=== PATIENT | male | born 1950 | race Caucasian/White ===

== ENCOUNTER 2020-03-20 09:08 | Outpatient (REF) | payer MEDICARE, SELFPAY ==
[2020-03-20 10:12] LABS: Blood Urea Nitrogen 24 mg/dL (9-16); Estimated Glomerular Filt Rate > 60
== END 2020-03-20 09:09 | disposition home or self-care (01) ==
LOC: HO.LAB 09:08
PROVIDERS: PCP Internal Medicine; Visit Provider Internal Medicine
DX: R79.9 Abnormal finding of blood chemistry, unspecified (principal)
CPT/HCPCS: 36415; 82565; 84520

== ENCOUNTER 2020-04-20 10:30 | Outpatient (REF) | payer MEDICARE, SELFPAY ==
[2020-04-20 11:29] LABS: Blood Urea Nitrogen 24 mg/dL (9-16); Estimated Glomerular Filt Rate > 60
== END 2020-04-20 10:31 | disposition home or self-care (01) ==
LOC: HO.LNP 10:30
PROVIDERS: Visit Provider Internal Medicine
DX: R79.9 Abnormal finding of blood chemistry, unspecified (principal)
CPT/HCPCS: 82565; 84520

== ENCOUNTER 2021-02-27 10:27 | Outpatient (REF) | payer MEDICARE, SELFPAY ==
[2021-02-27 10:31] LABS: MANUAL DIFF FLAG NO
[2021-02-27 11:01] LABS: Basophils Percent Auto 0.7 % (0-2); Eosinophils Absolute Auto 0.2 X10*3/uL (0.0-0.4); Eosinophils Percent Auto 3.1 % (0-4); Hemoglobin 13.1 g/dl (14.0-18.0); Imm Gran Abs Auto 0.01 X10*3/uL (0.00-0.03); Imm Gran Pct Auto 0.2 % (0.0-0.4); Lymphocytes Absolute Auto 1.6 X10*3/uL (1.2-4.9); Lymphocytes Percent Auto 28.5 % (20-40); Mean Corpuscular HGB Conc 31.2 g/dl (31.0-36.0); Mean Corpuscular Hemoglobin 27.2 pg (27.0-33.0); Mean Corpuscular Volume 87.3 fL (80.0-98.0); Mean Platelet Volume 10.3 fL (9.4-12.4); Monocytes Absolute Auto 0.3 X10*3/uL (0.1-1.2); Monocytes Percent Auto 5.6 % (2-11); Neutrophils Absolute Auto 3.5 x10*3/uL (2.0-8.3); Neutrophils Percent Auto 61.9 % (45-73); Platelet Count 222 X10*3/uL (160-400); Red Blood Count 4.81 X10*6/uL (4.60-5.80); White Blood Count 5.6 X10*3/uL (4.8-10.8)
[2021-02-27 11:14] LABS: Estimated Average Glucose 111 mg/dL; Hemoglobin A1c % 5.5 %
[2021-02-27 11:17] LABS: Appearance Urine CLEAR; Color Urine YELLOW; Glucose Urine UA NEG (NEG); Leukocyte Esterase Urine NEG (NEG); Nitrite Urine NEG (NEG); PH 5.5 (5.0-8.0); Specific Gravity - Urine >= 1.030 (1.005-1.025); Urine Blood NEG (NEG); Urine Ketones 5 MG/DL (NEG); Urine Protein NEG (NEG-TRACE)
[2021-02-27 11:25] LABS: Creatinine Urine 172.93 mg/dL; Microalbum/Creatinine Ratio Ur 4.6 ug/mg cr
[2021-02-27 11:29] LABS: Alanine Aminotransferase 13 U/L (0-40); Albumin Level 3.9 g/dL (3.5-5.0); Alkaline Phosphatase 72 U/L (39-117); Anion Gap 11 (12-20); Aspartate Amino Transferase 16 U/L (5-37); Bilirubin Total 0.7 mg/dL (0.0-1.0); Blood Urea Nitrogen 15 mg/dL (9-16); Calcium 9.1 mg/dL (8.4-10.2); Carbon Dioxide 29 mmol/L (22-29); Chloride 109 mmol/L (96-108); Estimated Glomerular Filt Rate > 60; Glucose Fasting 106 mg/dL (60-99); Potassium 4.6 mmol/L (3.3-5.1); Sodium 144 mmol/L (135-145); Total Protein 6.5 g/dL (6.5-8.0)
[2021-02-27 11:44] LABS: PSA,Total (Free>4and<10) 2.36 ng/mL (0.00-4.00)
== END 2021-02-27 10:28 | disposition home or self-care (01) ==
LOC: HO.LNP 10:27
PROVIDERS: Visit Provider Internal Medicine
DX: Z12.5 Encounter for screening for malignant neoplasm of prostate (principal); R73.03 Prediabetes; I10 Essential (primary) hypertension; R79.9 Abnormal finding of blood chemistry, unspecified; N40.0 Benign prostatic hyperplasia without lower urinary tract symptoms
CPT/HCPCS: 80053; 81003; 82043; 83036; 84153; 85025

== ENCOUNTER 2022-04-30 11:20 | Outpatient (REF) | payer MEDICARE, SELFPAY ==
[2022-04-30 11:26] LABS: MANUAL DIFF FLAG NO
[2022-04-30 12:01] LABS: Basophils Absolute Auto 0.1 X10*3/uL (0.0-0.2); Basophils Percent Auto 0.9 % (0-2); Eosinophils Absolute Auto 0.3 X10*3/uL (0.0-0.4); Eosinophils Percent Auto 3.9 % (0-4); Hematocrit 45.5 % (42.0-52.0); Hemoglobin 14.1 g/dl (14.0-18.0); Imm Gran Abs Auto 0.04 X10*3/uL (0.00-0.03); Imm Gran Pct Auto 0.6 % (0.0-0.4); Lymphocytes Percent Auto 30.4 % (20-40); Mean Corpuscular Hemoglobin 26.4 pg (27.0-33.0); Mean Platelet Volume 9.8 fL (9.4-12.4); Monocytes Absolute Auto 0.4 X10*3/uL (0.1-1.2); Monocytes Percent Auto 5.8 % (2-11); Neutrophils Absolute Auto 3.9 x10*3/uL (2.0-8.3); Neutrophils Percent Auto 58.4 % (45-73); Platelet Count 214 X10*3/uL (160-400); Red Blood Count 5.35 X10*6/uL (4.60-5.80); White Blood Count 6.7 X10*3/uL (4.8-10.8)
[2022-04-30 12:09] LABS: Appearance Urine Clear; Color Urine Yellow; Glucose Urine UA Negative (Negative); Leukocyte Esterase Urine Negative (Negative); Nitrite Urine Negative (Negative); UMIC TRIGGER UACC YES; Urine Blood Trace (Negative); Urine Ketones Negative (Negative); Urine Protein Negative (Neg-Trace)
[2022-04-30 12:12] LABS: Bacteria Urine None Seen (None Seen); Hyaline Casts Urine 0-2 /LPF (0-2); Squamous Epithelial Cell Urine 0-2 /HPF (0-2); WBC Urine 0-5 /HPF (0-5)
[2022-04-30 12:23] LABS: Estimated Average Glucose 123 mg/dL; Hemoglobin A1c % 5.9 %
[2022-04-30 12:40] LABS: Creatinine Urine 120.76 mg/dL; Microalbum/Creatinine Ratio Ur 7.4 ug/mg cr
[2022-04-30 13:06] LABS: Alanine Aminotransferase 16 U/L (0-40); Alkaline Phosphatase 71 U/L (39-117); Anion Gap 12 (12-20); Aspartate Amino Transferase 18 U/L (5-37); Bilirubin Total 0.5 mg/dL (0.0-1.0); Blood Urea Nitrogen 21 mg/dL (9-16); Calcium 8.7 mg/dL (8.4-10.2); Carbon Dioxide 29 mmol/L (22-29); Chloride 108 mmol/L (96-108); Cholesterol 214 mg/dL; Estimated Glomerular Filt Rate > 60; Glucose Fasting 109 mg/dL (60-99); HDL Cholesterol 48 mg/dL; LDL Cholesterol Calculated 143 mg/dl; Potassium 4.7 mmol/L (3.3-5.1); Sodium 144 mmol/L (135-145); Total Protein 6.4 g/dL (6.5-8.0); Triglycerides 117 mg/dL
[2022-04-30 13:22] LABS: PSA,Total (Free>4and<10) 3.16 ng/mL (0.00-4.00)
== END 2022-04-30 11:21 | disposition home or self-care (01) ==
LOC: HO.LNP 11:20
PROVIDERS: Visit Provider Internal Medicine
DX: I10 Essential (primary) hypertension (principal); R73.09 Other abnormal glucose; N40.0 Benign prostatic hyperplasia without lower urinary tract symptoms; Z12.5 Encounter for screening for malignant neoplasm of prostate
CPT/HCPCS: 80053; 80061; 81001; 82043; 83036; 84153; 85025

== ENCOUNTER 2022-06-04 10:49 | Outpatient (REF) | payer MEDICARE, SELFPAY ==
[2022-06-04 13:03] LABS: PSA,Total (Free>4and<10) 2.95 ng/mL (0.00-4.00)
== END 2022-06-04 10:50 | disposition home or self-care (01) ==
LOC: HO.LNP 10:49
PROVIDERS: Visit Provider Internal Medicine
DX: Z12.5 Encounter for screening for malignant neoplasm of prostate (principal); R97.20 Elevated prostate specific antigen [PSA]
CPT/HCPCS: 84153

== ENCOUNTER 2022-06-12 09:33 | Outpatient (REF) | payer MEDICARE, SELFPAY ==
--- NOTE | ~2022-06-12 | XR_ITS ---
EXAMINATION: XR LUMBOSACRAL SPINE WITH OBLIQUES CLINICAL INFORMATION: Spinal stenosis. Neurogenic claudication COMPARISON: None available. TECHNIQUE: AP, both oblique, and lateral views of the lumbar spine. Lateral view of the lumbosacral junction. FINDINGS: There is normal lumbar lordosis. The vertebral heights and alignment is normal. Loss of disc height virtually at every disc level with mild ventral spondylosis upper lumbar spine. No visible acute fracture, dislocation or lytic process seen. SI joints are symmetrical. There are bilateral hip prosthesis. XR/XR lumbar spine 4V min IMPRESSION: Degenerative disc changes virtually at every disc level with mild ventral spondylosis. No visible acute fracture, dislocation or lytic process seen.
== END 2022-06-12 09:34 | disposition home or self-care (01) ==
LOC: HO.HOSX 09:33
PROVIDERS: PCP Internal Medicine; Visit Provider Neurological Surgery
DX: M48.062 Spinal stenosis, lumbar region with neurogenic claudication (principal); M43.16 Spondylolisthesis, lumbar region
CPT/HCPCS: 72110; 99202

== ENCOUNTER 2022-06-24 06:02 | Inpatient (IN) | payer MEDICARE, SELFPAY ==
--- NOTE | 2022-06-20 | ECG_ITS ---
Test Reason : PREOP Blood Pressure : / mmHG Vent. Rate : 061 BPM Atrial Rate : 061 BPM P-R Int : 300 ms QRS Dur : 078 ms QT Int : 408 ms P-R-T Axes : 031 -13 019 degrees QTc Int : 410 ms Sinus rhythm with 1st degree A-V block cannot exclude old inferior infarct Abnormal ECG No previous ECGs available Referred By: Kayleigh Snow Electronically Signed By:JOSE WASSERMAN
[2022-06-20 12:11] VITALS: BMI 39.1
[2022-06-20 12:17] VITALS: BP 143/74; PULSE 64; RESP 16; O2SAT 95
--- NOTE | 2022-06-20 12:29 | HO.ANESPROP2 ---
Documented by User: Kayleigh Snow NP 06/20/22 12:46 HPI - Anesthesia Eval Consult details Narrative: 71yo M for Transkambin Lumbar Interbody Fusion PMFSH Active Problems Active Problems: All Active Problems (Updated 06/19/22 @ 11:13 by Lisa Nolan RN) Lumbar stenosis with neurogenic claudication (Acute) Spondylolisthesis, lumbar region (Acute) Past Medical History Medical History (Updated 06/20/22 @ 12:55 by Lisa Nolan RN) Hematuria Sleep apnea Spinal stenosis Family History Family history of problems with anesthesia: No Surgical History Surgical History (Updated 06/20/22 @ 12:52 by Lisa Nolan RN) History of back surgery History of bilateral knee replacement History of hip replacement Hx of carpal tunnel repair Hx of colonoscopy Hx of rotator cuff surgery History of Problems with Anesthesia: No Social History Social History Are you a primary career services representative to a significant other at home: No Do you presently have visiting nurse or other home services: No Patient Tobacco Use Status: Former Tobacco user Use of substances other than those prescribed or required for medical reasons: No Have you been hit, kicked, punched, or otherwise hurt by someone within the past year? If so, by whom?: No Are you DNR?: No Advance Directives: No Advance Directives Information Provided: No Advance Directives on File: No Recently lost weight without trying: No Eating poorly because of decreased appetite: No Nutrition Risks: No Nutritional Risk Poor oral hygiene: No Narrative Narrative: No recent illness No CP/SOB with minimal activity. Limited d/t back pain Meds Allergies Allergy/AdvReac Type Severity Reaction Status Date / Time adhesive Allergy Unknown Verified 06/19/22 10:49 Home Medications Medication Instructions Recorded Confirmed Last Taken Type tamsulosin 0.4 mg capsule 0.8 mg PO QAM 06/19/22 06/19/22 06/24/22 History multivitamin 1 tab PO DAILY 06/20/22 06/20/22 Unknown History Exam Exam Date and Time: June 20, 2022 1229 Height,Weight and Vital Signs: Height 5 ft 9 in Weight 120.202 kg Last Vital Signs Pulse 64 06/20/22 12:17 Resp 16 06/20/22 12:17 BP 143/74 H 06/20/22 12:17 Pulse Ox 95 06/20/22 12:17 O2 Del Method Room Air 06/20/22 12:17 Pertinent Lab Results Pertinent Lab Results: Laboratory Tests 04/30/22 04/30/22 07:45 07:45 WBC 6.7 Hgb 14.1 Hct 45.5 Plt Count 214 Sodium 144 Potassium 4.7 Chloride 108 Carbon Dioxide 29 BUN 21 H Creatinine 0.82 Airway Mallampati Class: I TM Dist: >3cm Neck ROM: Full Loose/Missing/Broken Teeth: No (Capped left front upper, crowns molar) Heart: RRR Lungs: CTAB Assessment and Plan Assessment Anesthesia Assessment: Anesthesia Plan Discussed and PAT Visit Final Anesthetic Review Family History of Problems with Anesthesia: No History of Problems with Anesthesia: No Documented by User: Kelsey Liu MD 06/24/22 07:10 [facility] Past Medical History Medical History (Updated 06/20/22 @ 12:55 by Lisa Nolan RN) Hematuria Sleep apnea Spinal stenosis Surgical History Surgical History (Updated 06/20/22 @ 12:52 by Lisa Nolan RN) History of back surgery History of bilateral knee replacement History of hip replacement Hx of carpal tunnel repair Hx of colonoscopy Hx of rotator cuff surgery History of Problems with Anesthesia: No Social History Social History Are you a primary career services representative to a significant other at home: No Do you presently have visiting nurse or other home services: No Patient Tobacco Use Status: Former Tobacco user Use of substances other than those prescribed or required for medical reasons: No Have you been hit, kicked, punched, or otherwise hurt by someone within the past year? If so, by whom?: No Are you DNR?: No Advance Directives: No Advance Directives Information Provided: No Advance Directives on File: No Recently lost weight without trying: No Eating poorly because of decreased appetite: No Nutrition Risks: No Nutritional Risk Poor oral hygiene: No Meds Allergies Allergy/AdvReac Type Severity Reaction Status Date / Time adhesive Allergy Unknown Verified 06/19/22 10:49 Home Medications Medication Instructions Recorded Confirmed Last Taken Type tamsulosin 0.4 mg capsule 0.8 mg PO QAM 06/19/22 06/19/22 06/24/22 History multivitamin 1 tab PO DAILY 06/20/22 06/20/22 Unknown History Exam Airway Mallampati Class: III (implant top left, couple crown laterally) Assessment and Plan Assessment Anesthesia Assessment: Anesthesia Plan Discussed (risk of nerve damage and vission loss discussed. right LE weakness, sensory intact. reports left LE and bilateral UE motor sensory intact) Final Anesthetic Review History of Problems with Anesthesia: No NPO: Yes ASA Class: II Final Preanesthetic Review: No Changes in Pt Med Stat, Meds/Allgs Chart Reviewed and Consent Obtained/Reviewed Patient Risk: Intermediate Procedure Risk: Intermediate Anesthetic Plan Anesthetic Plan: GA
[2022-06-24] VITALS (14 sets, daily range): BP systolic 125–185; BP diastolic 63–85; PULSE 58–78; RESP 12–20; TEMP 36.1–36.9; O2SAT 92–99
--- NOTE | ~2022-06-24 | FL_ITS ---
EXAMINATION: XR FLUOROSCOPY WITH IMAGES CLINICAL INFORMATION: Lumbar interbody fusion. COMPARISON: Lumbar spine x-ray 06/12/2021. TECHNIQUE: Fluoroscopy Supervised By: Dr. King. Fluoroscopy Time: 1.5 minutes. Cumulative Dose: 130 mGy. DAP: 21 Gy-cm2. Images: 2. FINDINGS: Fluoroscopy images demonstrate posterior fusion hardware with rods and transpedicular screws and intervertebral body disc spacer in the lumbar spine. FL/FL guidance in OR IMPRESSION: Fluoroscopy guidance for lumbar fusion.
--- OUTSIDE RECORDS SUMMARY | 2022-06-24 06:21 | XMS_ITS | Continuity of Care Document ---
Author Name Unknown Organization [facility] Address [address] [place] [address]- Care Team Providers Care Poleyard Supervisor Name Role Phone Danish Ashby MD Primary Care Physician [phone] Encounter [facility] [place] [id number] Date(s): 07/31/21 - 09/05/21 [facility] [address] [place] [address]- Attending Physician: Clyde Hudson MD Admitting Physician: Clyde Hudson MD Referring Physician: Eloy Dickerson MD Allergies, Adverse Reactions, Alerts Substance Reaction Severity Status Adhesive Bandage 1 Active 1pt allergic to the glue of some adhesive bandages Immunizations Given and Recorded Vaccine Date Status Refusal Reason influenza virus vaccine, inactivated 11/08/20 Give n Medications Flomax 0.4 mg oral capsule 0.4 mg, 1, capsule, By Mouth, Daily in AM, # 30 capsule, Refills 0, Maintenance, 10/02/18 7:27:36 EDT Start Date: 10/02/18 Status: Ordered One-A-Day Essentials Multiple Vitamins oral tablet By Mouth, Daily, 0 Refills, Maintenance, 03/29/20 13:24:00 EST, Partial fill upon patient request if the prescription is for a schedule II opioid drug. Start Date: 03/29/20 Status: Ordered tiZANidine 2 mg oral tablet 2 mg, 1, tablet, By Mouth, Every 8 hours, # 42 tablet, Refills 0, Tot. Refills 0, Maintenance, 08/17/21 16:19:00 EDT, Route to Pharmacy Electronically, [facility], Partial fill upon patient request if the prescription is for a schedule I... Start Date: 7/8/22 Stop Date: 08/31/21 Status: Ordered Tylenol 325 mg oral tablet 975 mg, 3, tablet, By Mouth, Every 6 hours, PRN, Refills 0, Maintenance, Pain , Moderate, 11/08/20 12:29:00 EDT, Partial fill upon patient request if the prescription is for a schedule II opioid drug. Start Date: 11/08/20 Status: Ordered Problem List Condition Effective Dates Status Health Status Inform ant HTN (hypertension)(Confirmed) Active Enlarged prostate(Confirmed) Active Morbid obesity(Confirmed) Active Obese class II(Confirmed) Active PIYUSH (obstructive sleep apnea)(Confirmed) Active Social History Social History Type Response Smoking Status Former smoker, quit more than 30 days ago; Other: quit smoking in 1998; entered on: 04/12/20 Sex
--- OUTSIDE RECORDS SUMMARY | 2022-06-24 06:21 | XMS_ITS | Continuity of Care Document ---
Author Name Unknown Organization [facility] Address Unknown Care Team Providers Care Trucking Manager Name Role Phone Symone CHOUDHARY, Danish Primary Care Physician [phone] [facility] [place] - 10/27/20 [facility] Attending Physician: Leonila Holden RD Allergies, Adverse Reactions, Alerts Substance Reaction Severity Status Adhesive Bandage 1 Active 1pt allergic to the glue of some adhesive bandages Medications Advil 200 mg oral tablet 3 tablets, By Mouth, Every 6 hours, PRN Pain , Moderate, 0 Refills, Maintenance, 08/30/19 11:24:00 EDT Start Date: 08/30/19 Status: Ordered Flomax 0.4 mg oral capsule 0.4 mg, 1, capsule, By Mouth, Daily in AM, # 30 capsule, Refills 0, Maintenance, 10/02/18 7:27:36 EDT Start Date: 10/02/18 Status: Ordered Lisinopril = 20 mg, By Mouth, Daily in AM, 0 Refills, Maintenance, 08/30/19 11:21:00 EDT Start Date: 08/30/19 Status: Ordered One-A-Day Essentials Multiple Vitamins oral tablet By Mouth, Daily, 0 Refills, Maintenance, 03/29/20 13:24:00 EST, Partial fill upon patient request if the prescription is for a schedule II opioid drug. Start Date: 03/29/20 Status: Ordered Problem List Condition Effective Dates Status Health Status Inform ant HTN (hypertension)(Confirmed) Active Enlarged prostate(Confirmed) Active Morbid obesity(Confirmed) Active PIYUSH (obstructive sleep apnea)(Confirmed) Active Vital Signs Most recent to oldest [Reference Range]: 1 Height 171 cm (10/20/20 12:46 PM) Weight 132 kg (10/20/20 12:46 PM) Body Mass Index [18.5-24.99] 45.14 *>HHI* (10/20/20 12:46 PM) Social History Social History Type Response Smoking Status Former smoker, quit more than 30 days ago; Other: quit smoking in 1998; entered on: 04/12/20 Sex
--- OUTSIDE RECORDS SUMMARY | 2022-06-24 06:21 | XMS_ITS | Continuity of Care Document ---
Author Name Unknown Organization [facility] Address Unknown Care Team Providers Care Office Support Associate Name Role Phone Danish Ashby MD Primary Care Physician [phone] Encounter [facility] [place] Date(s): 01/08/21 - 01/15/21 [facility] Encounter Diagnosis Obesity (BMI 30-39.9)(Discharge Diagnosis) - 01/08/21 S/P laparoscopic sleeve gastrectomy(Discharge Diagnosis) - 01/08/21 Attending Physician: Sher Clifton Referring Physician: Danish Ashby MD Allergies, Adverse Reactions, Alerts Substance Reaction Severity Status Adhesive Bandage 1 Active 1pt allergic to the glue of some adhesive bandages Immunizations Given and Recorded Vaccine Date Status Refusal Reason influenza virus vaccine, inactivated 11/08/20 Give n Medications Colace sodium 100 mg oral capsule 100 mg, 1, capsule, By Mouth, 2 times a day, with plenty of water, # 20 capsule, Refills 0, Tot. Refills 0, Maintenance, 11/08/20 12:29:00 EDT, Route to Pharmacy Electronically, [facility], Partial fill upon patient request if the prescr... Start Date: 11/08/20 Status: Ordered Flomax 0.4 mg oral capsule 0.4 mg, 1, capsule, By Mouth, Daily in AM, # 30 capsule, Refills 0, Maintenance, 10/02/18 7:27:36 EDT Start Date: 10/02/18 Status: Ordered omeprazole 20 mg oral enteric coated capsule 1 capsule = 20 mg, By Mouth, 2 times a day, # 120 capsule, 4 Refills, Maintenance, 11/08/20 12:30:00 EDT, EC Capsule, [facility], Partial fill upon patient request if the prescription is for a schedule II opioid drug., 175.2, cm, ... Start Date: 11/08/20 Status: Ordered ondansetron 4 mg oral tablet, disintegrating 1 tablet = 4 mg, By Mouth, Every 8 hours, PRN as needed for nausea/vomiting, # 20 tablet, 0 Refills, Acute 11/14/21 14:19:00 EDT, 11/14/20 14:19:00 EDT, DIS Tablet, [facility] #[id number], Partial fill upon patient request if the prescription is for a aba... Start Date: 11/14/20 Stop Date: 11/14/21 Status: Ordered One-A-Day Essentials Multiple Vitamins oral tablet By Mouth, Daily, 0 Refills, Maintenance, 03/29/20 13:24:00 EST, Partial fill upon patient request if the prescription is for a schedule II opioid drug. Start Date: 03/29/20 Status: Ordered oxyCODONE 5 mg oral tablet 5 mg, 1, tablet, By Mouth, Every 4 hours, PRN, # 12 tablet, Refills 0, Tot. Refills 0, Maintenance,Pain , Moderate, 11/08/20 12:30:00 EDT, Route to Pharmacy Electronically, [facility],Partial fill upon patient request if the prescripti... Start Date: 11/08/20 Status: Ordered Tylenol 325 mg oral tablet 975 mg, 3, tablet, By Mouth, Every 6 hours, Refills 0, Maintenance, 11/08/20 12:29:00 EDT, Partial fill upon patient request if the prescription is for a schedule II opioid drug. Start Date: 11/08/20 Status: Ordered Problem List Condition Effective Dates Status Health Status Inform ant HTN (hypertension)(Confirmed) Active Enlarged prostate(Confirmed) Active Morbid obesity(Confirmed) Active Obese class II(Confirmed) Active PIYUSH (obstructive sleep apnea)(Confirmed) Active Diagnosis Diagnosis Type Effective Dates Health Status Clinical Service Informant Obesity (BMI 30-39.9) Discharge Diagnosis 01/08/21 S/P laparoscopic sleeve gastrectomy Discharge Diagnosis 01/08/21 Vital Signs Most recent to oldest [Reference Range]: 1 Height 175.2 cm (01/08/21 10:02 AM) Weight 112.5 kg (01/08/21 10:02 AM) Pulse Rate [55-90 bpm] 57 bpm (01/08/21 10:02 AM) Body Mass Index [18.5-24.99] 36.65 *>HHI* (01/08/21 10:02 AM) Blood Pressure [90-138/55-84 mm Hg] 164/ 88mm Hg *H* (01/08/21 10:02 AM) Temperature [96.8-100.4 DegF] 96.7 DegF *L* (01/08/21 10:02 AM) Blood pressure sites Arm, left (01/08/21 10:02 AM) Temperature Route Temporal (01/08/21 10:02 AM) Weight Obtained Via Standing scale (01/08/21 10:02 AM) Social History Social History Type Response Smoking Status Former smoker, quit more than 30 days ago; Other: quit smoking in 1998; entered on: 04/12/20 Sex
--- OUTSIDE RECORDS SUMMARY | 2022-06-24 06:21 | XMS_ITS | Continuity of Care Document ---
Author Name Unknown Organization [facility] Address Unknown Care Team Providers Care Taffy Candy Maker Name Role Phone Danish Ashby MD Primary Care Physician [phone] En[place] [facility] [place] 02/27/21 - 03/06/21 [facility] Encounter Diagnosis Obesity (BMI 30-39.9)(Discharge Diagnosis) - 02/27/21 S/P laparoscopic sleeve gastrectomy(Discharge Diagnosis) - 02/27/21 Attending Physician: Sher Clifton Referring Physician: Danish [...] 11/08/20 12:29:00 EDT, Route to Pharmacy Electronically, [facility], Partial fill upon patient [...] Refills, Maintenance, 11/08/20 12:30:00 EDT, EC Capsule, [facility], Partial fill upon patient request if the prescription is for a schedule II opioid drug., 175.2, cm, ... Start Date: 11/08/20 Status: Ordered ondansetron 4 mg oral tablet, disintegrating 1 tablet = 4 mg, By Mouth, Every 8 hours, PRN as needed for nausea/vomiting, # 20 tablet, 0 Refills, Acute 11/14/21 14:19:00 EDT, 11/14/20 14:19:00 EDT, DIS Tablet, [facility]/pharmacy #[id number], Partial fill upon patient [...] 11/08/20 12:30:00 EDT, Route to Pharmacy Electronically, [facility],Partial fill upon patient request [...] Service Informant Obesity (BMI 30-39.9) Discharge Diagnosis 02/27/21 S/P laparoscopic sleeve gastrectomy Discharge Diagnosis 02/27/21 Social History Social History Type Response Smoking Status Former smoker, quit more than 30 days ago; Other: quit smoking in 1998; entered on: 04/12/20 Sex
--- OUTSIDE RECORDS SUMMARY | 2022-06-24 06:21 | XMS_ITS | Continuity of Care Document ---
Author Name Unknown Organization [facility] Address [address] [place] [address], [address] [place] [address]- Care Team Providers Care Engineering Program Manager Name Role Phone Danish Ashby MD Primary Care Physician [phone] [place] [facility] [place] 08/06/21 [facility] [address] [place] [address] Drive, [address] [place], [place] [address] Attending Physician: Eloy Dickerson MD Referring Physician: Danish Ashby MD Allergies, Adverse [...] 11/08/20 12:29:00 EDT, Route to Pharmacy Electronically, [facility], Partial fill upon patient request [...] Refills, Maintenance, 11/08/20 12:30:00 EDT, EC Capsule, [facility], Partial fill upon patient request if the prescription is for a schedule II opioid drug., 175.2, cm, ... Start Date: 11/08/20 Status: Ordered ondansetron 4 mg oral tablet, disintegrating 1 tablet = 4 mg, By Mouth, Every 8 hours, PRN as needed for nausea/vomiting, # 20 tablet, 0 Refills, Acute 11/14/21 14:19:00 EDT, 11/14/20 14:19:00 EDT, DIS Tablet, [facility] #[id number], Partial fill upon patient request if [...] 11/08/20 12:30:00 EDT, Route to Pharmacy Electronically, [facility],Partial fill upon patient request if the [...] II(Confirmed) Active PIYUSH (obstructive sleep apnea)(Confirmed) Active Vital Signs Most recent to oldest [Reference Range]: 1 Height 175.2 cm (07/30/21 9:34 AM) Weight 112.5 kg (07/30/21 9:34 AM) Body Mass Index [18.5-24.99] 36.65 *>HHI* (07/30/21 9:34 AM) Social History Social History Type Response Smoking Status Former smoker, quit more than 30 days ago; Other: quit smoking in 1998; entered on: 04/12/20 Sex
--- OUTSIDE RECORDS SUMMARY | 2022-06-24 06:21 | XMS_ITS | Continuity of Care Document ---
Author Name Unknown Organization [facility] Address [address] [place] [address]- Care Team Providers Care Cotton Puller Name Role Phone Danish Ashby MD Primary Care Physician [phone] En[place] [facility] [place] Date(s): 08/14/21 - 09/13/21 [facility] [address] [place] [address] Attending Physician: Fern Evangelista Admitting Physician: Fern Evangelista Referring Physician: AdmtrFern Allergies, Adverse Reactions, Alerts Substance Reaction Severity [...] 08/17/21 16:19:00 EDT, Route to Pharmacy Electronically, [facility], Partial fill upon patient request if the prescription is for a schedule I... Start Date: 08/17/21 Stop Date: 08/31/21 Status: Ordered Tylenol 325 [...]
--- OUTSIDE RECORDS SUMMARY | 2022-06-24 06:21 | XMS_ITS ---
Author Name Deon Pena Jr Address [address] [place] [address] Organization [facility] Address [address] [place] [address] Care Team Providers Care Payroll Examiner Name Role Phone Deon Pena Jr Unavailable PROBLEMS Type Condition ICD9-CM Code [id number] Code Onset Dates Condition Status SNOMED Code Problem Esophageal reflux 530.81 Active 155144275 Problem Special screening for malignant neoplasms, colon V76.51 Active [id number] ALLERGIES Substance Reaction Event Type Date Status plastic medical tape Unknown Non Drug Allergy Jan, 011 Active ENCOUNTERS Encounter Location Date Diagnosis [facility] [address] [place] [phone] Mar, [facility] [address] [place] [address] Jan, Esophageal reflux 530.81 and Special screening for malignant neoplasms, colon V76.51 IMMUNIZATIONS No Known Immunizations SOCIAL HISTORY Never Assessed REASON FOR REFERRAL FUNCTIONAL STATUS PLAN OF CARE Activity Details VITAL SIGNS Weight 287 lbs 2011-01-17 Height 68 in 2011-01-17 BMI 43.63 kg/m2 2011-01-17 Heart Rate 68 /min 2011-01-17 Blood pressure systolic 162 mm Hg Blood pressure diastolic 90 mm Hg 2011-01 MEDICATIONS Medication Instructions Dosage Frequency Start Date End Date Du ration Status Advil Active PriLOSEC Active Ambien Active Tums Active PROCEDURES No Known procedures RESULTS Name Result Date Reference Range GI BIOPSY 2011-03-22 G.I. BIOPSY REASON FOR VISIT COLON SCREENING, SCREENING COLON, gastroesophageal reflux disease Insurance Providers Health Insurance Type Health Plan Insurance Address Health Plan Insurance Phone Health Plan Insurance Name Health Plan Coverage Dates Member ID Patient Relationship to Subscriber Patient Address Patient Phone Patient Name Patient Date of Subscriber ID Subscriber Name Subscriber Date of Group No HMO BLUE BCBS [place] CLAIMS [address] [facility] [id number] HMO BLUE charity WOLFF EZ [id number] MEDICARE OF [place] [address] [facility] [address] MEDICARE OF [place] charity LARA NEW EZ [id number] MEDEX ATTN CLAIMS [address] [facility] [phone] MEDEX self JANE NEW EZ [id number]
--- OUTSIDE RECORDS SUMMARY | 2022-06-24 06:21 | XMS_ITS | Continuity of Care Document ---
Author Name Unknown Organization [facility] Address [address] [place] [address] [address], [address] [place] [address]- Care Team Providers Care Bankruptcy Processor Name Role Phone Danish Ashby MD Primary Care Physician [phone] [place] [facility] [place]s): 01/07/22 - 02/06/22 [facility] [address] [place] [address] Drive, [address] [place], [place] [address] Attending Physician: Fern Evangelista Admitting Physician: AdmFern urbina Referring Physician: AdmtrFern Allergies, Adverse Reactions, Alerts [...] 08/17/21 16:19:00 EDT, Route to Pharmacy Electronically, [facility], Partial fill upon patient [...] Date: 11/08/20 Status: Ordered Problem List Condition Confirmation Course Effective Dates Status Health St atus Informant HTN (hypertension) Confirmed Active Enlarged prostate Confirmed Active Morbid obesity Confirmed Active Obese class II Confirmed Active PIYUSH (obstructive sleep apnea) Confirmed Active Social History Social History Type Response Smoking Status Former smoker, quit more than 30 days ago; Other: quit smoking in 1998; entered on: 04/12/20 Sex Patient Care team information Care Team Personnel Name: Danish Ashby MD Position: Reference Physician Member Role: PCP Address: Address: [address] [place] [address] Danish [place], [place] [address] Name: Kaye Van NP Position: [facility] PCO Associate Professional Member Role: Primary Care Nurse Name: Denise Cleary RN Position: [facility] SN RN Member Role: Primary Care Nurse Name: Corinna Scott RN Position: [facility] RN Member Role: Primary Care Nurse Name: Trista oRmo RN Position: [facility] RN Member Role: Primary Care Nurse Name: Danette Garcia RN Position: [facility] RN Member Role: Primary Care Nurse Name: Rebecca Comer RN Position: [facility] RN Member Role: Primary Care Nurse Name: Tatyana Infante RN Position: S RN Member Role: Primary Care Nurse Name: Leonila Duke RN Position: [facility] RN Member Role: Primary Care Nurse Care Team Related Persons Name: JANES AYERS Address: home [address] [place] [id number]
--- OUTSIDE RECORDS SUMMARY | 2022-06-24 06:21 | XMS_ITS | Continuity of Care Document ---
Author Name Unknown Organization [facility] As [facility] Address [address] [place] [address] [address] [place] [address]- Care Team Providers Care Ear Mold Laboratory Technician Name Role Phone Symone CHOUDHARY, Danish Primary Care Physician [phone] Encounter [facility] Date(s): 09/07/20 - 09/14/[address] [place] [address]- Attending Physician: Leonila Holden RD Allergies, Adverse [...] ant HTN (hypertension)(Confirmed) Active Enlarged prostate(Confirmed) Active PIYUSH (obstructive sleep apnea)(Confirmed) Active Social History Social History Type Response Smoking Status Former smoker, quit more than 30 days ago; Other: quit smoking in 1998; entered on: 04/12/20 Sex
--- OUTSIDE RECORDS SUMMARY | 2022-06-24 06:21 | XMS_ITS | Continuity of Care Document ---
Author Name Unknown Organization [facility] Address Unknown Care Team Providers Care Canadian Bacon Tier Name Role Phone Danish Ashby MD Primary Care Physician [phone] En[place] [facility] [place] Date(s): 02/27/21 - 03/29/21 [facility] Attending Physician: Fern Evangelista Admitting Physician: AdmtrFern Referring Physician: AdmtrFern Allergies, Adverse Reactions, Alerts [...] 11/08/20 12:29:00 EDT, Route to Pharmacy Electronically, [facility], Partial fill upon patient [...] Refills, Maintenance, 11/08/20 12:30:00 EDT, EC Capsule, [facility], Partial fill upon patient request if the prescription is for a schedule II opioid drug., 175.2, cm, ... Start Date: 11/08/20 Status: Ordered ondansetron 4 mg oral tablet, disintegrating 1 tablet = 4 mg, By Mouth, Every 8 hours, PRN as needed for nausea/vomiting, # 20 tablet, 0 Refills, Acute 11/14/21 14:19:00 EDT, 11/14/20 14:19:00 EDT, DIS Tablet, [facility]/pharmacy #[id number], Partial fill upon patient request [...] 11/08/20 12:30:00 EDT, Route to Pharmacy Electronically, [facility],Partial fill upon patient request if the [...]
--- OUTSIDE RECORDS SUMMARY | 2022-06-24 06:21 | XMS_ITS | Continuity of Care Document ---
Author Name Unknown Organization [facility] ter Address [address] [place] [address]- Care Team Providers Care Industrial Maintenance Repairer Name Role Phone Danish Ashby MD Primary Care Physician [phone] [place] [facility] [place] Date(s): 09/02/19 - 09/02/[address] [address]- [facility] Discharge Disposition: A-D/C Home Attending Physician: Jaxson Dowd MD Admitting Physician: Jaxson Dowd MD Referring Physician: Jaxson Dowd MD Allergies, Adverse Reactions, Alerts Substance Reaction Severity Status Adhesive Bandage Active Medications Advil 200 mg oral tablet 3 [...] 11:21:00 EDT Start Date: 08/30/19 Status: Ordered Vital Signs Most recent to oldest [Reference Range]: 1 2 3 Height 175.2 cm (09/02/19 9:27 AM) 175.2 cm (08/30/19 11:42 AM) Weight 140.8 kg (09/02/19 9:27 AM) 136.5 kg (08/30/19 11:42 AM) Oxygen Saturation [94-100 %] 94 % (7/23/20 12:15 PM) 98 % (09/02/19 12:00 PM) 97 % (09/02/19 9:27 AM) Pulse Rate [55-90 bpm] 53 bpm *L* (09/02/19 9:27 AM) Body Mass Index [18.5-24.99] 45.87 *>HHI* (09/02/19 9:27 AM) 44.47 *>HHI* (08/30/19 11:42 AM) Blood Pressure [90-138/55-84 mm Hg] 153/75mm Hg *H* (09/02/19 12:15 PM) 144/71mm Hg *H* (09/02/19 12:00 PM) 146/84mm Hg *H* (09/02/19 9:27 AM) Respiratory Rate [16-30 br/min] 18 br/min (09/02/19 9:27 AM) Temperature [96.8-100.4 DegF] 98.4 DegF (09/02/19 12:15 PM) 97.3 DegF (09/02/19 12:00 PM) 98.5 DegF (09/02/19 9:27 AM) Liters per Minute 5 L/min (09/02/19 12:00 PM) Mode of Delivery (Oxygen) Room air (09/02/19 12:15 PM) Simple face mask (09/02/19 12:00 PM) Room air (09/02/19 9:27 AM) Blood pressure sites Arm, left (09/02/19 9:27 AM) Temperature Route Temporal (09/02/19 12:15 PM) Temporal (09/02/19 12:00 PM) Temporal (09/02/19 9:27 AM) Dry Weight 140.8 kg (09/02/19 9:27 AM) 136.5 kg (08/30/19 11:42 AM) Weight Obtained Via Standing scale (09/02/19 9:27 AM) Patient/family stated (08/30/19 11:42 AM) Dry Weight Obtained Via Standing scale (09/02/19 9:27 AM) Patient/family stated (08/30/19 11:42 AM) Social History Social History Type Response Smoking Status Former smoker; Type: Cigarettes; Other: NON SMOKER FOR 20 YEARS; entered on: 07/24/17 Sex
--- OUTSIDE RECORDS SUMMARY | 2022-06-24 06:21 | XMS_ITS | Continuity of Care Document ---
Author Name Unknown Organization [facility] Address [address] [place] [address], [address] [place] [address]- Care Team Providers Care Firebrick Layer Helper Name Role Phone Danish Ashby MD Primary Care Physician [phone] [place] [facility] [id number] Date(s): 09/03/21 - 09/10/21 [facility] [address] [place] [address] Drive, [address] [place], [place] [address] Attending Physician: Eloy Dickerson MD Referring [...] 08/17/21 16:19:00 EDT, Route to Pharmacy Electronically, [facility], Partial fill upon patient request [...] oldest [Reference Range]: 1 Height 175.2 cm (09/03/21 11:01 AM) Weight 111.3 kg (09/03/21 11:01 AM) Body Mass Index [18.5-24.99] 36.26 *>HHI* (09/03/21 11:01 AM) Social History Social History Type Response Smoking Status Former smoker, quit more than 30 days ago; Other: quit smoking in 1998; entered on: 04/12/20 Sex
--- OUTSIDE RECORDS SUMMARY | 2022-06-24 06:21 | XMS_ITS | Continuity of Care Document ---
Author Name Unknown Organization [facility] Address [address] [place] [address] [address] [place] [address]- Care Team Providers Care Director Operating Name Role Phone Danish Ashby MD Primary Care Physician [phone] [id number] Date(s): 08/22/20 - 08/29/[address] [place] [address]- Attending Physician: Alli Khan MD Referring Physician: Danish Ashby MD Allergies, [...] prostate(Confirmed) Active PIYUSH (obstructive sleep apnea)(Confirmed) Active Vital Signs Most recent to oldest [Reference Range]: 1 Height 171 cm (08/22/20 10:43 AM) Weight 138.3 kg (08/22/20 10:43 AM) Pulse Rate [55-90 bpm] 59 bpm (08/22/20 10:43 AM) Body Mass Index [18.5-24.99] 47.3 *>HHI* (08/22/20 10:43 AM) Blood Pressure [90-138/55-84 mm Hg] 183/ 81mm Hg *H* (08/22/20 10:43 AM) Temperature [96.8-100.4 DegF] 97.4 DegF (08/22/20 10:43 AM) Social History Social History Type Response Smoking Status Former smoker, quit more than 30 days ago; Other: quit smoking in 1998; entered on: 04/12/20 Sex
--- OUTSIDE RECORDS SUMMARY | 2022-06-24 06:21 | XMS_ITS | Continuity of Care Document ---
Author Name Unknown Organization [facility] Address [address] [place] [address] [address] [place] [address]- Care Team Providers Care Jewelry Finisher Name Role Phone Danish Ashby MD Primary Care Physician [phone] [id number] - 06/14/[address] [place] [address]- Attending Physician: Leonila Holden RD Allergies, Adverse [...]
--- OUTSIDE RECORDS SUMMARY | 2022-06-24 06:21 | XMS_ITS | Continuity of Care Document ---
Author Name Unknown Organization [facility] Address [address] [place] [address] [address] [place] [address]- Care Team Providers Care Male Impersonator Name Role Phone Danish Ashby MD Primary Care Physician [phone] [place] [facility] [place]/12/20 - 04/19/[address] [place] [address]- Encounter Diagnosis Morbid obesity with BMI of 45.0-49.9, adult(Discharge Diagnosis) - 04/12/20 Attending Physician: Sher Clifton Referring Physician: Danish [...] prostate(Confirmed) Active PIYUSH (obstructive sleep apnea)(Confirmed) Active Diagnosis Diagnosis Type Effective Dates Health Status Cl inical Service Informant Morbid obesity with BMI of 45.0-49.9, adult Discharge Diagnosis 04/12/20 Procedures Procedure Date Related Diagnosis Body Site Status Operative procedure on right knee 09/2018 Completed Operative procedure on left knee 06/2018 Completed Operative procedure on right shoulder 2014 Completed Operative procedure on both hips Completed Vital Signs Most recent to oldest [Reference Range]: 1 Height 171 cm (04/17/20 11:40 AM) Weight 148 kg (04/17/20 11:40 AM) Body Mass Index [18.5-24.99] 50.61 *>HHI* (04/17/20 11:40 AM) Weight Obtained Via Standing scale (04/17/20 11:40 AM) Social History Social History Type Response Smoking Status Former smoker, quit more than 30 days ago; Other: quit smoking in 1998; entered on: 04/12/20 Sex
--- OUTSIDE RECORDS SUMMARY | 2022-06-24 06:21 | XMS_ITS | Continuity of Care Document ---
Author Name Unknown Organization [facility] Address Unknown Care Team Providers Care Technical Support Professional Name Role Phone Symone CHOUDHARY, Danish Primary Care Physician [phone] [place] [facility] [place]16[place] 10/19/20 [facility] Attending Physician: Leonila Holden RD [...]
--- OUTSIDE RECORDS SUMMARY | 2022-06-24 06:21 | XMS_ITS | Continuity of Care Document ---
Author Name Unknown Organization [facility] Address Unknown Care Team Providers Care Kiln Operator Helper Name Role Phone Symone CHOUDHARY, Danish Primary Care Physician [phone] [place] [facility] [place]/07[place]21 - 08/14/21 [facility] Attending Physician: Knee RDLeonila Allergies, Adverse Reactions, Alerts Substance Reaction Severity [...] 11/08/20 12:29:00 EDT, Route to Pharmacy Electronically, [facility], Partial fill upon patient [...] Refills, Maintenance, 11/08/20 12:30:00 EDT, EC Capsule, [facility], Partial fill upon patient request if the prescription is for a schedule II opioid drug., 175.2, cm, ... Start Date: 11/08/20 Status: Ordered ondansetron 4 mg oral tablet, disintegrating 1 tablet = 4 mg, By Mouth, Every 8 hours, PRN as needed for nausea/vomiting, # 20 tablet, 0 Refills, Acute 11/14/21 14:19:00 EDT, 11/14/20 14:19:00 EDT, DIS Tablet, [facility]/pharmacy #[id number], Partial fill upon patient request if [...] 11/08/20 12:30:00 EDT, Route to Pharmacy Electronically, [facility],Partial fill upon patient request if the [...]
--- OUTSIDE RECORDS SUMMARY | 2022-06-24 06:21 | XMS_ITS | Continuity of Care Document ---
Author Name Unknown Organization [facility] Address [address] [place] [address] [address], [address] [place] [address]- Care Team Providers Care Scratcher Tender Name Role Phone Danish Ashby MD Primary Care Physician [phone] Encounter [facility] [place] Date(s): 07/10/21 - 08/09/21 [facility] [address] [place] [address] Drive, [address] [place], [place] [address] Allergies, Adverse Reactions, Alerts Substance Reaction Severity [...] 11/08/20 12:29:00 EDT, Route to Pharmacy Electronically, [facility], Partial fill upon patient [...] Refills, Maintenance, 11/08/20 12:30:00 EDT, EC Capsule, [facility], Partial fill upon patient request if the prescription is for a schedule II opioid drug., 175.2, cm, ... Start Date: 11/08/20 Status: Ordered ondansetron 4 mg oral tablet, disintegrating 1 tablet = 4 mg, By Mouth, Every 8 hours, PRN as needed for nausea/vomiting, # 20 tablet, 0 Refills, Acute 11/14/21 14:19:00 EDT, 11/14/20 14:19:00 EDT, DIS Tablet, [facility]/pharmacy #[id number], Partial fill upon patient request if [...] 11/08/20 12:30:00 EDT, Route to Pharmacy Electronically, [facility],Partial fill upon patient request if the [...]
--- OUTSIDE RECORDS SUMMARY | 2022-06-24 06:21 | XMS_ITS | Continuity of Care Document ---
Author Name Unknown Organization [facility] ter Address [address] [place] [address]- Care Team Providers Care Surveying Crew Stake Runner Name Role Phone Danish Ashby MD Primary Care Physician [phone] [id number] Date(s): 11/07/20 - 11/08/[address] [address]- Discharge Disposition: A-D/C Home Attending Physician: Alli Khan MD Admitting Physician: Alli Khan MD Referring Physician: Alli Khan MD Allergies, Adverse Reactions, Alerts Substance Reaction [...] 11/08/20 12:29:00 EDT, Route to Pharmacy Electronically, [facility], Partial fill upon patient request if the prescr... Start Date: 11/08/20 Status: Ordered Flomax 0.4 mg oral capsule 0.4 mg, 1, capsule, By Mouth, Daily in AM, # 30 capsule, Refills 0, Maintenance, 10/02/18 7:27:36 EDT Start Date: 10/02/18 Status: Ordered Lisinopril = 20 mg, By Mouth, Daily in AM, 0 Refills, Maintenance, 08/30/19 11:21:00 EDT Start Date: 08/30/19 Status: Ordered omeprazole 20 mg oral enteric coated capsule 1 capsule = 20 mg, By Mouth, 2 times a day, # 120 capsule, 4 Refills, Maintenance, 11/08/20 12:30:00 EDT, EC Capsule, [facility], Partial fill upon patient request if the prescription is for a schedule II opioid drug., 175.2, cm, ... Start Date: 11/08/20 Status: Ordered One-A-Day Essentials Multiple Vitamins oral [...] 11/08/20 12:30:00 EDT, Route to Pharmacy Electronically, [facility],Partial fill upon patient request if the prescripti... Start Date: 11/08/20 Status: Ordered oxyCODONE 5 mg oral tablet 5 mg, Tablet, By Mouth, Every 4 hours, PRN for Pain , Moderate, Routine, 11/07/20 13:31:00 EDT Start Date: 11/07/20 Stop Date: 11/14/20 Status: Ordered Toradol Inj 15 mg, Injection, IV Push Slowly, 11/08/20 13:00:00 EDT, Stop date 11/08/20 13:00:00 EDT Start Date: 11/08/20 Stop Date: 11/08/20 Status: Completed Tylenol 325 mg oral tablet 975 mg, 3, tablet, By Mouth, Every 6 hours, Refills 0, Maintenance, 11/08/20 12:29:00 EDT, Partial fill upon patient request if the prescription is for a schedule II opioid drug. Start Date: 11/08/20 Status: Ordered Tylenol 325 mg oral tablet 975 mg, Tablet, By Mouth, 11/08/20 8:00:00 EDT Start Date: 11/08/20 Stop Date: 11/08/20 Status: Completed Problem List Condition Effective Dates Status Health Status Inform ant HTN (hypertension)(Confirmed) Active Enlarged prostate(Confirmed) Active Morbid obesity(Confirmed) Active PIYUSH (obstructive sleep apnea)(Confirmed) Active Procedures Procedure Date Related Diagnosis Body Site Status Laparoscopy, surgical, gastr ic restrictive procedure; longitudinal gastrectomy (ie, sleeve gastrectomy) Completed Vital Signs Most recent to oldest [Reference Range]: 1 2 3 4 Height 175.2 cm (11/07/20 3:48 PM) 175.2 cm (11/07/20 10:06 AM) 175.2 cm (10/31/20 11:38 AM) Weight 127.2 kg (11/07/20 3:48 PM) 130.4 kg (11/07/20 10:06 AM) 130.4 kg (10/31/20 11:38 AM) Oxygen Saturation [94-100 %] 100 % (11/08/20 11:00 AM) 98 % (11/08/20 8:00 AM) 96 % (11/08/20 3:00 AM) Pulse Rate [55-90 bpm] 54 bpm *L* (11/08/20 11:00 AM) 48 bpm *L* (11/08/20 8:00 AM) 58 bpm (11/08/20 3:00 AM) Body Mass Index [18.5-24.99] 41.44 *>HHI* (11/07/20 3:48 PM) 42.48 *>HHI* (11/07/20 10:06 AM) 42.48 *>HHI* (10/31/20 11:38 AM) Blood Pressure [90-138/55-84 mm Hg] 127/65mm Hg (11/08/20 11:00 AM) 142/56mm Hg *H* (11/08/20 8:00 AM) 130/62mm Hg (11/08/20 3:00 AM) Respiratory Rate [16-30 br/min] 20 br/min (11/08/20 3:07 PM) 20 br/min (11/08/20 11:53 AM) 20 br/min (11/08/20 11:24 AM) 20 br/min (11/08/20 11:24 AM) Temperature [96.8-100.4 DegF] 98.5 DegF (11/08/20 11:00 AM) 98.0 DegF (11/08/20 8:00 AM) 98.3 DegF (11/08/20 3:00 AM) Liters per Minute 2 L/min (11/07/20 3:48 PM) 2 L/min (11/07/20 1:30 PM) 2 L/min (11/07/20 1:15 PM) Mode of Delivery (Oxygen) Room air (11/08/20 11:00 AM) Room air (11/08/20 8:00 AM) Room air (11/08/20 3:00 AM) Blood pressure sites Arm, left (11/08/20 11:00 AM) Arm, left (11/08/20 8:00 AM) Arm, left (11/08/20 3:00 AM) Temperature Route Oral (11/08/20 11:00 AM) Oral (11/08/20 8:00 AM) Oral (11/08/20 3:00 AM) Dry Weight 127.2 kg (11/07/20 3:48 PM) 127.2 kg (11/07/20 10:06 AM) 130.4 kg (10/31/20 11:38 AM) Weight Obtained Via Patient/family stated (10/31/20 11:38 AM) Dry Weight Obtained Via Standing scale (11/07/20 10:06 AM) Patient/family stated (10/31/20 11:38 AM) Social History Social History Type Response Smoking Status Former smoker, quit more than 30 days ago; Other: quit smoking in 1998; entered on: 04/12/20 Sex
--- OUTSIDE RECORDS SUMMARY | 2022-06-24 06:21 | XMS_ITS | Continuity of Care Document ---
Author Name Unknown Organization [facility] ter Address [address] [place] [address]- Care Team Providers Care Typewriter Repairer Name Role Phone Danish Ashby MD Primary Care Physician [phone] [place] [facility] [place] [id number] Date(s): 08/17/21 - 08/17/[address] [address]- Discharge Disposition: A-D/C Home Attending Physician: lEoy Dickerson MD Admitting Physician: Eloy Dickerson MD Referring Physician: Eloy Dickerson MD Allergies, Adverse Reactions, Alerts Substance Reaction Severity Status Adhesive Bandage 1 Active 1pt allergic to the glue of some adhesive bandages Immunizations Given and Recorded Vaccine Date Status Refusal Reason influenza virus vaccine, inactivated 11/08/20 Give n Medications acetaminophen-oxyCODONE 325 mg-5 mg oral tablet 2, tablet, By Mouth, Every 8 hours, PRN, May take 1-2 tablets by mouth every 8 hours PRN pain. for 7 days, # 56 tablet, Refills 0, Tot. Refills 0, Acute, Pain , Moderate, 08/24/21 16:20:00 EDT, 08/17/21 16:20:00 EDT, Route to Pharmacy Electronically,... Start Date: 08/17/21 Stop Date: 08/24/21 Status: Ordered Flomax 0.4 mg oral capsule [...] opioid drug. Start Date: 03/29/20 Status: Ordered OxyCODONE IR Tablet 10 mg, Tablet, By Mouth, Every 4 hours, in PACU ONLY, if patient can tolerate PO, PRN for Pain , Severe, Routine, 08/17/21 10:57:00 EDT, Stop date 08/17/21 23:30:00 EDT Start Date: 08/17/21 Stop Date: 08/17/21 Status: Completed tiZANidine 2 mg oral tablet 2 mg, 1, tablet, By Mouth, Every 8 hours, # 42 tablet, Refills 0, Tot. Refills 0, Maintenance, 08/17/21 16:19:00 EDT, Route to Pharmacy Electronically, [facility], Partial fill upon patient [...] II(Confirmed) Active PIYUSH (obstructive sleep apnea)(Confirmed) Active Results Radiology Reports * Exam Date Time Procedure Performing Provider Status 08/17/21 10:16 AM C-Arm > 1 Hour Nataliia Bellamy; Auth (Verified) Notes: (C-Arm > 1 Hour) Reason For Exam: back pain laminectomies RESULT: C-Arm > 1 Hour Spine Single View, C-Arm > 1 Hour INDICATION: Reason: back pain laminectomies COMPARISONS: None TECHNIQUE: Fluoroscopy support was provided. There was no radiologist in attendance. FLUOROSCOPY TIME: 16.1 seconds EXPOSURE: 13.20 mGy TECHNOLOGIST TIME: 2 hours 0 minutes FINDINGS: 7 images were submitted. Please refer to operative note for full details. IMPRESSION: See above. WSN: [id number] Ordering Physician: Eloy Dickerson Dictated By: Chandra Escamilla MD Dictated Date/Time: 08/17/21 10:18 a Reviewed By: Chandra Escamilla MD Signed By: Chandra Escamilla MD Signed Date/Time: 08/17/21 10:18 am Transcribed By: YESSICA Transcribed Date/Time: 08/17/21 10:18 am * Exam Date Time Procedure Performing Provider Status 08/17/21 10:16 AM Spine Single View Nataliia Bellamy [facility] (Verified) Notes: (Spine Single View) Reason For Exam: back pain laminectomies RESULT: Spine Single View Spine Single View, C-Arm > 1 Hour INDICATION: Reason: back pain laminectomies COMPARISONS: None TECHNIQUE: Fluoroscopy support was provided. There was no radiologist in attendance. FLUOROSCOPY TIME: 16.1 seconds EXPOSURE: 13.20 mGy TECHNOLOGIST TIME: 2 hours 0 minutes FINDINGS: 7 images were submitted. Please refer to operative note for full details. IMPRESSION: See above. WSN: [id number] Ordering Physician: Eloy Dickerson Dictated By: Chandra Escamilla MD Dictated Date/Time: 08/17/21 10:18 a Reviewed By: Chandra Escamilla MD Signed By: Chandra Escamilla MD Signed Date/Time: 08/17/21 10:18 am Transcribed By: YESSICA Transcribed Date/Time: 08/17/21 10:18 am Vital Signs Most recent to oldest [Reference Range]: 1 2 3 Height 175.2 cm (08/17/21 6:47 AM) 175.2 cm (08/15/21 11:10 AM) Weight 111.3 kg (08/17/21 6:47 AM) 111.3 kg (08/15/21 11:10 AM) Oxygen Saturation [94-100 %] 95 % (08/17/21 12:30 PM) 98 % (08/17/21 12:15 PM) 94 % (08/17/21 12:00 PM) Pulse Rate [55-90 bpm] 56 bpm (08/17/21 6:47 AM) Body Mass Index [18.5-24.99] 36.26 *>HHI* (08/17/21 6:47 AM) 36.26 *>HHI* (08/15/21 11:10 AM) Blood Pressure [90-138/55-84 mm Hg] 116/75mm Hg (08/17/21 12:30 PM) 156/55mm Hg *H* (08/17/21 12:15 PM) 156/55mm Hg *H* (08/17/21 12:00 PM) Respiratory Rate [16-30 br/min] 18 br/min (08/17/21 2:42 PM) 18 br/min (08/17/21 12:30 PM) 17 br/min (08/17/21 12:15 PM) Temperature [96.8-100.4 DegF] 97.5 DegF (08/17/21 10:45 AM) 96.8 DegF (08/17/21 10:15 AM) 98 DegF (08/17/21 6:47 AM) Liters per Minute 2 L/min (08/17/21 11:00 AM) 3 L/min (08/17/21 10:30 AM) 6 L/min (08/17/21 10:15 AM) Mode of Delivery (Oxygen) Room air (08/17/21 5:15 PM) Room air (08/17/21 4:30 PM) Room air (08/17/21 3:30 PM) Blood pressure sites Arm, left (08/17/21 12:30 PM) Arm, left (08/17/21 10:15 AM) Arm, right (08/17/21 6:47 AM) Temperature Route Temporal (08/17/21 10:45 AM) Temporal (08/17/21 10:15 AM) Temporal (08/17/21 6:47 AM) Dry Weight 111.3 kg (08/15/21 11:10 AM) Weight Obtained Via Patient/family state d (08/15/21 11:10 AM) Dry Weight Obtained Via Patient/family s tated (08/15/21 11:10 AM) Social History Social History Type Response Smoking Status Former smoker, quit more than 30 days ago; Other: quit smoking in 1998; entered on: 04/12/20 Sex
--- OUTSIDE RECORDS SUMMARY | 2022-06-24 06:21 | XMS_ITS | Continuity of Care Document ---
Author Name Unknown Organization [facility] Address [address] [facility], [address] Floor, [address] [place] [address]- Care Team Providers Care Toolroom Clerk Name Role Phone Danish Ashby MD Primary Care Physician [phone] [id number] Date(s[facility] 08/24/20 - 09/23/20 [facility] [address], [address], [address] [place] [address]- Allergies, Adverse Reactions, Alerts Substance Reaction Severity [...]
--- OUTSIDE RECORDS SUMMARY | 2022-06-24 06:21 | XMS_ITS | Continuity of Care Document ---
Author Name Unknown Organization [facility] Address [address] [place] [address] Dri [address] [place] [address]- Care Team Providers Care Cartridge Loading Operator Name Role Phone Danish Ashby MD Primary Care Physician [phone] [id number] Date(s): 08/15/20 - 08/22/[address] [place] [address]- Attending Physician: Leonila Holden RD Allergies, Adverse [...]
--- OUTSIDE RECORDS SUMMARY | 2022-06-24 06:21 | XMS_ITS | Continuity of Care Document ---
Author Name Unknown Organization [facility] Address [address] [place] [address] Dri [address] [place] [address]- Care Team Providers Care Dinkey Motor Operator Name Role Phone Danish Ashby MD Primary Care Physician [phone] [id number] Date[facility]s): 04/20/20 - 04/27/[address] [place] [address]- Attending Physician: Leonila Holden RD Referring Physician: Danish Ashby MD Allergies, Adverse [...]
--- OUTSIDE RECORDS SUMMARY | 2022-06-24 06:22 | XMS_ITS | Continuity of Care Document ---
Author Name Unknown Organization [facility] Address [address] [place] [address], [address] [place] [address]- Care Team Providers Care Pot Puller Name Role Phone Danish Ashby MD Primary Care Physician [phone] [place] [facility] [place] [id number] Date(s): 10/08/21 - 10/15/21 [facility] [address] [place] [address] Drive, [address] [place], [place] [address] Attending Physician: Eloy Dickerson MD Referring Physician: [...] 08/17/21 16:19:00 EDT, Route to Pharmacy Electronically, [facility], Partial fill upon patient [...] oldest [Reference Range]: 1 Height 175.2 cm (10/08/21 10:32 AM) Weight 111.3 kg (10/08/21 10:32 AM) Body Mass Index [18.5-24.99] 36.26 *>HHI* (10/08/21 10:32 AM) Social History Social History Type Response Smoking Status Former smoker, quit more than 30 days ago; Other: quit smoking in 1998; entered on: 04/12/20 Sex Care Team Personnel Name: Danish Ashby MD Address: [address] Danihs Ashby [place], [place] [address]
--- OUTSIDE RECORDS SUMMARY | 2022-06-24 06:22 | XMS_ITS | Continuity of Care Document ---
Author Name Unknown Organization [facility] Address [address] [place] [address]- Care Team Providers Care Division Commander Name Role Phone Danish Ashby MD Primary Care Physician [phone] Encounter [facility] Date(s): 01/05/21 - 02/04/[address] [address]- Allergies, Adverse Reactions, Alerts Substance Reaction Severity [...] 11/08/20 12:29:00 EDT, Route to Pharmacy Electronically, [facility], Partial fill upon patient [...] Refills, Maintenance, 11/08/20 12:30:00 EDT, EC Capsule, [facility], Partial fill upon patient request if the prescription is for a schedule II opioid drug., 175.2, cm, ... Start Date: 11/08/20 Status: Ordered ondansetron 4 mg oral tablet, disintegrating 1 tablet = 4 mg, By Mouth, Every 8 hours, PRN as needed for nausea/vomiting, # 20 tablet, 0 Refills, Acute 11/14/21 14:19:00 EDT, 11/14/20 14:19:00 EDT, DIS Tablet, [facility]/pharmacy #[id number], Partial fill upon patient request [...] 11/08/20 12:30:00 EDT, Route to Pharmacy Electronically, [facility] 3,Partial fill upon patient request if the [...]
--- OUTSIDE RECORDS SUMMARY | 2022-06-24 06:22 | XMS_ITS | Continuity of Care Document ---
Author Name Unknown Organization [facility] Address [address] [place] [address] [address] [place] [address]- Care Team Providers Care Downstairs Maid Name Role Phone Danish Ashby MD Primary Care Physician [phone] [id number] Date[facility] 05/29/22 - 06/05/22 [facility] [address] [place] [address]- Attending Physician: Regino Lyon MD Referring Physician: Danish Ashby MD Allergies, [...] 08/17/21 16:19:00 EDT, Route to Pharmacy Electronically, [facility], Partial fill upon patient [...] Reference Physician Member Role: PCP Address: Address: [address] [place] [address] Danish Ashby MD [place], [place] [address] Name: Rehan MOURA, Kaye Edward Position: [facility] PCO Associate Professional Member Role: Primary Care Nurse Name: Denise Cleary RN Position: [facility] SN RN Member Role: Primary Care Nurse Name: Corinna Scott RN Position: S RN Member Role: Primary Care Nurse Name: Trista Romo RN Position: S RN Member Role: Primary Care Nurse Name: Danette Garcia RN Position: [facility] RN Member Role: Primary Care Nurse Name: Rebecca Comer RN Position: [facility] RN Member Role: Primary Care Nurse Name: Tatyana Infante RN Position: S RN Member Role: Primary Care Nurse Name: Leonila Duke RN Position: S RN Member Role: Primary Care Nurse Care Team Related Persons Name: ROGELIOJUANTashi JANES Address: home [address] [place] [address]
--- OUTSIDE RECORDS SUMMARY | 2022-06-24 06:22 | XMS_ITS | Continuity of Care Document ---
Author Name Unknown Organization [facility] Address [address] [place] [address] [address] [place] [address]- Care Team Providers Care Vision Rehabilitation Therapist Name Role Phone Danish Ashby MD Primary Care Physician [phone] [id number] 11/28/21 - 12/05/21 [facility] [address] [place] [address]- Attending Physician: Sher Clifton Referring Physician: Danish [...] 08/17/21 16:19:00 EDT, Route to Pharmacy Electronically, [facility], Partial fill upon patient [...] on: 04/12/20 Sex Patient Care team information Personnel Name: Danish Ashby MD Address: Address: [address] [place] [address]
--- OUTSIDE RECORDS SUMMARY | 2022-06-24 06:22 | XMS_ITS | Continuity of Care Document ---
Author Name Unknown Organization [facility] Address Unknown Care Team Providers Care Cap Sewer Name Role Phone Symone CHOUDHARY, Danish Primary Care Physician [phone] En[facility] Date(s): 11/24/20 - 12/01/20 [facility] Attending Physician: Leonila Holden RD [...] 11/08/20 12:29:00 EDT, Route to Pharmacy Electronically, [facility], Partial fill upon patient [...] Refills, Maintenance, 11/08/20 12:30:00 EDT, EC Capsule, [facility], Partial fill upon patient request if the prescription is for a schedule II opioid drug., 175.2, cm, ... Start Date: 11/08/20 Status: Ordered ondansetron 4 mg oral tablet, disintegrating 1 tablet = 4 mg, By Mouth, Every 8 hours, PRN as needed for nausea/vomiting, # 20 tablet, 0 Refills, Acute 11/14/21 14:19:00 EDT, 11/14/20 14:19:00 EDT, DIS Tablet, [facility]/pharmacy #[id number], Partial fill upon patient request [...] 11/08/20 12:30:00 EDT, Route to Pharmacy Electronically, [facility] 3,Partial fill upon patient request if the [...] oldest [Reference Range]: 1 Height 175.2 cm (11/24/20 12:49 PM) Weight 119.8 kg (11/24/20 12:49 PM) Body Mass Index [18.5-24.99] 39.03 *>HHI* (11/24/20 12:49 PM) Social History Social History Type Response Smoking Status Former smoker, quit more than 30 days ago; Other: quit smoking in 1998; entered on: 04/12/20 Sex
--- OUTSIDE RECORDS SUMMARY | 2022-06-24 06:22 | XMS_ITS | Continuity of Care Document ---
Author Name Unknown Organization [facility] Address [address] [place] [address], [address] [place] [address]- Care Team Providers Care Radio Board Operator Announcer Name Role Phone Danish Ashby MD Primary Care Physician [phone] En[place] [facility] [place] Date(s): 11/12/21 - 11/19/21 [facility] [address] [place] [address] Drive, [address] [place], [place] [address] Attending Physician: Eloy Dickerson MD Referring Physician: [...] 08/17/21 16:19:00 EDT, Route to Pharmacy Electronically, [facility], Partial fill upon patient [...] Active PIYUSH (obstructive sleep apnea) Confirmed Active Vital Signs Most recent to oldest [Reference Range]: 1 Height 175.2 cm (11/12/21 1:51 PM) Weight 111.3 kg (11/12/21 1:51 PM) Body Mass Index [18.5-24.99 kg/m2] 36.26 kg/m2 *>HHI* (11/12/21 1:51 PM) Social History Social History Type Response Smoking Status Former smoker, quit more than 30 days ago; Other: quit smoking in 1998; entered on: 04/12/20 Sex Patient Care team information Personnel Name: Danish Ashby MD Address: Address: [address] [place] [address] Drive Danish Ashby [place], [place] [address]
--- OUTSIDE RECORDS SUMMARY | 2022-06-24 06:22 | XMS_ITS | Continuity of Care Document ---
Author Name Unknown Organization [facility] Address Unknown Care Team Providers Care Yarn Dumper Name Role Phone Danish Ashby MD Primary Care Physician [phone] [place] [facility] Date(s): 11/27/20 - 12/04/20 [facility] Attending Physician: Alli Khan MD Referring Physician: [...] 11/08/20 12:29:00 EDT, Route to Pharmacy Electronically, [facility], Partial fill upon patient request [...] Refills, Maintenance, 11/08/20 12:30:00 EDT, EC Capsule, [facility], Partial fill upon patient request if the prescription is for a schedule II opioid drug., 175.2, cm, 2... Start Date: 11/08/20 Status: Ordered ondansetron 4 mg oral tablet, disintegrating 1 tablet = 4 mg, By Mouth, Every 8 hours, PRN as needed for nausea/vomiting, # 20 tablet, 0 Refills, Acute 11/14/21 14:19:00 EDT, 11/14/20 14:19:00 EDT, DIS Tablet, [facility]/pharmacy #[id number], Partial fill upon [...] 11/08/20 12:30:00 EDT, Route to Pharmacy Electronically, [facility] 3,Partial fill upon patient request if the [...] oldest [Reference Range]: 1 Height 175.2 cm (11/27/20 11:02 AM) Weight 118.3 kg (11/27/20 11:02 AM) Pulse Rate [55-90 bpm] 60 bpm (11/27/20 11:02 AM) Body Mass Index [18.5-24.99] 38.54 *>HHI* (11/27/20 11:02 AM) Blood Pressure [90-138/55-84 mm Hg] 123/ 73mm Hg (11/27/20 11:02 AM) Respiratory Rate [16-30 br/min] 17 br/mi n (11/27/20 11:02 AM) Temperature [96.8-100.4 DegF] 97.9 DegF (11/27/20 11:02 AM) Temperature Route Temporal (11/27/20 11:02 AM) Social History Social History Type Response Smoking Status Former smoker, quit more than 30 days ago; Other: quit smoking in 1998; entered on: 04/12/20 Sex
--- OUTSIDE RECORDS SUMMARY | 2022-06-24 06:22 | XMS_ITS | Continuity of Care Document ---
Author Name Unknown Organization [facility] Address Unknown Care Team Providers Care Field Representatives Director Name Role Phone Danish Ashby MD Primary Care Physician [phone] [place] [facility] [place](s): 10/23/20 - 10/30/20 [facility] Attending Physician: Alli Khan MD [...] oldest [Reference Range]: 1 Height 171 cm (10/23/20 10:54 AM) Weight 131.4 kg (10/23/20 10:54 AM) Pulse Rate [55-90 bpm] 62 bpm (10/23/20 10:54 AM) Body Mass Index [18.5-24.99] 44.94 *>HHI* (10/23/20 10:54 AM) Blood Pressure [90-138/55-84 mm Hg] 153/ 80mm Hg *H* (10/23/20 10:54 AM) Respiratory Rate [16-30 br/min] 16 br/mi n (10/23/20 10:54 AM) Temperature [96.8-100.4 DegF] 96.2 DegF *L* (10/23/20 10:54 AM) Blood pressure sites Arm, right (10/23/20 10:54 AM) Temperature Route Temporal (10/23/20 10:54 AM) Weight Obtained Via Standing scale (10/23/20 10:54 AM) Social History Social History Type Response Smoking Status Former smoker, quit more than 30 days ago; Other: quit smoking in 1998; entered on: 04/12/20 Sex
--- OUTSIDE RECORDS SUMMARY | 2022-06-24 06:22 | XMS_ITS | Continuity of Care Document ---
Author Name Unknown Organization [facility] Address [address] [place] [address] [address] [place] [address]- Care Team Providers Care Group Fitness Department Head Name Role Phone Danish Ashby MD Primary Care Physician [phone] [id number] Date(s): 07/12/20 - 07/19/[address] [place] [address]- Attending Physician: Leonila Holden RD Allergies, Adverse [...] recent to oldest [Reference Range]: 1 2 Height 171 cm (07/12/20 3:10 PM) 171 cm (07/12/20 3:09 PM) Weight 142 kg (07/12/20 3:10 PM) 313 kg (07/12/20 3:09 PM) Body Mass Index [18.5-24.99] 48.56 *>HHI* (07/12/20 3:10 PM) 107.04 *>HHI* (07/12/20 3:09 PM) Social History Social History Type Response Smoking Status Former smoker, quit more than 30 days ago; Other: quit smoking in 1998; entered on: 04/12/20 Sex
--- OUTSIDE RECORDS SUMMARY | 2022-06-24 06:22 | XMS_ITS | Continuity of Care Document ---
Author Name Unknown Organization [facility] Address [address] [place] [address] [address] [place] [address]- Care Team Providers Care Professor Of Radiology Name Role Phone Danish Ashby MD Primary Care Physician [phone] [id number] Date(s): 02/12/22 - 02/19/22 [facility] [address] [place] [address]- Attending Physician: Leonila Holden RD Referring Physician: [...] 08/17/21 16:19:00 EDT, Route to Pharmacy Electronically, [facility], Partial fill upon [...] Reference Physician Member Role: PCP Address: Address: [address] [place] [address] Danish Ashby [place], [place] [address] Name: Rehan MOURA, Kaye Edward Position: [facility] PCO Associate Professional Member Role: Primary Care Nurse Name: Denise Cleary RN Position: [facility] RN Member Role: Primary Care Nurse Name: Corinna Scott RN Position: S RN Member Role: Primary Care Nurse Name: Trista Romo RN Position: S RN Member Role: Primary Care Nurse Name: Danette Garcia RN Position: [facility] RN Member Role: Primary Care Nurse Name: Rebecca Comer RN Position: [facility] RN Member Role: Primary Care Nurse Name: Tatyana Infante RN Position: S RN Member Role: Primary Care Nurse Name: Leonila Duke RN Position: S RN Member Role: Primary Care Nurse Care Team Related Persons Name: ROGELIOJUANTashi JANES Address: home [address] [place] [address]
--- OUTSIDE RECORDS SUMMARY | 2022-06-24 06:22 | XMS_ITS | Continuity of Care Document ---
Author Name Unknown Organization [facility] Address Unknown Care Team Providers Care Track Walker Name Role Phone Danish Ashby MD Primary Care Physician [phone] [place] [facility] [place] 12/20/20 [facility] Attending Physician: Alli Khan MD [...] 11/08/20 12:29:00 EDT, Route to Pharmacy Electronically, [facility], Partial fill upon patient request [...] Refills, Maintenance, 11/08/20 12:30:00 EDT, EC Capsule, [facility], Partial fill upon patient request if the prescription is for a schedule II opioid drug., 175.2, cm, 2... Start Date: 11/08/20 Status: Ordered ondansetron 4 mg oral tablet, disintegrating 1 tablet = 4 mg, By Mouth, Every 8 hours, PRN as needed for nausea/vomiting, # 20 tablet, 0 Refills, Acute 11/14/21 14:19:00 EDT, 11/14/20 14:19:00 EDT, DIS Tablet, [facility]/pharmacy #[id number], Partial fill upon patient request if [...] 11/08/20 12:30:00 EDT, Route to Pharmacy Electronically, [facility] 3,Partial fill upon patient request [...] obesity(Confirmed) Active PIYUSH (obstructive sleep apnea)(Confirmed) Active Social History Social History Type Response Smoking Status Former smoker, quit more than 30 days ago; Other: quit smoking in 1998; entered on: 04/12/20 Sex
--- OUTSIDE RECORDS SUMMARY | 2022-06-24 06:22 | XMS_ITS | Continuity of Care Document ---
Author Name Unknown Organization [facility] Address [address] [place] [address], [address] [place] [address]- Care Team Providers Care Commercial Litigation Attorney Name Role Phone Danish Ashby MD Primary Care Physician [phone] [id number] Date(s): 11/15/21 - 02/06/22 [facility] [address] [place] [address] Drive, [address] [place], [place] [address] Attending Physician: Eloy Dickerson MD Referring [...] 08/17/21 16:19:00 EDT, Route to Pharmacy Electronically, [facility], Partial fill upon patient [...] Reference Physician Member Role: PCP Address: Address: [address] [place] [address] Danish Ashby MD [place], [place] [address] Name: Rehan MOURA, Kaye Edward Position: [facility]O Associate Professional Member Role: Primary Care Nurse Name: Denise Cleary RN Position: [facility] RN Member Role: Primary Care Nurse Name: Corinna Scott RN Position: S RN Member Role: Primary Care Nurse Name: Trista Romo RN Position: S RN Member Role: Primary Care Nurse Name: Danette Garcia RN Position: [facility] RN Member Role: Primary Care Nurse Name: Rebecca Comer RN Position: [facility] RN Member Role: Primary Care Nurse Name: Tatyana Infante RN Position: S RN Member Role: Primary Care Nurse Name: Leonila Duke RN Position: S RN Member Role: Primary Care Nurse Care Team Related Persons Name: RTENTPOPPYCHITOTashi JANES Address: home [address] [place] [address]
--- OUTSIDE RECORDS SUMMARY | 2022-06-24 06:22 | XMS_ITS | Continuity of Care Document ---
Author Name Unknown Organization [facility] Address [address] [place] [address] [address] [place] [address]- Care Team Providers Care Ram Car Operator Name Role Phone Danish Ashby MD Primary Care Physician [phone] [place] [facility] Date(s): 04/20/20 - 05/20/[address] [place] [address]- Attending Physician: Fern Evangelista Admitting Physician: Fern Evangelista Referring Physician: Fern Evangelista Allergies, Adverse Reactions, Alerts Substance Reaction Severity [...]
--- OUTSIDE RECORDS SUMMARY | 2022-06-24 06:22 | XMS_ITS | Continuity of Care Document ---
Author Name Unknown Organization [facility] Address Unknown Care Team Providers Care Tennis Desk Team Member Name Role Phone Symone CHOUDHARY, Danish Primary Care Physician [phone] [place] [facility] [place](s): 09/07/20 - 10/07/20 [facility] Allergies, Adverse Reactions, Alerts Substance Reaction Severity [...]
--- OUTSIDE RECORDS SUMMARY | 2022-06-24 06:22 | XMS_ITS | Continuity of Care Document ---
Author Name Unknown Organization [facility] Address Unknown Care Team Providers Care Mfg Assoc Name Role Phone Danish Ashby MD Primary Care Physician [phone] En[place] [facility] [place] Date(s): 05/29/21 - 06/05/21 [facility] Encounter Diagnosis Obesity (BMI 30-39.9)(Discharge Diagnosis) - 05/29/21 History of sleeve gastrectomy(Discharge Diagnosis) - 05/29/21 Attending Physician: Sher Clifton Referring Physician: Danish [...] 11/08/20 12:29:00 EDT, Route to Pharmacy Electronically, [facility], Partial fill upon patient [...] Refills, Maintenance, 11/08/20 12:30:00 EDT, EC Capsule, [facility], Partial fill upon patient request if the prescription is for a schedule II opioid drug., 175.2, cm, ... Start Date: 11/08/20 Status: Ordered ondansetron 4 mg oral tablet, disintegrating 1 tablet = 4 mg, By Mouth, Every 8 hours, PRN as needed for nausea/vomiting, # 20 tablet, 0 Refills, Acute 11/14/21 14:19:00 EDT, 11/14/20 14:19:00 EDT, DIS Tablet, [facility]/pharmacy #[id number], Partial fill upon patient request [...] 11/08/20 12:30:00 EDT, Route to Pharmacy Electronically, [facility],Partial fill upon patient request if the [...] Service Informant Obesity (BMI 30-39.9) Discharge Diagnosis 05/29/21 History of sleeve gastrectomy Discharge Diagnosis 05/29/21 Social History Social History Type Response Smoking Status Former smoker, quit more than 30 days ago; Other: quit smoking in 1998; entered on: 04/12/20 Sex
--- OUTSIDE RECORDS SUMMARY | 2022-06-24 06:22 | XMS_ITS | Continuity of Care Document ---
Author Name Unknown Organization [facility] Address Unknown Care Team Providers Care Billet Inspector Name Role Phone Symone CHOUDHARY, Danish Primary Care Physician [phone] En[place] [facility] [place] Date(s): 01/30/21 - 02/06/21 [facility] Attending Physician: Knee RDLeonila [...] 12:29:00 EDT, Route to Pharmacy Electronically, [facility] [...] Maintenance, 11/08/20 12:30:00 EDT, EC Capsule, [facility], Partial fill upon patient request if the prescription is for a schedule II opioid drug., 175.2, cm, 2... Start Date: 11/08/20 Status: Ordered ondansetron 4 mg oral tablet, disintegrating 1 tablet = 4 mg, By Mouth, Every 8 hours, PRN as needed for nausea/vomiting, # 20 tablet, 0 Refills, Acute 11/14/21 14:19:00 EDT, 11/14/20 14:19:00 EDT, DIS Tablet, [facility]/pharmacy #[id number], Partial fill upon patient request [...] 12:30:00 EDT, Route to Pharmacy Electronically, [facility] 3,Partial fill upon [...]
--- OUTSIDE RECORDS SUMMARY | 2022-06-24 06:22 | XMS_ITS | Continuity of Care Document ---
Author Name Unknown Organization [facility] Address [address] [place] [address]- Care Team Providers Care Marionette Performer Name Role Phone Danish Ashby MD Primary Care Physician [phone] [place] [facility] [place](s): 10/25/20 - 11/24/20 [facility] [address] [place], [place] [address] Attending Physician: Fern Evangelista Admitting Physician: Fern [...] EC Capsule, [facility], Partial fill upon patient request if the prescription is for a schedule II opioid drug., 175.2, cm, ... Start Date: 11/08/20 Status: Ordered ondansetron 4 mg oral tablet, disintegrating 1 tablet = 4 mg, By Mouth, Every 8 hours, PRN as needed for nausea/vomiting, # 20 tablet, 0 Refills, Acute 11/14/21 14:19:00 EDT, 11/14/20 14:19:00 EDT, DIS Tablet, [facility]/pharmacy #[id number], Partial fill upon patient request if [...] Pharmacy Electronically, [facility] 3,Partial fill upon patient request [...]
--- OUTSIDE RECORDS SUMMARY | 2022-06-24 06:22 | XMS_ITS | Continuity of Care Document ---
Author Name Unknown Organization [facility] Address Unknown Care Team Providers Care Wholesale Buyer Name Role Phone Symone CHOUDHARY, Danish Primary Care Physician [phone] Encounter [facility] [place] Date(s): 12/26/20 - 01/25/21 [facility] Allergies, Adverse Reactions, Alerts Substance Reaction Severity [...] 11/08/20 12:29:00 EDT, Route to Pharmacy Electronically, [facility], Partial fill upon patient [...] Refills, Maintenance, 11/08/20 12:30:00 EDT, EC Capsule, [facility], Partial fill upon patient request if the prescription is for a schedule II opioid drug., 175.2, cm, ... Start Date: 11/08/20 Status: Ordered ondansetron 4 mg oral tablet, disintegrating 1 tablet = 4 mg, By Mouth, Every 8 hours, PRN as needed for nausea/vomiting, # 20 tablet, 0 Refills, Acute 11/14/21 14:19:00 EDT, 11/14/20 14:19:00 EDT, DIS Tablet, [facility]/pharmacy #[id number], Partial fill upon patient [...] 11/08/20 12:30:00 EDT, Route to Pharmacy Electronically, [facility],Partial fill upon patient request if [...]
--- OUTSIDE RECORDS SUMMARY | 2022-06-24 06:22 | XMS_ITS | Continuity of Care Document ---
Author Name Unknown Organization [facility] Address Unknown Care Team Providers Care Client Retention Specialist Name Role Phone Danish Ashby MD Primary Care Physician [phone] Encounter [facility] [place] [place] Date(s): 11/14/20 - 11/21/20 [facility] Attending Physician: Alli Khan MD Referring Physician: aDnish Ashby MD Allergies, Adverse Reactions, Alerts Substance [...] 11/08/20 12:29:00 EDT, Route to Pharmacy Electronically, [facility], Partial fill upon patient [...] Refills, Maintenance, 11/08/20 12:30:00 EDT, EC Capsule, [facility], Partial fill upon patient request if the prescription is for a schedule II opioid drug., 175.2, cm, ... Start Date: 11/08/20 Status: Ordered ondansetron 4 mg oral tablet, disintegrating 1 tablet = 4 mg, By Mouth, Every 8 hours, PRN as needed for nausea/vomiting, # 20 tablet, 0 Refills, Acute 11/14/21 14:19:00 EDT, 11/14/20 14:19:00 EDT, DIS Tablet, [facility]/pharmacy #[id number], Partial fill upon patient request [...] 11/08/20 12:30:00 EDT, Route to Pharmacy Electronically, [facility],Partial fill upon patient request if [...] oldest [Reference Range]: 1 Height 175.2 cm (11/14/20 2:07 PM) Weight 123.5 kg (11/14/20 2:07 PM) Pulse Rate [55-90 bpm] 73 bpm (11/14/20 2:07 PM) Body Mass Index [18.5-24.99] 40.23 *>HHI* (11/14/20 2:07 PM) Blood Pressure [90-138/55-84 mm Hg] 147/ 78mm Hg *H* (11/14/20 2:07 PM) Respiratory Rate [16-30 br/min] 16 br/mi n (11/14/20 2:07 PM) Temperature [96.8-100.4 DegF] 97.6 DegF (11/14/20 2:07 PM) Blood pressure sites Arm, left (11/14/20 2:07 PM) Temperature Route Temporal (11/14/20 2:07 PM) Weight Obtained Via Standing scale (11/14/20 2:07 PM) Social History Social History Type Response Smoking Status Former smoker, quit more than 30 days ago; Other: quit smoking in 1998; entered on: 04/12/20 Sex
[2022-06-24] MEDS: methocarbamoL 750 MG TABLET PO (06:42)
[2022-06-24] MEDS: Gabapentin 300 MG CAPSULE PO (06:43)
[2022-06-24] MEDS: Lactated Ringers 1,000 ML 100 ML IVCONT (06:55)
[2022-06-24] MEDS: ceFAZolin Sodium/Dextrose,Iso 2 GM/50 ML PIGGYBACK IV ×3 (07:05→19:38)
--- NOTE | 2022-06-24 07:19 | PC.NURSE ---
verbal clearance from dr gordon obtained about 4pm 06/[address] King office. Sujit Quiñones also included in verbal clearance via text. no written clearance obtained but ok to proceed with verbal clearance.
--- NOTE | 2022-06-24 08:25 | PHA.MEDREC ---
Pharmacy Consult ? Medication Reconciliation Pharmacy has completed the medication reconciliation. Pharmacy has reviewed med rec done by nursing
[2022-06-24] MEDS: Acetaminophen 1,000 MG/100 ML PIGGYBACK 400 MG IV ×3 (09:35→21:41)
--- NOTE | 2022-06-24 10:09 | W.PM.OPN ---
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 I have explained the nature, purpose and benefits of the operation. I have discussed the risks and benefit of the operation including possible complications or adverse events with patient/family. Alternative(s) were discussed with the patient with their relative benefits and risks as well as the consequences of not accepting the operation were included in obtaining consent. Surgeon: WILNER LEMON MD, PHD Procedure Assisted By: Irving Mendieta Description of Procedure: [] The patient was offered an oblique lumbar lateral interbody fusion followed by a posterior lateral instrumented fusion[]. The procedure and complications were explained and he was consented. The patient was brought to the operating room and endotracheally intubated. The patient was put in a prone position on the Blayne spine table. 2C arms were installed for fluoroscopy. Prepping and draping was done followed by timeout. The landmarks, including spinal processes, transverse processes, disc space, endplates and pedicles are identified and marked. The following steps are taken for the L2-3 level: Cage size 10 mm high and 33 mm long titanium . A small incision was made superior to the mid iliac crest and then using biplanar fluoroscopy visualization, under electrophysiological monitoring and stimulation, we introduced an electrophysiological probe through the retroperitoneal space into the desired disc anterior to the transverse process and then passed it into the disc space after finding a silent window. the monitoring values were above 4.5 milliampere. The sleeve was retained and the probe was removed, then the K wire was passed sequentially into the disc space. A dilating tube was then passed along the same route. Following this, a working channel was manually held in position while a series of disc cleaning tools were passed through the channel to remove the affected disc under clear and direct biplanar fluoroscopic visualization, decompress the nerve roots and equal corticated vertebral endplates at this segment. Arthrodesis of the intervertebral space for an anterior retroperitoneal exposure and application of intervertebral biomechanical device was then accomplished by using the working channel that had been placed into the retroperitoneal space anterior to the transverse process. After adequate decompression and preparation of the endplates, we then put allograft anterior into the disc space followed by a titanium interbody spacer, which is packed tightly with allograft bone for stabilization and arthrodesis of the anterior vertebral space and inserted the cage into the midportion of the intervertebral disc. This again was done on the biplanar fluoroscopic visualization. All bone was confined to the borders of the disc space. The following steps are then taken for the L2-3 level: Bilateral L2 and L3 screws with a diameter of 4.5 x 6 5 mm. 2C arms were installed for fluoroscopy. A left paramedian incision was made lateral from the L2 pedicle. The Pediguard tap was used to create a transpedicular trajectory into the vertebral body. The K wire was inserted. The steps were repeated for the right L3 and left L2 and L3 pedicles, A specially designed instrument was passed over the K wires to decorticate the posterior lateral gutter. A total of for pedicle screws were inserted with the above-mentioned diameters for the L2-3level. Bilaterally a 55 mm sasha was inserted and locked down with locking caps. Final x-rays and AP and lateral projection showed good position of the interbody device and instrumentation. Allograft was laid down in the posterior lateral gutter to complete the posterior lateral fusion. The paramedian incisions and the incision in the flank were closed in 2 layers. Steri-Strips were used to approximate the incisions. An OpSite with Tegaderm was used to cover the incision. All sponge and needle counts were correct. The patient was extubated and transported in a stable condition to the recovery room. This procedure was done with the aid of a physican's administrative assistant data entry as a qualified resident was not available. The physician administrative assistant data entry was critical for the following aspects of surgery: He performed insertion of the pedicle screws and rods with final closure of the incision Anesthesia: General Estimated Blood Loss (ml): Twenty Specimen: None Complications: None Duration of Surgery: 90 Postoperative Plan: Admit to med surg for monitoring
[2022-06-24] MEDS: oxyCODONE HCl Immed Release 5 MG TABLET PO (11:49)
[2022-06-24] MEDS: fentaNYL citrate/PF 100 MCG/2 ML VIAL 50 MCG IVPUSH (12:00)
[2022-06-24] MEDS: 0.9 % Sodium Chloride 1,000 ML 75 ML IVCONT (12:31)
--- NOTE | 2022-06-24 12:46 | PC.NURSE ---
Pt arrived on unit at 1220. easily aroused and oriented. bilateral extremities equal and strong. right lower dsg saturated reinforced. rates pain 8/10 was medicated in pacu. doses off to sleep
[2022-06-24] MEDS: oxyCODONE HCl Immed Release 5 MG TABLET 10 MG PO ×3 (13:45→23:29)
--- NOTE | 2022-06-24 14:35 | HO.NEURO.PN ---
Neurosurgery Operative Note Date of Service: 06/24/22 Narrative: Postoperative day 0. L2-3 trans Kambin oblique lumbar lateral interbody fusion Patient reports that he has not noticed his preoperative leg pain, he is happy about that but is having significant amount of back pain. The oxycodone does help significantly. No tingling numbness or weakness reported. He is due to void. Diet was advanced. Afebrile, vital signs stable Physical exam patient is awake alert oriented x3, no acute distress, bilateral lower extremity strength is full, sensation intact, back dressings have serous drainage on it on the left upper stab incision, no signs of hematomas. Impression: Postop day 0. L2-3 trans Kambin oblique lumbar lateral interbody fusion, patient clinically doing okay with the exception of some back pain which is managed with oxycodone. This should get better as the Toradol, Tylenol and oxycodone buildup in his system. PT is going to come work with him today. I anticipate he goes home tomorrow.
[2022-06-24] MEDS: Ketorolac Tromethamine 15 MG/ML VIAL IVPUSH ×2 (15:37→21:40)
[2022-06-24] MEDS: Docusate Sodium 100 MG CAPSULE PO (19:38)
--- NOTE | 2022-06-24 19:55 | PC.NURSE ---
2 surgical drsgs on a left side saturated with bloody drainage ,new drsg applied
[2022-06-24] MEDS: HYDROmorphone HCl 1 MG/ML SYRINGE IVPUSH (20:05)
--- NOTE | 2022-06-24 20:51 | PC.NURSE ---
BP elevated 182/85 pulse 76,patient was medicated for pain ,pain is controlled at present but BP still elevated,Dr. Rader notified
[2022-06-25] MEDS: HYDROmorphone HCl 1 MG/ML SYRINGE IVPUSH ×2 (00:41→07:30)
[2022-06-25] MEDS: 0.9 % Sodium Chloride 1,000 ML 75 ML IVCONT (01:11)
[2022-06-25] MEDS: ceFAZolin Sodium/Dextrose,Iso 2 GM/50 ML PIGGYBACK IV (01:15)
[2022-06-25 03:45] VITALS: BP 160/94; PULSE 80; RESP 16; TEMP 36.3; O2SAT 96
[2022-06-25] MEDS: Ketorolac Tromethamine 15 MG/ML VIAL IVPUSH ×2 (03:50→09:11)
[2022-06-25 07:32] VITALS: BP 169/81; PULSE 78; RESP 16; TEMP 36.9; O2SAT 95
--- NOTE | 2022-06-25 08:39 | HO.POSTANES ---
Post Anesthesia Evaluation Post Anesthesia Evaluation Vital Signs: Vital Signs Temp Pulse Resp BP Pulse Ox O2 Del Method 06/25/22 07:32 98.4 F 78 16 169/81 H 95 Room Air 06/25/22 03:45 97.4 F 80 16 160/94 H 96 Room Air 06/24/22 21:49 71 184/71 H 06/24/22 20:48 76 182/85 H Anesthesia: General Endotracheal-GETA Mental Status: Awake Pain Control: Satisfactory Nausea/Vomiting: None Hydration: Adequate Anesthesia-Related Issues: No Anes. Related Issues
[2022-06-25] MEDS: Acetaminophen 1,000 MG/100 ML PIGGYBACK 400 MG IV (09:11)
[2022-06-25] MEDS: Tamsulosin HCL 0.4 MG CAPSULE 0.8 MG PO (09:11)
--- NOTE | 2022-06-25 09:11 | HO.NEUROPN_ITS ---
Neurosurgery Operative Note Date of Service: 06/25/22 Narrative: Postoperative day 1. L2-3 trans Kambin minimally invasive oblique lateral lumbar interbody fusion patient reports he is having some discomfort on his left low back going into his left buttock. The right side pain is gone. Ali is a thing a little bit of numbness in his left knee. He was up walking in the hallways 300 ft. He is voiding and tolerating a diet just fine. He did end up getting IV Dilaudid last night which she said works a lot better than the p.o. oxycodone for his back pain and discomfort. Afebrile, vital signs stable physical exam: Patient seen at bedside with Dr. King, patient awake alert oriented x3, has full strength of bilateral lower extremities, Pac dressings of small amount of dried blood but otherwise clean and dry no signs of hematoma impression: Postop day 1. L2-3 trans Kambin minimally invasive oblique lateral lumbar interbody fusion, clinically doing okay, does have some left-sided low back pain going into his buttock and a little bit of left knee numbness likely d ue to the trans Kambin approach. His strength is okay is walking fine. He is tolerating diet and voiding. We will switch him to Dilaudid and plan for discharge this morning.
[2022-06-25] MEDS: Docusate Sodium 100 MG CAPSULE PO (09:12)
[2022-06-25] MEDS: Multivitamin TABLET 1 TAB PO (09:12)
--- NOTE | 2022-06-25 09:17 | P.DS_ITS ---
DS: Providers Provider Date of Service: 06/24/22 Date of admission: 06/24/22 06:02 Date of discharge: 06/25/22 Primary care physician: Danish Ashby MD Admitting clinician: Olegario King DS: Diagnosis Discharge Diagnosis (1) Lumbar stenosis with neurogenic claudication: Status: Acute DS: Summary Time Spent with Patient Time attestation: Total time managing care of this patient today ____ minutes. Discharge coordination time: Less than 30 minutes Quality: Safe Use of Opioids Does Pt have an Active Cancer Diagnosis on the Problem List?: No Quality: Stroke Does the patient have a stroke diagnosis?: No Physical Exam Vital Signs: Vital Signs: Last Vital Signs Temp 98.4 F 06/25/22 07:32 Pulse 78 06/25/22 07:32 Resp 16 06/25/22 07:32 BP 169/81 H 06/25/22 07:32 Pulse Ox 95 06/25/22 07:32 O2 Del Method Room Air 06/25/22 07:32 O2 Flow Rate 2 06/24/22 12:09 BMI result Body Mass Index 39.1 Discharge Plan Discharge Anticipated Discharge Date/Time: 06/25/22 09:18 Patient Disposition: Home, Self-Care Discharge Diagnosis: lumbar degenerative disk dz Referrals: Danish Ashby MD [Primary Care Provider] - 1 Week Discharge Medications: New docusate sodium [Colace] 100 mg capsule 100 mg PO BID Qty: 20 0RF hydromorphone [Dilaudid] 2 mg tablet See Rx Instructions .ROUTE .COMPLEX Qty: 40 0RF Rx Instructions: 1-2 tabs po q 4 hours prn pain Partial Fill upon patient request. Continued tamsulosin 0.4 mg capsule 0.8 mg PO DAILY multivitamin Tablet 1 tab PO DAILY Discharge Orders: Discharge Order (Routine); Ordered 06/25/22 Ordered By: Luis Hutchison Diet: Advance to usual diet Activity on Discharge: As tolerated Stand Alone Forms: Patient Portal Discharge page Activity Restrictions/Additional Instructions: After your spinal surgery we ask you to observe the following restrictions/guidelines: Activity: It is normal to feel some discomfort as you increase your activity, but that will improve with time. We ask you avoid heavy lifting or acitivities that cause pain. As a general rule, 8lbs is a safe limit for lifting right after surgery. Walk as much as you feel comfortable but not to exhaustion. You will feel extra tired the first few days after surgery. Stay well hydrated. It is OK to walk up and down stairs You may return to driving when you are off narcotics (such as vicodin, oxycodone, dilaudid, etc), and you are back to normal functional capacity. If you have any concerns please check with office before driving. Return to work is specific to each patient and each surgery, so please speak with your doctor/PA at first follow up. Please bring paperwork such as FMLA at that time if you need it filled out. Medications: We will give you a short supply of narcotics after surgery (usually one weeks worth). If you need more please call the office but do not use more than prescribed. You will need to give our office 48 hours notice if you need narcot ics refilled and we do not fill narcotics on weekends or evenings. If you are on a narcotic, it is a good idea to take a stool softener such as colace or senna to avoid constipation If you take blood thinner such as aspirin, Plavix, Coumadin, Effient, Eliquis etc for conditions such as Afib, DVT, Pulmonary embolus, coronary disease, stents etc please speak with your surgeon about specific details as to when you can resume these medications. You can resume NSAIDs on post op day 1 (eg: Motrin, Naproxen, etc). Follow up: Please call the office, , after surgery to arrange a 3 week follow up for wound check. Wound Care: You may remove your dressing on the first day after surgery. You may leave open to air. Please do not remove the steri strips underneath. they will fall off on their own in one week. IT IS NORMAL FOR THE WOUND TO OOZE OR BE BLOODY FOR A FEW DAYS AFTER SURGERY. IF THIS HAPPENS JUST PLACE NEW DRESSING OVER IT TO AVOID STAINING CLOTHES. You may shower on post op day # 1 We ask that you do not let the water soak the wound. If it does get wet, just towel dry lightly. Please do not scrub your incision or place any type of chemical/ointment on the wound. No tub baths, pools or jacuzzis for one month. If you have any leaking or redness from your wound, or fevers, please call office Care Plan Goals: discharge home Health Concerns: none Plan of Treatment: discharge home Assessment: stable
--- NOTE | 2022-06-25 13:02 | MHC.CM.PN ---
IMM 06/25/22 Male s/p L-2-3DDD He lives with . Discharge today to home self care. Patient has arranged for transport home.
== END 2022-06-25 10:28 | disposition home or self-care (01) | DRG 460 ==
LOC: HO.SSSA 06:20 → HO.S3 10:45
PROVIDERS: Admitting Provider Neurological Surgery; PCP Internal Medicine; Visit Provider Neurological Surgery
PROC: 0SG00A0 Fusion of Lumbar Vertebral Joint with Interbody Fusion Device, Anterior Approach, Anterior Column, Open Approach (ICD-10-PCS; principal; 2022-06-24 07:30)
DX: M48.062 Spinal stenosis, lumbar region with neurogenic claudication (principal); Z87.891 Personal history of nicotine dependence; Z79.899 Other long term (current) drug therapy
CPT/HCPCS: 93005; 97116; 97161; C1713; J0131; J0330; J0690; J1100; J1170; J1885; J2250; J2405; J3010; L8699

== ENCOUNTER 2022-07-16 13:04 | Outpatient (REF) | payer MEDICARE, SELFPAY | END 2022-07-16 13:05 | disposition home or self-care (01) | LOC: HO.HOSX 13:04 | PROVIDERS: PCP Internal Medicine; Visit Provider Physician Assistant | DX: M48.062 Spinal stenosis, lumbar region with neurogenic claudication (principal) | CPT/HCPCS: 99212 ==

== ENCOUNTER 2022-09-10 14:03 | Outpatient (AMB) | payer MEDICARE, SELFPAY ==
--- NOTE | 2022-09-10 15:38 | HO.SPINEOV ---
Intake Intake Visit Reasons: 6 week f/u with xrays/ok per Cyndy Intake Note: Mr. Johnson is here today for his 6wk f/u w/x-rays. Air Pollution Specialist Required: No Allergies adhesive Allergy (Verified 06/19/22 10:49) Unknown Assessment & Plan Assessment & Plan (1) Lumbar stenosis with neurogenic claudication: Code(s): M48.062 - Spinal stenosis, lumbar region with neurogenic claudication (2) Spondylolisthesis, lumbar region: Code(s): M43.16 - Spondylolisthesis, lumbar region Plan Mr Johnson is returning to the office today. He is almost 2 and half months out from his lumbar fusion. He still gets some back stiffness in the morning but it generally goes away fairly quickly. He feels still feels a general sense of diffuse leg weakness he needs to hold on something if there is any need to balance. His x-rays today look great. We discussed limitations, expectations and recovery from spinal fusion. I would like to send him to physical therapy to see if he can do some restrengthening of his legs and to help with some of the back stiffness. I will see him back in 2 months to re-evaluate. If he still having the weakness of his legs I will repeat his MRI just to be sure there was no residual stenosis. He is not having any pain down the legs. I refilled his Dilaudid 1 last time for him. Luis King MD, PhD [facility] Orders: Orders PT Evaluation and Treatment Today M48.062 - Spinal stenosis, lumbar region with neurogenic claudication Medications: Changed From hydromorphone (Dilaudid) 1-2 tabs po q 4 hours prn pain Partial Fill upon patient request. 40 tabs 0RF To hydromorphone (Dilaudid) 1-2 tabs daily prn pain Partial Fill upon patient request. 40 tabs 0RF Coding Level of Care Code Global (57827) Diagnoses Lumbar stenosis with neurogenic claudication M48.062 Spondylolisthesis, lumbar region M43.16
== END 2022-09-10 15:53 | disposition home or self-care (01) ==
PROVIDERS: PCP Internal Medicine; Visit Provider Physician Assistant
DX: M48.062 Spinal stenosis, lumbar region with neurogenic claudication (principal); M43.16 Spondylolisthesis, lumbar region
CPT/HCPCS: 99024

== ENCOUNTER 2022-09-10 14:20 | Outpatient (REF) | payer MEDICARE, SELFPAY ==
--- NOTE | ~2022-09-10 | XR_ITS ---
EXAMINATION: XR LUMBOSACRAL SPINE WITH OBLIQUES CLINICAL INFORMATION: Spinal stenosis, lumbar fusion, claudication COMPARISON: 06/12/2022 TECHNIQUE: AP, both oblique, and lateral views of the lumbar spine. Lateral view of the lumbosacral junction. FINDINGS: Patient is status post placement of posterior pedicles and vertical rods at the level of L4 to-L3 as well as intervertebral disc spacer. There are multilevel degenerative changes with narrowing of the disc spaces and marginal spurring. Hardware well-positioned. XR/XR lumbar spine 4V min IMPRESSION: Status post posterior fusion
== END 2022-09-10 14:21 | disposition home or self-care (01) ==
LOC: HO.HOSX 14:20
PROVIDERS: Visit Provider Physician Assistant
DX: M48.062 Spinal stenosis, lumbar region with neurogenic claudication (principal); M43.16 Spondylolisthesis, lumbar region
CPT/HCPCS: 72110

== ENCOUNTER 2022-11-12 09:03 | Day surgery (SDC) | payer MEDICARE, SELFPAY ==
--- NOTE | 2022-11-11 09:08 | HO.ANESPROP2 ---
Documented by User: Kayleigh Snow NP 11/11/22 09:09 HPI - Anesthesia Eval Consult details Narrative: 72yo M for Colonoscopy s/p spine surgery [facility] Active Problems Active Problems: All Active Problems (Updated 06/20/22 @ 12:55 by Lisa Nolan RN) Lumbar stenosis with neurogenic claudication (Acute) Spondylolisthesis, lumbar region (Acute) Past Medical History Medical History Sleep apnea Spinal stenosis Hematuria Family History Family history of problems with anesthesia: No Surgical History Surgical History Hx of carpal tunnel repair History of back surgery Hx of rotator cuff surgery History of bilateral knee replacement History of hip replacement Hx of colonoscopy History of Problems with Anesthesia: No Social History Social History Household Members: Spouse Housing: House Are you a primary laboratory animal caretaker to a significant other at home: No Do you presently have visiting nurse or other home services: No Patient Tobacco Use Status: Former Tobacco user Quit Date: 30 yrs ago Tobacco use type: Cigarette Use of substances other than those prescribed or required for medical reasons: No Are you DNR?: No Advance Directives: No Advance Directives Information Provided: Yes service: No Meds Allergies Allergy/AdvReac Type Severity Reaction Status Date / Time adhesive Allergy Unknown Verified 06/19/22 10:49 Home Medications Medication Instructions Recorded Confirmed Last Taken Type tamsulosin 0.4 mg capsule 0.8 mg PO DAILY 06/19/22 06/24/22 06/24/22 History multivitamin 1 tab PO DAILY 06/20/22 06/20/22 Unknown History Exam Exam Date and Time: November 11, 2022 0908 Pertinent Lab Results Pertinent Lab Results: Laboratory Tests 04/30/22 04/30/22 07:45 07:45 WBC 6.7 Hgb 14.1 Hct 45.5 Plt Count 214 Sodium 144 Potassium 4.7 Chloride 108 Carbon Dioxide 29 BUN 21 H Creatinine 0.82 Narrative Narrative: EKG 06/2022 Vent. Rate : 061 BPM Atrial Rate : 061 BPM P-R Int : 300 ms QRS Dur : 078 ms QT Int : 408 ms P-R-T Axes : 031 -13 019 degrees QTc Int : 410 ms Sinus rhythm with 1st degree A-V block cannot exclude old inferior infarct Abnormal ECG No previous ECGs available Assessment and Plan Assessment Anesthesia Assessment: Chart Reviewed Final Anesthetic Review Family History of Problems with Anesthesia: No History of Problems with Anesthesia: No Documented by User: Patricia Willoughby MD 11/12/22 12:20 PMFSH Active Problems Active Problems: All Active Problems (Updated 11/12/22 @ 11:41by Patricia Willoughby MD) Lumbar stenosis with neurogenic claudication (Acute) Spondylolisthesis, lumbar region (Acute) Increased BMI Past Medical History Medical History Sleep apnea Spinal stenosis Hematuria Surgical History Surgical History Hx of carpal tunnel repair History of back surgery Hx of rotator cuff surgery History of bilateral knee replacement History of hip replacement Hx of colonoscopy Social History Social History Household Members: Spouse Housing: House Are you a primary laboratory animal caretaker to a significant other at home: No Do you presently have visiting nurse or other home services: No Patient Tobacco Use Status: Former Tobacco user Quit Date: 30 yrs ago Tobacco use type: Cigarette Use of substances other than those prescribed or required for medical reasons: No Are you DNR?: No Advance Directives: No Advance Directives Information Provided: Yes service: No Meds Allergies Allergy/AdvReac Type Severity Reaction Status Date / Time adhesive Allergy Unknown Verified 06/19/22 10:49 Home Medications Medication Instructions Recorded Confirmed Last Taken Type tamsulosin 0.4 mg capsule 0.8 mg PO DAILY 06/19/22 06/24/22 06/24/22 History multivitamin 1 tab PO DAILY 06/20/22 06/20/22 Unknown History Exam Height,Weight and Vital Signs: Height 5 ft 9 in Weight 120.202 kg Vital Signs Temp Pulse Resp BP Pulse Ox O2 Del Method 11/12/22 11:31 97.9 F 52 18 122/79 97 Room Air Airway Mallampati Class: II TM Dist: >3cm Neck ROM: Full Loose/Missing/Broken Teeth: No (Crowns intact) Heart: RRR Lungs: CTAB Assessment and Plan Assessment Anesthesia Assessment: Anesthesia Plan Discussed Final Anesthetic Review NPO: Yes ASA Class: III Final Preanesthetic Review: No Changes in Pt Med Stat, Meds/Allgs Chart Reviewed, Consent Obtained/Reviewed and Anes Risks/Benef Reviewed Patient Risk: Intermediate Procedure Risk: Low Assessment/Block/Sedation in SS: Assess/Block/Sedation-SS Anesthetic Plan Anesthetic Plan: MAC: Disposition: Standard PACU
[2022-11-12 11:31] VITALS: BP 122/79; PULSE 52; RESP 18; TEMP 36.6; O2SAT 97
[2022-11-12 11:41] VITALS: BMI 39.1
[2022-11-12] MEDS: Lactated Ringers 1,000 ML 100 ML IVCONT (12:14)
--- NOTE | 2022-11-12 12:45 | MHC.SHP ---
Pre-Procedural Eval Section A Date of Service: 11/12/22 The patient is an INPATIENT: No Changes since office visit: No Cold of Flu in the past 2 weeks, No New Medical Problems, No Changes in Medication and No Patient answered all questions The History & Physical has been completed within 30 days and I have reviewed it.: Yes Section B Chief Complaint: screening Allergies: Allergies Allergy/AdvReac Type Severity Reaction Status Date / Time adhesive Allergy Unknown Verified 06/19/22 10:49 Plan I have reviewed the history and physical and performed a pertinent physical examination on my patient. No changes have occurred unless specified. Time Spent With Patient Time: Total time managing care of this patient today ____ minutes.
--- NOTE | 2022-11-12 13:23 | PM.OP ---
Brief Operative Note Date of Service: 11/12/22 Pre-op diagnosis: screening Post-op diagnosis: same Surgeon: Deon Pena Anesthesia: MAC Was an Assembly Machine Tool Setter used for this Procedure?: No Estimated blood loss (mL): 0 Pathology: none sent Condition: stable Disposition: PACU
[2022-11-12 13:25] VITALS: BP 106/60; PULSE 56; RESP 18; TEMP 36.2; O2SAT 99
[2022-11-12 13:40] VITALS: BP 127/79; PULSE 61; RESP 18; TEMP 36.3; O2SAT 99
--- NOTE | 2022-11-12 13:46 | OP_ITS ---
DATE OF SERVICE: 11/12/2022 SURGEON: Deon Pena MD INDICATIONS: Colon cancer screening and prior history of colon polyp. PREOPERATIVE DIAGNOSIS: POSTOPERATIVE DIAGNOSIS: PROCEDURE PERFORMED: Colonoscopy to the terminal ileum. ESTIMATED BLOOD LOSS: COMPLICATIONS: ANESTHESIA: Monitored anesthesia care. ASSISTANTS: SPECIMENS: DESCRIPTION OF PROCEDURE: A history and physical was performed. The risks and benefits of the procedure were explained to the patient. Informed consent was obtained. The patient was placed in the left lateral decubitus position. A digital rectal exam was performed and was found to be normal. The Olympus pediatric video colonoscope was introduced into the rectum and advanced to the cecum. The cecum was identified by transillumination, palpation, and identification of ileocecal valve. Examination was performed. The scope was removed. He tolerated the procedure well and was returned to the recovery area in stable condition. FINDINGS: The terminal ileum was examined and appeared normal. The visualized colonic mucosa was normal. The quality of the prep was good. There was moderate sigmoid diverticulosis. Retroflexed examination in the rectum showed small to moderate-sized internal hemorrhoids. IMPRESSION: Normal colonoscopy. RECOMMENDATION: 1. Follow up as needed. 2. Repeat colonoscopy is recommended in 10 years for average risk individuals. MD LIANE Bullock/PRAVIN / [phone]
== END 2022-11-12 14:05 | disposition home or self-care (01) ==
PROVIDERS: PCP Internal Medicine; Visit Provider Internal Medicine Gastroenterology
PROC: 0DJD8ZZ Inspection of Lower Intestinal Tract, Via Natural or Artificial Opening Endoscopic (ICD-10-PCS; CPT 45378; principal; 2022-11-12 10:50)
DX: Z12.11 Encounter for screening for malignant neoplasm of colon (principal); K57.30 Diverticulosis of large intestine without perforation or abscess without bleeding; K64.8 Other hemorrhoids; G47.33 Obstructive sleep apnea (adult) (pediatric); L23.1 Allergic contact dermatitis due to adhesives; Z98.890 Other specified postprocedural states; Z87.891 Personal history of nicotine dependence
CPT/HCPCS: G0121

== ENCOUNTER 2022-11-27 15:21 | Outpatient (AMB) | payer MEDICARE, SELFPAY ==
--- NOTE | 2022-11-27 15:27 | A.SPINEOV_ITS ---
Intake Intake Visit Reasons: Back pain Intake Note: Mr. Johnson is here today c/o back pain. Traveling Crane Operator Required: No Allergies adhesive Allergy (Verified 06/19/22 10:49) Unknown Assessment & Plan Assessment & Plan (1) Status post lumbar and lumbosacral fusion by anterior technique: Code(s): Z98.1 - Arthrodesis status Plan Dear colleague, On 11/26/2022, I saw for follow-up Torres Johnson. He underwent an oblique lateral lumbar interbody fusion L3-4 for neurogenic claudication on 06/25/2022. He complained of very residual back pain in the morning postoperatively but the leg symptoms disappeared. Since 3 weeks, he can developed severe low back pain when he lays flat. Recently he was in a motel any almost call 9 will walk due to the amount of pain. The last few nights he is sleeping in a recliner which significantly improved the symptoms. However, as soon as he lays in a flat position the severe symptoms may return. On exam: He stands in a flexed position. Flexion-extension is a uncomfortable with extension produces slightly more pain. Straight leg raise is negative. Radiological studies: Dynamic lumbar x-ray shows show no instability. The hardware is intact. In summary, this patient is suffering from intermittent severe low back pain when laying in a flat position. Extension is more painful than flexion and therefore a reclining position provides relief. I will order an MRI of the lumbar spine to assess if there is adjacent central disc herniation to explain his symptoms. He will return after the MRI. I spent 30 minutes in this consult for preparation, review of imaging and discussing plan of care. Thank you for letting me take care of your patient. Olegario King MD, PhD Spine Fellowship Trained Neurosurgeon Director, [facility] [place] Orders: Orders XR lumbar spine 4V min Today Z98.1 - Arthrodesis status MR lumbar spine wo con Today Z98.1 - Arthrodesis status Coding Level of Care Code Est Pt Level 4 (32519) Diagnoses Status post lumbar and lumbosacral fusion by anterior technique Z98.1
== END 2022-11-27 15:50 | disposition home or self-care (01) ==
PROVIDERS: PCP Internal Medicine; Visit Provider Neurological Surgery
DX: Z98.1 Arthrodesis status (principal)
CPT/HCPCS: 99214

== ENCOUNTER 2022-11-27 15:21 | Outpatient (REF) | payer MEDICARE, SELFPAY ==
--- NOTE | ~2022-11-27 | XR_ITS ---
EXAMINATION: XR LUMBOSACRAL SPINE WITH OBLIQUES CLINICAL INFORMATION: Arthrodesis status. COMPARISON: 09/10/2022 TECHNIQUE: 4 views including AP, lateral, flexion, extension of the lumbar spine. FINDINGS: Redemonstration of posterior fusion hardware with vertical rods and transpedicular screws at L2-L3. Hardware appears intact. Bilateral total hip prosthesis incompletely imaged. Degenerative changes with sclerosis in the bilateral sacroiliac joints. Advanced degenerative changes in the imaged lower thoracic and upper lumbar spine. Multilevel lumbar spondylosis. Facet arthritis in the lower lumbar spine. Minimal retrolisthesis of L2 on L3. Minimal anterolisthesis of L4 on L5. XR/XR lumbar spine 4V min IMPRESSION: Redemonstration of posterior fusion hardware with vertical rods and transpedicular screws at L2-L3. Hardware appears intact.
== END 2022-11-27 15:22 | disposition home or self-care (01) ==
LOC: HO.HOSX 15:21
PROVIDERS: PCP Internal Medicine; Visit Provider Neurological Surgery
DX: M54.50 Low back pain, unspecified (principal); Z98.1 Arthrodesis status
CPT/HCPCS: 72110; 99212

== ENCOUNTER 2023-01-08 08:53 | Outpatient (REF) | payer MEDICARE, SELFPAY ==
--- NOTE | ~2023-01-08 | MR_ITS ---
EXAMINATION: MR LUMBAR SPINE WITHOUT CONTRAST CLINICAL INFORMATION: Arthrodesis status. COMPARISON: Plain films of the lumbar spine 11/27/2022 and 09/10/2022. TECHNIQUE: MRI of the lumbar spine was obtained using routine sequences without contrast. FINDINGS: VERTEBRAL BODIES AND PARASPINAL STRUCTURES: There is a mild levoscoliosis. There are mild grade 1 anterolistheses of L1-L2, L4 on L5 and L5 on S1. There are sequelae of an instrumented posterior decompression and fusion at L2-L3 with bilateral pedicular screws joined by vertical rods and there is interbody device at this level. There is multilevel disc desiccation. There are multilevel degenerative endplate contour changes. There appear to be edematous endplate signal changes at L2-L3, but some of the signal may be susceptibility artifact from the hardware. There are fatty endplate signal changes with Schmorl's nodes at L4-L5. There is mild increased signal in the left paraspinal soft tissues at L2-L3. Vertebral body heights are maintained, and no fractures are demonstrated. Overall, marrow signal is homogenous. There are small bilateral renal cysts. There are degenerative changes of the sacroiliac joints. There is susceptibility artifact from bilateral total hip arthroplasties. CONUS MEDULLARIS AND CAUDA EQUINA: Normal, terminating at the level of T12-L1. The lower thoracic spinal cord appears normal. The cauda equina nerve roots and filum terminale appear normal. SPINAL LEVELS: T12-L1: There is mild bilateral facet arthropathy. Disc contour is normal. There is no central stenosis or foraminal narrowing. L1-L2: There are sequelae of a posterior decompression and fusion. There is unroofing of the disc as a result of the anterolisthesis, and there is a central and left paracentral disc protrusion with an extruded component extending behind the body of L2 to the left of midline. There is some distortion of the ventral thecal sac, but there is no central stenosis. The neural foramina are patent bilaterally. L2-L3: There are sequelae of an instrumented posterior decompression and fusion. Posterior vertebral body contours are normal and there is no central stenosis. There is a prominent left-sided foraminal disc osteophyte complex impinging on the exiting left L2 nerve root. A smaller disc osteophyte complex is seen on the right. L3-L4: There is moderate to severe bilateral facet arthropathy with ligamenta flava hypertrophy. There is a posterior disc osteophyte complex, but there is no central stenosis. There are right greater than left foraminal disc osteophytes, and there is impingement on the exiting right L3 nerve root. L4-L5: There is severe right and moderate severe left facet arthropathy with ligamenta flava hypertrophy. There is unroofing of the disc as a result of the anterolisthesis. There are small inferior foraminal disc protrusions bilaterally without definite exiting nerve root impingement. There is narrowing of the bilateral subarticular recesses, and there is moderate central stenosis. L5-S1: There are severe bilateral facet arthropathic changes. There is unroofing of the disc as a result of the anterolisthesis. There are inferior foraminal disc protrusions bilaterally, more prominent on the right with impingement on the exiting right L5 nerve root. There is mild flattening of the ventral thecal sac and there may be impingement on the traversing S1 nerve roots. There is mild central stenosis. MR/MR lumbar spine wo con IMPRESSION: 1. There are sequelae of an instrumented posterior decompression and fusion at L2-L3. There is a prominent left-sided foraminal disc osteophyte complex impinging on the exiting left L2 nerve root. There is no central stenosis. 2. At L1-L2 there are sequelae of a posterior decompression and fusion. There is a central and left paracentral disc protrusion/extrusion with some distortion of the ventral thecal sac but there is no central stenosis. The neural foramina are patent. 3. At L4-L5 there is severe right and moderate severe left facet arthropathy. There is unroofing of the disc as a result of the anterolisthesis. There are small inferior foraminal disc protrusions without definite exiting nerve root impingement. There is moderate central stenosis. 4. At L5-S1 there are severe facet arthropathic changes. There is unroofing of the disc as a result of the anterolisthesis. There are inferior foraminal disc protrusions, more prominent on the right with impingement on the exiting right L5 nerve root. There is mild central stenosis. 5. At L3-4 there is facet arthropathy and there is a posterior disc osteophyte complex. There is no central stenosis, but there is impingement of a foraminal disc osteophyte on the exiting right L3 nerve root.
== END 2023-01-08 08:54 | disposition home or self-care (01) ==
LOC: HO.MRI 08:53
PROVIDERS: PCP Internal Medicine; Visit Provider Neurological Surgery
DX: Z98.1 Arthrodesis status (principal)
CPT/HCPCS: 72148

== ENCOUNTER 2023-05-06 11:09 | Outpatient (REF) | payer MEDICARE, SELFPAY ==
[2023-05-06 11:14] LABS: MANUAL DIFF FLAG NO
[2023-05-06 11:33] LABS: Basophils Absolute Auto 0.1 X10*3/uL (0.0-0.2); Basophils Percent Auto 0.8 % (0-2); Eosinophils Absolute Auto 0.3 X10*3/uL (0.0-0.4); Eosinophils Percent Auto 5.4 % (0-4); Hematocrit 44.2 % (42.0-52.0); Hemoglobin 13.6 g/dl (14.0-18.0); Imm Gran Abs Auto 0.04 X10*3/uL (0.00-0.03); Imm Gran Pct Auto 0.7 % (0.0-0.4); Lymphocytes Absolute Auto 2.1 X10*3/uL (1.2-4.9); Lymphocytes Percent Auto 33.8 % (20-40); Mean Corpuscular HGB Conc 30.8 g/dl (31.0-36.0); Mean Corpuscular Hemoglobin 27.1 pg (27.0-33.0); Mean Corpuscular Volume 88.2 fL (80.0-98.0); Mean Platelet Volume 10.4 fL (9.4-12.4); Monocytes Absolute Auto 0.4 X10*3/uL (0.1-1.2); Monocytes Percent Auto 5.9 % (2-11); Neutrophils Absolute Auto 3.3 x10*3/uL (2.0-8.3); Neutrophils Percent Auto 53.4 % (45-73); Platelet Count 226 X10*3/uL (160-400); Red Blood Count 5.01 X10*6/uL (4.60-5.80); Red Cell Distribution Width 14.3 % (11.0-16.0); White Blood Count 6.1 X10*3/uL (4.8-10.8)
[2023-05-06 11:36] LABS: Estimated Average Glucose 114 mg/dL; Hemoglobin A1c % 5.6 % (<6.0)
[2023-05-06 11:38] LABS: Appearance Urine Clear; Color Urine Yellow; Glucose Urine UA Negative (Negative); Leukocyte Esterase Urine Negative (Negative); Nitrite Urine Negative (Negative); PH 5.5 (5.0-9.0); Specific Gravity - Urine 1.025 (1.005-1.025); UMIC TRIGGER UACC YES; Urine Blood Small (1+) (Negative); Urine Ketones Negative (Negative); Urine Protein Negative (Neg-Trace)
[2023-05-06 11:39] LABS: Alanine Aminotransferase 14 U/L (0-40); Albumin Level 3.9 g/dL (3.5-5.0); Alkaline Phosphatase 76 U/L (39-117); Anion Gap 14 (12-20); Aspartate Amino Transferase 18 U/L (5-37); Bilirubin Total 0.5 mg/dL (0.0-1.0); Blood Urea Nitrogen 16 mg/dL (9-16); Carbon Dioxide 28 mmol/L (22-29); Chloride 108 mmol/L (96-108); Cholesterol 187 mg/dL (<200); Estimated Glomerular Filt Rate > 60; Glucose Fasting 104 mg/dL (60-99); HDL Cholesterol 50 mg/dL (>40); LDL Cholesterol Calculated 107 mg/dL (<100); Potassium 4.5 mmol/L (3.3-5.1); Sodium 145 mmol/L (135-145); Total Protein 6.7 g/dL (6.5-8.0); Triglycerides 154 mg/dL (<150)
[2023-05-06 11:58] LABS: PSA,Total (Free>4and<10) 2.49 ng/mL (0.00-4.00)
[2023-05-06 12:27] LABS: Bacteria Urine None Seen (None Seen); Hyaline Casts Urine 0-2 /LPF (0-2); RBC Urine 0-2 /HPF (0-2); Squamous Epithelial Cell Urine 0-2 /HPF (0-2); WBC Urine 0-5 /HPF (0-5)
[2023-05-06 12:45] LABS: Creatinine Urine 151.66 mg/dL; Microalbum/Creatinine Ratio Ur 9.2 ug/mg cr (<30)
== END 2023-05-06 11:10 | disposition home or self-care (01) ==
LOC: HO.LNP 11:09
PROVIDERS: Visit Provider Internal Medicine
DX: Z12.5 Encounter for screening for malignant neoplasm of prostate (principal); I10 Essential (primary) hypertension; R73.03 Prediabetes; N40.0 Benign prostatic hyperplasia without lower urinary tract symptoms
CPT/HCPCS: 80053; 80061; 81001; 82043; 82570; 83036; 84153; 85025

== ENCOUNTER 2024-05-10 12:13 | Outpatient (REF) | payer MEDICARE, SELFPAY ==
[2024-05-10 12:17] LABS: MANUAL DIFF FLAG NO
[2024-05-10 12:28] LABS: Basophils Absolute Auto 0.1 X10*3/uL (0.0-0.2); Basophils Percent Auto 0.9 % (0-2); Eosinophils Absolute Auto 0.3 X10*3/uL (0.0-0.4); Eosinophils Percent Auto 4.8 % (0-4); Hematocrit 43.9 % (42.0-52.0); Hemoglobin 13.4 g/dl (14.0-18.0); Imm Gran Abs Auto 0.02 X10*3/uL (0.00-0.03); Imm Gran Pct Auto 0.3 % (0.0-0.4); Lymphocytes Percent Auto 28.7 % (20-40); Mean Corpuscular HGB Conc 30.5 g/dl (31.0-36.0); Mean Corpuscular Hemoglobin 27.1 pg (27.0-33.0); Mean Corpuscular Volume 88.7 fL (80.0-98.0); Mean Platelet Volume 10.1 fL (9.4-12.4); Monocytes Absolute Auto 0.4 X10*3/uL (0.1-1.2); Monocytes Percent Auto 5.9 % (2-11); Neutrophils Absolute Auto 4.1 x10*3/uL (2.0-8.3); Neutrophils Percent Auto 59.4 % (45-73); Platelet Count 224 X10*3/uL (160-400); Red Blood Count 4.95 X10*6/uL (4.60-5.80); Red Cell Distribution Width 14.8 % (11.0-16.0); White Blood Count 6.9 X10*3/uL (4.8-10.8)
[2024-05-10 12:29] LABS: Appearance Urine Cloudy; Color Urine Yellow; Glucose Urine UA Negative (Negative); Leukocyte Esterase Urine Moderate (2+) (Negative); Nitrite Urine Positive (Negative); PH 5.5 (5.0-9.0); UMIC TRIGGER UACC YES; Urine Blood Small (1+) (Negative); Urine Ketones Negative (Negative); Urine Protein Negative (Neg-Trace)
[2024-05-10 12:53] LABS: Estimated Average Glucose 123 mg/dL; Hemoglobin A1c % 5.9 % (<6.0)
[2024-05-10 13:03] LABS: Alanine Aminotransferase 13 U/L (0-40); Albumin Level 3.9 g/dL (3.5-5.0); Alkaline Phosphatase 65 U/L (39-117); Anion Gap 10 (12-20); Aspartate Amino Transferase 23 U/L (5-37); Bilirubin Total 0.5 mg/dL (0.0-1.0); Blood Urea Nitrogen 22 mg/dL (9-16); Calcium 8.8 mg/dL (8.4-10.2); Carbon Dioxide 28 mmol/L (22-29); Chloride 111 mmol/L (96-108); Cholesterol 187 mg/dL (<200); Estimated Glomerular Filt Rate > 60; Glucose Fasting 118 mg/dL (60-99); HDL Cholesterol 54 mg/dL (>40); LDL Cholesterol Calculated 103 mg/dL (<100); Potassium 4.6 mmol/L (3.3-5.1); Sodium 144 mmol/L (135-145); Total Protein 6.9 g/dL (6.5-8.0); Triglycerides 154 mg/dL (<150)
[2024-05-10 13:13] LABS: Creatinine Urine 121.68 mg/dL
[2024-05-10 13:19] LABS: Bacteria Urine 3+ (None Seen); Hyaline Casts Urine 0-2 /LPF (0-2); Squamous Epithelial Cell Urine 0-2 /HPF (0-2); UACC Culture Trigger YES
[2024-05-10 13:21] LABS: PSA,Total (Free>4and<10) 5.53 ng/mL (0.00-4.00)
--- OUTSIDE RECORDS SUMMARY | 2024-05-10 13:55 | XMS_ITS ---
Author Organization [facility] Address [address] [place] [id number] Care Team Providers Care Data Communications Technician Name Role Phone Danish Ashby MD Primary Care Provider Deon Mcfadden Jr [phone] REASON FOR VISIT lock note Encounters Encounter Location Date Provider Diagnosis [facility] [address] [place] [id number] 2022 Deon Pena Jr Plan Of Treatment No Information Progress Notes * JANE AYERS JrDOB:1 (72 yo M)Acc No.[id number] Patient:?JANE AYERS :1950???Age:72 Y???Sex:Male Address:[address], [place], [address] * true * Date:? Generated for Printi yesica/Gurinder/eTransmitting on:?05/10/2024 01:54 PM EDT
--- OUTSIDE RECORDS SUMMARY | 2024-05-10 13:55 | XMS_ITS | Clinical Summary ---
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); Personal history of malignant neoplasm of bladder from Last 3 Months Social History Tobacco Use Types Packs/Day Years Used Date Smoking Tobacco: Never Assessed Sex and Gender Information Value Date Recorded Sex Assigned at Not on file Legal Sex Male 2:20 PM EST Gender Identity Not on file Sexual Orientation Not on file Plan of Treatment Health Maintenance Due Date Last Done Comments COVID-19 Vaccine (#1) 1955 DTaP,Tdap,and Td Vaccines (1 - Tdap) 11/12/1971 Pneumococcal Vaccine: 50+ Ye ars (1 of 2 - PCV) 11/12/1971 Zoster Vaccines (1 of 2) 11/12/1971 Influenza Vaccine (#1) 2023 Abdominal Aortic Aneurysm (A AA) Screen 03/01/2024 Cholesterol Screening (Lipid Panel) 03/01/2024 Colorectal Cancer Screening: Colonoscopy 03/01/2024 Depression Screening 03/01/2024 Falls Risk Assessment 03/01/2024 Hepatitis C Screening 03/01/2024 Medicare Annual Wellness Visit 03/01/2024 Social Influencers of Health Screening 03/01/2024 RSV Immunization Patients 60 + Years Old (1 - 1-dose 75+ series) 11/12/2027 HIB Vaccines Aged Out No longer eligi ble based on patient's age to complete this topic HPV Vaccines Aged Out No longer eligi ble based on patient's age to complete this topic Hepatitis A Vaccines Aged Out No long er eligible based on patient's age to complete this topic Hepatitis B Vaccines Aged Out No long er eligible based on patient's age to complete this topic IPV Vaccines Aged Out No longer eligi ble based on patient's age to complete this topic MMR Vaccines Aged Out No longer eligi ble based on patient's age to complete this topic Meningococcal ACWY Vaccine Aged Out N o longer eligible based on patient's age to complete this topic Meningococcal B Vacine Aged Out No lo nger eligible based on patient's age to complete this topic RSV Immunization Patients Un darlene 20 months Aged Out No longer eligible b ased on patient's age to complete this topic Varicella Vaccines Aged Out No longer eligible based on patient's age to complete this topic Procedures Procedure Name Priority Date/Time Associated Diagnosis Comments AP OUTSIDE CONSULT Routine 02/24/2024 12 :00 AM EST 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 Urine, Voided, ([id number]): Negative for high grade urothelial carcinoma. Results of UroVysion fluorescence in situ hybridization (FISH) testing: CEP3: Normal CEP7: Normal CEP17: Normal LSI 9p21: Normal Interpretation: Normal profile Controls stained appropriately. Note: The results are intended as a screening device and should be interpreted in association with other clinical and pathological findings. 03/12/2024 1:47 PM [facility] Clinical Information C67.2 - Malignant neoplasm of lateral wall of bladder Z85.51 - Personal history of malignant neoplasm of bladder Urine Cytology/FISH (now) 03/12/2024 1:47 PM [facility] Gross Description A. Urine, Voided, ([id number]): Received is one ThinPrep slide for cytology screen and one ThinPrep slide for UroVysion FISH 03/12/2024 1:47 PM EST [facility] Disclaimer Technical pathology services provided by [facility] at [address], [place] [address] (CLIA #[id number]/Marisa Liu MD, Band Lining Bander) Unless otherwise specified, all tissue is 10% NB formalin fixed and paraffin embedded. 03/12/2024 1:47 PM EST [facility] Tissue Urine specimen from urethra / Unknown 02/24/2024 03/01/2024 2:23 PM EST us Luis Gregory MD LAB PATHOLOGY ORDERABLES Fi nal Result [facility] [address] [place] [address], [place] [phone] from Last 3 Months Insurance MEDICARE [facility] Care Teams Clinic Physician Relationship Specialty Start Date End Date Physician, Pcp Unknown PCP - General 03/10/24
--- OUTSIDE RECORDS SUMMARY | 2024-05-10 13:55 | XMS_ITS ---
Author Organization Danish Ashby MD Address [address] [place], [place] [address] Care Team Providers Care Golf Caddy Name Role Phone Danish Ashby Primary Care Provider Results Component Value Reference Range Notes Complete Blood Count Auto Di ff (Not yet reviewed by provider) Interpretation: Performing Lab:[facility], [address] [place] [phone] Notes/Report: White Blood Count 6.9 4.8-10.8 X10*3/uL Red Blood Count 4.95 4.60-5.80 X10*6/uL Hemoglobin 13.4 14.0-18.0 g/dl Hematocrit 43.9 42.0-52.0 % Mean Corpuscular Volume 88.7 80.0-98.0 fL Mean Corpuscular Hemoglobin 27.1 27.0-33.0 pg Mean Corpuscular HGB Conc 30.5 31.0-36.0 g/dl Red Cell Distribution Width 14.8 11.0-16.0 % Platelet Count 224 160-400 X10*3/uL Mean Platelet Volume 10.1 9.4-12.4 fL Neutrophils Percent Auto 59.4 45-73 % Imm Gran Pct Auto 0.3 0.0-0.4 % Lymphocytes Percent Auto 28.7 20-40 % Monocytes Percent Auto 5.9 2-11 % Eosinophils Percent Auto 4.8 0-4 % Basophils Percent Auto 0.9 0-2 % NRBC Pct Auto 0.0 0.0-0.2 /100WBC Neutrophils Absolute Auto 4.1 2.0-8.3 x10*3/u L Imm Gran Abs Auto 0.02 0.00-0.03 X10*3/uL Lymphocytes Absolute Auto 2.0 1.2-4.9 X10*3/u L Monocytes Absolute Auto 0.4 0.1-1.2 X10*3/uL Eosinophils Absolute Auto 0.3 0.0-0.4 X10*3/u L Basophils Absolute Auto 0.1 0.0-0.2 X10*3/uL NRBC Abs Auto 0.000 0.0-0.012 X10*3/uL Comprehensive [place]. Panel Fa st (Not yet reviewed by provider) Interpretation: Performing Lab:[facility], [address] [place] [phone] Notes/Report: Sodium 144 135-145 mmol/L Potassium 4.6 3.3-5.1 mmol/L Chloride 111 96-108 mmol/L Carbon Dioxide 28 22-29 mmol/L Anion Gap 10 12-20 Blood Urea Nitrogen 22 9-16 mg/dL Creatinine 0.95 0.5-1.4 mg/dL Estimated Glomerular Filt Rate > 60 Chronic Kidney Disease: Estimated GFR < 60 mL/min/1.73m2 Severe Kidney Disease: Estimated GFR < 15 mL/min/1.73m2 Glucose Fasting 118 60-99 mg/dL A fasting glucose from 100-125 mg/dl is considered impaired (pre-diabetes). Calcium 8.8 8.4-10.2 mg/dL Bilirubin Total 0.5 0.0-1.0 mg/dL Aspartate Amino Transferase 23 5-37 U/L Alanine Aminotransferase 13 0-40 U/L Total Protein 6.9 6.5-8.0 g/dL Albumin Level 3.9 3.5-5.0 g/dL Alkaline Phosphatase 65 39-117 U/L PSA,Total (Free>4and<10) (No t yet reviewed by provider) Interpretation: Performing Lab:[facility], [address] [place] [phone] Notes/Report: PSA,Total (Free>4and<10) 5.53 0.00-4.00 ng/mL PSA methodology: Morgan Alinity i Chemiluminescent Microparticle Immunoassay (CMIA) UA ClnCatch+Micro w/rflx Cul t (Not yet reviewed by provider) Interpretation: Performing Lab:[facility], [address] [place] [phone] Notes/Report: Urine, Clean Catch Color Urine Yellow Appearance Urine Cloudy PH 5.5 5.0-9.0 Glucose Urine UA Negative Negative mg/dL Urine Blood Small (1+) Negative Specific [place] - Urine 1.020 1.005-1.025 Urine Protein Negative Neg-Trace mg/dL Urine Ketones Negative Negative mg/dL Nitrite Urine Positive Negative Leukocyte Esterase Urine Moderate (2+) Negative RBC Urine 3-5 0-2 /HPF WBC Urine 11-20 0-5 /HPF Squamous Epithelial Cell Urine 0-2 0-2 /HPF Bacteria Urine 3+ None Seen Hyaline Casts Urine 0-2 0-2 /LPF Lipid Panel Reviewed date:05/10/2024 01:52:48 PM Interpretation: Performing Lab:[facility], [address] [place] [phone] Notes/Report: Triglycerides 154 <150 mg/dL Desirable Triglyceride: less than 150 mg/dL Borderline High Triglyceride 150-199 mg/dL High Triglyceride: 200-499 mg/dL Very High Triglyceride: greater than or equal to 5OO mg/dL Cholesterol 187 <200 mg/dL Desirable Cholesterol: less than 200 mg/dL Borderline High Cholesterol: 200-239 mg/dL High Cholesterol: greater than 239 mg/dL LDL Cholesterol Calculated 103 <100 mg/dL Desirable LDL: less than 100 mg/dL Near Optimal/Above Optimal LDL: 110-129 mg/dL Borderline High LDL: 130-159 mg/dL High LDL: 160-189 mg/dL Very High LDL: greater than or equal to 190 mg/dL HDL Cholesterol 54 >40 mg/dL Desirable HDL: greater than 40 mg/dL Note: This HDL assay may give artificially low results in patients with liver disease. Microalbumin, Random Reviewed date:05/10/2024 01:52:21 PM Interpretation: Performing Lab:[facility], [address] [place] [phone] Notes/Report: Creatinine Urine 121.68 Microalbumin Urine 39.0 Microalbum/Creatinine Ratio Ur 32.0 <30 ug/mg cr Albumin/Creatinine Ratio Reference Ranges: Normal: < 30 ug/mg creatinine Microalbuminuria: 30 - 300 ug/mg creatinine Clinical Albuminuria: > 300 ug/mg creatinine Hemoglobin A1c Reviewed date:05/10/2024 01:51:40 PM Interpretation: Performing Lab:[facility], [address] [place] [phone] Notes/Report: Hemoglobin A1c % 5.9 <6.0 % Hemoglobin A1C Reference Range Adults: 4.8 - 6.0 % Non diabetic: < 6.0 % Goal: < 7.0 % Additional Action Suggested: > 8.0 % Note: Hemoglobin A1c results are invalid for patients with abnormal amounts of HbF. Blood transfusions may impact the HbA1c concentration in the patient sample. Estimated Average Glucose 123 eAG = Estimated average glucose which is %A1C expressed as average glucose, using the formula of the F5D-Nphplas Average Glucose study (ADAG), Diabetes Care, Vol.31,#8, Sep. 2007 REASON FOR VISIT yearly fasting labs Encounters Encounter Location Date Provider Diagnosis Danish Ashby MD [address] [place] [address] [address] [place], [place] [phone] 05/10/2024 Dansih Ashby Essential hypertension I10 ; Prostatism N40.0 and Prediabetes R73.09 Assessments Encounter Date Diagnosis (ICD Code) Assessment Notes Treatment Notes Treatment Clinical Notes Section Notes 05/10/2024 Essential hypertension (ICD-10 - I10) 05/10/2024 Prostatism (ICD-10 - N40.0) 05/10/2024 Prediabetes (ICD-10 - R73.09) Plan Of Treatment Pending Test Test Name Order Date Complete Blood Count Auto Diff 5 Comprehensive [place]. Panel Fast PSA,Total (Free>4and<10) 05/10/2024 UA ClnCatch+Micro w/rflx Cult 05/10/2024 Next Appt Details Provider Name:Danish Carbajal ier, 05/17/2024 10:30:00 AM, [address], [address], [place], [phone], Progress Notes * ROGELIOTorres ERWIN RDOB:03/1950 (73 yo M)Acc No.[id number]:05/10/2024 Progress Note Patient:?Torres AYERS Provider:?Danish Ashby MD :1950???Age:73 Y???Sex:Male Mathew e:05/10/2024 Address:[address] [place] [address], [phone] Subjective: * Chief Complaints: * ???1. Yearly fasting labs. * Medical History:? Objective: * Vitals:? Assessment: * Assessment: 1.?Essential hypertension - I10 (Primary)???2.?Prostatism - N40.0???3.?Prediabetes - R73.09??? Plan: * Treatment: 2.?Prostatism?LAB: Complete Blood Count Auto Diff (Collection Date & Time - 05/10/2024 07:00 AM) ?LAB: Comprehensive [place]. Panel Fast (Collection Date & Time - 05/10/2024 07:00 AM) ?LAB: PSA,Total (Free>4and<10) (Collection Date & Time - 05/10/2024 07:00 AM) ?LAB: UA ClnCatch+Micro w/rflx Cult (Collection Date & Time - 05/10/2024 07:00 AM) ?LAB: Lipid Panel (Collection Date & Time - 05/10/2024 07:00 AM) ?LAB: Microalbumin, Random (Collection Date & Time - 05/10/2024 07:00 AM) ?LAB: Hemoglobin A1c (Collection Date & Time - 05/10/2024 07:00 AM) 3.?Prediabetes?LAB: Complete Blood Count Auto Diff (Collection Date & Time - 05/10/2024 07:00 AM) ?LAB: Comprehensive [place]. Panel Fast (Collection Date & Time - 05/10/2024 07:00 AM) ?LAB: PSA,Total (Free>4and<10) (Collection Date & Time - 05/10/2024 07:00 AM) ?LAB: UA ClnCatch+Micro w/rflx Cult (Collection Date & Time - 05/10/2024 07:00 AM) ?LAB: Lipid Panel (Collection Date & Time - 05/10/2024 07:00 AM) ?LAB: Microalbumin, Random (Collection Date & Time - 05/10/2024 07:00 AM) ?LAB: Hemoglobin A1c (Collection Date & Time - 05/10/2024 07:00 AM) * Procedure Codes:?88578 VENIP UNCT, ROUTINE* * * The named appointment provid er may or may not be the originator of this progress note, and it is not deemed complete until electronically signed by the appointment provider. Sign off status: Pending * Provider:?Danish Ashby MD Date:?0 05/10/2024 Generated for Monica robert/Gurinder/Caititting on:?05/10/2024 01:55 PM EDT
--- OUTSIDE RECORDS SUMMARY | 2024-05-10 13:55 | XMS_ITS | Patient Health Record ---
Author Organization [facility] Address [address] [place] [address] Care Team Providers Care Rn Cardiovascular Icu Name Role Phone Symone CHOUDHARY, Danish Primary Care Provider Deon Mcfadden Jr Unavailable Allergies Allergen (clinical drug ingredient) Drug/Non Drug Allergy documented on EMR Reaction Allergy Type Onset Date Status plastic medical tape (uncoded) Unknown Allergy Active Reason For Referral No Information Medications Medication SIG (Take, Route, Frequency, Duration) Notes Start Date End Date Status Tums Not-Taking MiraLax (colon prep) 17 GM/SCOOP mixed with Gatorade or Crystal Light Orally begin at 5:00 p.m. the day before the procedure for 1 day 10/24/2022 Active Advil Not-Taking Flomax 0.4 MG 1 capsule Orally Onc e a day for 30 day(s) Active Multivitamin - 1 tablet Orally Once a day for 30 day(s) Active Social History Alcohol Screen Question Answer Notes Did you have a drink contain ing alcohol in the past year? Yes How often did you have a dri nk containing alcohol in the past year? Never (0 point) How many drinks did you have on a typical day when you were drinking in the past year? 1 or 2 drinks (0 point) How often did you have 6 or more drinks on one occasion in the past year? Never (0 point) Points 0 Interpretation Negative Section Notes: occasional beer or two Problems Problem Type SNOMED Code ICD Code Onset Dates Problem Status W/U Status Risk Notes Problem [id number] Colon cancer screening (Z12.11) Active confirmed Plan Of Treatment Future Test Test Name Order Date COLONOSCOPY CONTROL OF BLEEDING ANY METH OD 10/24/2022 COLONOSCOPY 10/24/2022 Insurance Providers Payer Name Payer Address Payer Phone Subscriber Number Group Number Insured Name Patient Relationship to Insured Coverage Start Date Coverage End Date MEDICARE OF [place] [address] [place] [address] [phone] [id number] JANE [place] Self - patient is the insured MED[employer] ATT[employer] CLAIMS [address] [place] [phone] [id number] JANE ISRAEL Self - patient is the insured Medical (General) History Medical History History ICD Code Gastroesophageal reflux disease Insomnia Colonoscopy 03/24, lymphoid polyp, ten-ye ar followup Back pain Arthritis Elevated PSA Surgical History Surgery Date(Month/Year) bilateral hip replacement shoulder surgery lower back x2 bilateral knees
--- OUTSIDE RECORDS SUMMARY | 2024-05-10 13:55 | XMS_ITS ---
Author Organization Danish Ashby MD Address [address] [place] [phone] Care Team Providers Care Lead Process Engineer Name Role Phone Danish Ashby Primary Care Provider REASON FOR VISIT Flu Shot Encounters Encounter Location Date Provider Diagnosis Danish Ashby MD [address] [place] [phone] 11/14/2023 Danish Ashby Plan Of Treatment Next Appt Details Provider Name:Danish Carbajal ier, 05/17/2024 10:30:00 AM, [address], Suite [facility], [place], [place], [phone], Progress Notes * Torres AYERS RDOB:03/1950 (73 yo M)Acc No.[id number]:11/14/2023 Patient:?Torres Ayers :1950???Age:73 Y???Sex:Male Address:[address] [place] [address], [place] [address] * true * Date:? Generated for Monica robert/Gurinder/Zohra on:?05/10/2024 01:54 PM EDT
--- OUTSIDE RECORDS SUMMARY | 2024-05-10 13:55 | XMS_ITS ---
Author Organization [facility] Address [address] [place] [address] Care Team Providers Care Protective Service Specialist Name Role Phone Danish Ashby MD Primary Care Provider Deon Mcfadden Jr REASON FOR VISIT screening Encounters Encounter Location Date Provider Diagnosis [facility] [address] [place] [phone] 11/12/2022 Deon Pena Jr Encounter for screening colonoscopy Z12.11 Assessments Encounter Date Diagnosis (ICD Code) Assessment Notes Treatment Notes Treatment Clinical Notes Section Notes 11/12/2022 Encounter for screening colonoscopy (ICD-10 - Z12.11) Plan Of Treatment No Information Progress Notes * JANE AYERS JrDOB:1 (73 yo M)Acc No.[id number]:11/12/2022 COLON WITH MAC Patient:?JANE AYERS Jr Provider:?Deon Pena MD :1950???Age:72 Y???Sex:Male Mathew e:11/12/2022 Address:[address] [facility] Pcp:Danish Ashby MD Subjective: * Chief Complaints: * ???1. Screening. * Medical History:? Objective: * Vitals:? Assessment: * Assessment: 1.?Encounter for screening c olonoscopy - Z12.11 (Primary)??? Plan: * Treatment: * Procedure Codes:?00225 DIAGN OSTIC COLONOSCOPY * * The named appointment provid er may or may not be the originator of this progress note, and it is not deemed complete until electronically signed by the appointment provider. Sign off status: Pending * Provider:?Deon Pena MD Date:?1 Generated for Monica robert/Gurinder/Caititting on:?05/10/2024 01:55 PM EDT
--- OUTSIDE RECORDS SUMMARY | 2024-05-10 13:55 | XMS_ITS ---
Author Organization Danish Ashby MD Address [address] [place] [phone] Care Team Providers Care Special Makeup Fx Artist Instructor Name Role Phone Danish Ashby Primary Care Provider REASON FOR VISIT Flomax Encounters Encounter Location Date Provider Diagnosis Danish Ashby MD [address] [place] [phone] 03/04/2024 Danish Ashby Plan Of Treatment Next Appt Details Provider Name:Danish Carbajal ier, 05/17/2024 10:30:00 AM, [address], Suite [facility], [place], [place], [phone], Progress Notes * Torres AYERS RDOB:03/1950 (73 yo M)Acc No.[id number]:03/04/2024 Patient:?Torres AYERS :1950???Age:73 Y???Sex:Male Address:[address] [place] [address], [address] [facility] [place] [address] * true * Date:? Generated for Monica robert/Gurinder/Zohra on:?05/10/2024 01:55 PM EDT
--- OUTSIDE RECORDS SUMMARY | 2024-05-10 13:56 | XMS_ITS | Encounter Summary ---
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); Personal history of malignant neoplasm of bladder Social History Tobacco Use Types Packs/Day Years Used Date Smoking Tobacco: Never Assessed Sex and Gender Information Value Date Recorded Sex Assigned at Not on file Legal Sex Male 2:20 PM EST Gender Identity Not on file Sexual Orientation Not on file documented as of this encounter Plan of Treatment Not on file documented as of this encounter Procedures Procedure Name Priority Date/Time Associated Diagnosis Comments AP OUTSIDE CONSULT Routine 02/24/2024 12 :00 AM EST 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 Urine, Voided, ([id number]): Negative for high grade urothelial carcinoma. Results of UroVysion fluorescence in situ hybridization (FISH) testing: CEP3: Normal CEP7: Normal CEP17: Normal LSI 9p21: Normal Interpretation: Normal profile Controls stained appropriately. Note: The results are intended as a screening device and should be interpreted in association with other clinical and pathological findings. 03/12/2024 1:47 PM EST [facility] Clinical Information C67.2 - Malignant neoplasm of lateral wall of bladder Z85.51 - Personal history of malignant neoplasm of bladder Urine Cytology/FISH (now) 03/12/2024 1:47 PM [facility] Gross Description A. Urine, Voided, ([id number]): Received is one ThinPrep slide for cytology screen and one ThinPrep slide for UroVysion FISH 03/12/2024 1:47 PM [facility] Disclaimer Technical pathology services provided by [facility] at [address] [place] [address] [address], [place] [address] (CLIA #[id number]/Marisa Liu MD, Painter Mirror) Unless otherwise specified, all tissue is 10% NB formalin fixed and paraffin embedded. 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
--- OUTSIDE RECORDS SUMMARY | 2024-05-10 13:56 | XMS_ITS ---
Author Organization [facility] Address [address] [place] [address] Care Team Providers Care Upholstery Handler Name Role Phone Danish Ashby MD Primary Care Provider Deon Mcfadden Jr REASON FOR VISIT screening Encounters Encounter Location Date Provider Diagnosis [facility] Outpatient [address] [place] [phone] 11/20/2022 Deon Pena Jr Plan Of Treatment No Information Progress Notes * JANE AYERS JrDOB:1 (73 yo M)Acc No.[id number]:11/20/2022 COLON WITH MAC Patient:?JANE AYERS Jr Provider:?Deon Pena MD :1950???Age:72 Y???Sex:Male Mathew e:11/20/2022 Address:[address] [facility] Pcp:Danish Ashby MD Subjective: * Chief Complaints: * ???1. Screening. * Medical History:? Objective: * Vitals:? Assessment: Plan: * Treatment: * * The named appointment provid er may or may not be the originator of this progress note, and it is not deemed complete until electronically signed by the appointment provider. Sign off status: Pending * Provider:?Deon Pena MD Date:?1 Generated for Monica robert/Gurinder/eTransmitting on:?05/10/2024 01:55 PM EDT
[2024-05-12 13:34] LABS: Free Prostate Spec Ag 0.5 ng/mL; Percent Free Prostate Spec Ag 10 % (calc) (>25)
== END 2024-05-10 12:14 | disposition home or self-care (01) ==
LOC: HO.LNP 12:13
PROVIDERS: Visit Provider Internal Medicine
DX: I10 Essential (primary) hypertension (principal); N40.0 Benign prostatic hyperplasia without lower urinary tract symptoms; R73.03 Prediabetes; Z12.5 Encounter for screening for malignant neoplasm of prostate
CPT/HCPCS: 80053; 80061; 81001; 82043; 82570; 83036; 84153; 84154; 85025; 87086; 87088; 87186

== ENCOUNTER 2024-06-08 11:46 | Outpatient (REF) | payer MEDICARE, SELFPAY ==
[2024-06-08 12:07] LABS: Appearance Urine Clear; Color Urine Yellow; Glucose Urine UA Negative (Negative); Leukocyte Esterase Urine Small (1+) (Negative); Nitrite Urine Negative (Negative); UMIC TRIGGER UACC YES; Urine Blood Trace (Negative); Urine Ketones Trace mg/dL (Negative); Urine Protein Negative (Neg-Trace)
[2024-06-08 12:13] LABS: Bacteria Urine 4+ (None Seen); Hyaline Casts Urine 0-2 /LPF (0-2); RBC Urine 0-2 /HPF (0-2); Squamous Epithelial Cell Urine 0-2 /HPF (0-2); UACC Culture Trigger YES; WBC Urine 21-50 /HPF (0-5)
--- OUTSIDE RECORDS SUMMARY | 2024-06-08 13:55 | XMS_ITS | Encounter Summary ---
Author Organization 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 Urine, Voided, ([id number]): Negative for high grade urothelial carcinoma. Results of UroVysion fluorescence in situ hybridization (FISH) testing: CEP3: Normal CEP7: Normal CEP17: Normal LSI 9p21: Normal Interpretation: Normal profile Controls stained appropriately. Note: The results are intended as a screening device and should be interpreted in association with other clinical and pathological findings. 03/12/2024 1:47 PM [facility] Clinical Information C67.2 - Malignant neoplasm of lateral wall of bladder Z85.51 - Personal history of malignant neoplasm of bladder Urine Cytology/FISH (now) 03/12/2024 1:47 PM [facility] Gross Description A. Urine, Voided, ([id number]): Received is one ThinPrep slide for cytology screen and one ThinPrep slide for UroVysion FISH 03/12/2024 1:47 PM [facility] Disclaimer Technical pathology services provided by [facility] at [address] [place] [address] [address], [place] [address] (CLIA #[id number]/Marisa Liu MD, Coal Tram Driver) Unless otherwise specified, all tissue is 10% NB formalin fixed and paraffin embedded. 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
--- OUTSIDE RECORDS SUMMARY | 2024-06-08 13:55 | XMS_ITS | Clinical Summary ---
Author Organization [facility] Address [address] [place] [address] Phone Care Team Providers Care Acetylene Cutter Name Role Phone Physician, Pcp Unknown Primary Care Provider Mechelle vailable Social History Tobacco Use Types Packs/Day Years [...] 11/12/1971 Zoster Vaccines (1 of 2) 11/12/1971 Abdominal Aortic Aneurysm (A AA) Screen 03/01/2024 Cholesterol Screening (Lipid Panel) 03/01/2024 Colorectal Cancer Screening: Colonoscopy 03/01/2024 Depression Screening 03/01/2024 Falls Risk Assessment 03/01/2024 Hepatitis C Screening 03/01/2024 Medicare Annual Wellness Visit 03/01/2024 Social Influencers of Health Screening 03/01/2024 Influenza Vaccine (Season Ended) 2024 RSV Immunization Adult Patie nts (1 - 1-dose 75+ series) 11/12/2027 HIB [...] age to complete this topic Meningococcal B Vaccine Aged Out No l onger eligible based on patient's age to complete this topic RSV Immunization Patients Un darlene 20 months Aged Out No longer eligible b ased on patient's age to complete this topic Varicella Vaccines Aged Out No longer eligible based on patient's age to complete this topic Insurance MEDICARE [facility] Care Teams Acetylene Cutter Relationship Specialty Start Date End Date Physician, Pcp Unknown PCP - General 03/10/24
== END 2024-06-08 11:47 | disposition home or self-care (01) ==
LOC: HO.LNP 11:46
PROVIDERS: Visit Provider Internal Medicine
DX: R31.9 Hematuria, unspecified (principal)
CPT/HCPCS: 81001; 87086; 87088; 87186

== ENCOUNTER 2024-06-17 09:49 | Outpatient (REF) | payer MEDICARE, SELFPAY ==
--- OUTSIDE RECORDS SUMMARY | 2024-06-17 10:40 | XMS_ITS | Clinical Summary ---
Author Organization [facility] Address [address] [place] [address] Phone Care Team Providers Care Staff Midwife/Apprenticeship Director Name Role Phone Physician, Pcp Unknown Primary [...] age to complete this topic Insurance MEDICARE [facility] Care Teams Staff Midwife/Apprenticeship Director Relationship Specialty Start Date End Date Physician, Pcp Unknown PCP - General 03/10/24
--- OUTSIDE RECORDS SUMMARY | 2024-06-17 10:40 | XMS_ITS ---
Author Organization Danish Ashby MD Address [address] [place] [phone] Care Team Providers Care Granite Worker Name Role Phone Danish Ashby Primary Care Provider [phone] REASON FOR VISIT PSA and After Care UA Encounters Encounter Location Date Provider Diagnosis Danish Ashby MD [address] [place] [phone] 06/17/2024 Danish Ashby Bladder cancer C67.9 and UTI (urinary tract infection) N39.0 Assessments Encounter Date Diagnosis (ICD Code) Assessment Notes Treatment Notes Treatment Clinical Notes Section Notes 06/17/2024 Bladder cancer (ICD-10 - C67.9) 06/17/2024 UTI (urinary tract infection) (ICD-10 - N39.0) Plan Of Treatment Pending Test Test Name Order Date UA ClnCatch+Micro w/rflx Cult 06/17/2024 PSA,Total (Free>4and<10) 06/17/2024 Next Appt Details Provider Name:Danish Carbajal giovanna, 06/28/2024 08:15:00 AM, [address], [address], [place], [place], [phone], Provider Name:Danish Carbajal chacer, 11/23/2024 10:00:00 AM, [address], [address], [place], [phone], Provider Name:Danish Carbajal chacer, 05/12/2025 07:45:00 AM, [address], [address], [place], [phone], Provider Name:Danish masr, 05/20/2025 09:30:00 AM, [address], [address], [place], [phone], Progress Notes * Torres AYERS RDOB:03/1950 (73 yo M)Acc No.[id number]:06/17/2024 Progress Note Patient:?Torres AYERS Chad Provider:?Danish Ashby MD :1950???Age:73 Y???Sex:Male Mathew e:06/17/2024 Address:[address] [place], [place] [phone] Subjective: * Chief Complaints: * ???1. PSA and After Care UA. * Medical History:? Objective: * Vitals:? Assessment: * Assessment: 1.?Bladder cancer - C67.9??? 2.?UTI (urinary tract infection) - N39.0??? Plan: * Treatment: 2.?UTI (urinary tract infect ion)?LAB: UA ClnCatch+Micro w/rflx Cult * Procedure Codes:?20402 VENIP UNCT, ROUTINE* * * The named appointment provid er may or may not be the originator of this progress note, and it is not deemed complete until electronically signed by the appointment provider. Sign off status: Pending * Provider:?Danish Ashby MD Date:?0 06/17/2024 Generated for Monica robetr/Gurinder/Caititting on:?06/17/2024 10:40 AM EDT
--- OUTSIDE RECORDS SUMMARY | 2024-06-17 10:40 | XMS_ITS ---
Author Organization Danish Ashby MD Address [address] [place] [phone] Care Team Providers Care Director Of Product Marketing Name Role Phone Danish Ashby Primary Care Provider REASON FOR VISIT Urine Test Medications Medication SIG (Take, Route, Fr equency, Duration) Notes Start Date End Date Status Cephalexin 500 MG 1 capsule Orally 3 t imes a day for 7 days 06/10/2024 Active Encounters Encounter Location Date Provider Diagnosis Danish Ashby MD [address] [place], [place] [phone] 06/10/2024 Danish Ashby Plan Of Treatment Medication Medication Name Sig Start Date Stop Date Notes Cephalexin 500 MG 1 capsule Orally 3 t imes a day for 7 days 06/10/2024 Next Appt Details Provider Name:Danish heredia, 06/28/2024 08:15:00 AM, [address], [address], [place], [place], [phone], Provider Name:Danish Carbajal ier, 11/23/2024 10:00:00 AM, [address], [address], [place], [phone], Provider Name:Danish Carbajal ier, 05/12/2025 07:45:00 AM, [address], [address], [place], [phone], Provider Name:Danish Carbajal ier, 05/20/2025 09:30:00 AM, [address] [place] [address] Drive, [address], [place], [phone], Progress Notes * Torres AYERS RDOB:03/1950 (73 yo M)Acc No.[id number]:06/10/2024 Patient:?Torres AYERS :1950???Age:73 Y???Sex:Male Address:[address] [place] [address] [address], [place] [address] * Refills? Start Cephalexin Capsule, 500 MG, Orally, 21 Capsule, 1 capsule, 3 times a day, 7 days * true * Date:? Generated for Monica robert/Gurinder/eTransmitting on:?06/17/2024 10:40 AM EDT
--- OUTSIDE RECORDS SUMMARY | 2024-06-17 10:40 | XMS_ITS | Patient Health Record ---
Author Organization [facility] Address [address] [place] [phone] Care Team Providers Care Head Banquet Waiter/Waitress Name Role Phone Symone CHOUDHARY, Danish Primary [...] Problem Status W/U Status Risk Notes Problem [id number] Colon cancer screening (Z12.11) Active confirmed Plan Of Treatment Future Test Test Name Order Date COLONOSCOPY CONTROL OF BLEEDING ANY METH OD 10/24/2022 COLONOSCOPY 10/24/2022 Insurance Providers Payer Name Payer Address Payer Phone Subscriber Number Group Number Insured Name Patient Relationship to Insured Coverage Start Date Coverage End Date MEDICARE OF [place] [address] [place] [id number] JANE IS[place] Self - patient is the insured [employer] ATT[employer] CLAIMS [address] [place] [address] [phone] [id number] JANE ISRAEL Self - patient is the insured Medical (General) History Medical History History ICD Code Gastroesophageal reflux disease Insomnia Colonoscopy 03/24, lymphoid polyp, ten-ye ar followup Back pain Arthritis Elevated PSA Surgical History Surgery Date(Month/Year) bilateral hip replacement shoulder surgery lower back x2 bilateral knees
--- OUTSIDE RECORDS SUMMARY | 2024-06-17 10:40 | XMS_ITS ---
Author Organization Danish Ashby MD Address [address] [place], [place] [phone] Care Team Providers Care Project Assistant Name Role Phone Danish Ashby Primary Care Provider Results Component Value Reference Range Notes UA ClnCatch+Micro w/rflx Cul t Reviewed date:06/08/2024 12:40:12 PM Interpretation: Performing Lab:[facility] [place], [address] [place] [phone] Notes/Report: Urine, Clean Catch Color Urine Yellow Appearance Urine Clear PH 5.0 5.0-9.0 Glucose Urine UA Negative Negative mg/dL Urine Blood Trace Negative Specific [place] - Urine 1.020 1.005-1.025 Urine Protein Negative Neg-Trace mg/dL Urine Ketones Trace Negative mg/dL Nitrite Urine Negative Negative Leukocyte Esterase Urine Small (1+) Negative RBC Urine 0-2 0-2 /HPF WBC Urine 21-50 0-5 /HPF Squamous Epithelial Cell Urine 0-2 0-2 /HPF Bacteria Urine 4+ None Seen Hyaline Casts Urine 0-2 0-2 /LPF REASON FOR VISIT Repeat U/A Encounters Encounter Location Date Provider Diagnosis Danish Ashby MD [address] [place] [address] [place] [phone] 06/08/2024 Danish Ashby Hematuria R31.9 Assessments Encounter Date Diagnosis (ICD Code) Assessment Notes Treatment Notes Treatment Clinical Notes Section Notes 06/08/2024 Hematuria (ICD-10 - R31.9) Plan Of Treatment Next Appt Details Provider Name:Danish Carbajal ierainer, 06/28/2024 08:15:00 AM, [address] [place] [address], [address] [facility], [place], [place], [phone], Provider Name:Danish heredia, 11/23/2024 10:00:00 AM, [address] [place] [address], [place] [address], [place], [place], [phone], Provider Name:Danish heredia, 05/12/2025 07:45:00 AM, [address] [place] [address], [address], [phone], Provider Name:Danish heredia, 05/20/2025 09:30:00 AM, [address] [place] [address], [address], [phone], Progress Notes * Torres AYERS RDOB:03/1950 (73 yo M)Acc No.[id number]:06/08/2024 Progress Note Patient:?Torres AYERS R Provider:?Dainsh Ashby MD :1950???Age:73 Y???Sex:Male Mathew e:06/08/2024 Address:[address] [place] [address] [address] [facility] [id number] Subjective: * Chief Complaints: * ???1. Repeat U/A. * Medical History:? Objective: * Vitals:? Assessment: * Assessment: 1.?Hematuria - R31.9 (Primar y)??? Plan: * Treatment: * * The named appointment provid er may or may not be the originator of this progress note, and it is not deemed complete until electronically signed by the appointment provider. Sign off status: Pending * Provider:?Danish Ashby MD Date:?0 06/08/2024 Generated for Monica robert/Gurinder/Caititting on:?06/17/2024 10:40 AM EDT
--- OUTSIDE RECORDS SUMMARY | 2024-06-17 10:41 | XMS_ITS | Encounter Summary ---
Author Organization [facility] Address [address] [place] [phone] Care Team Providers Care Diesel Mechanic Farm Name Role Phone Physician, Pcp Unknown Primary Care Provider Mechelle vailable Encounter Details Date Type Department Care Team (Late st Contact Info) Description 03/01/2024 Lab Requisition [facility] Lab [address] [facility] [place] [address] Luis Gregory MD [address] [place], [place] [phone] Malignant neoplasm of lateral wall of bladder [...] AM EST) Final Diagnosis A. Urine, Voided, ([id number]): Negative for high grade urothelial carcinoma. Results of U[employer] fluorescence in situ hybridization (FISH) testing: CEP3: Normal CEP7: Normal CEP17: Normal LSI 9p21: Normal Interpretation: Normal profile Controls stained appropriately. Note: The results are intended as a screening device and should be interpreted in association with other clinical and pathological findings. 03/12/2024 1:47 PM [facility] Clinical Information C67.2 - Malignant neoplasm of lateral wall of bladder Z85.51 - Personal history of malignant neoplasm of bladder Urine Cytology/FISH (now) 03/12/2024 1:47 PM [facility] Gross Description A. Urine, Voided, ([id number]): Received is one ThinPrep slide for cytology screen and one ThinPrep slide for UroVysion FISH 03/12/2024 1:47 PM [facility] Disclaimer Technical pathology services provided by [facility] at [address] [place] [address] [address], [place] [address] (CLIA #[id number]/Marisa Liu MD, Pin Ticket Machine Operator) Unless otherwise specified, all tissue is 10% NB formalin fixed and paraffin embedded. 03/12/2024 1:47 PM [facility] Tissue Urine specimen from urethra / Unknown 02/24/2024 03/01/2024 2:23 PM EST us Luis Gregory MD LAB PATHOLOGY ORDERABLES Fi nal Result [facility] [address] [place] [address], documented in this encounter Visit Diagnoses Diagnosis Malignant neoplasm of lateral wall of bladder (CMS/HCC V24, CMS/HCC V28) Malignant neoplasm of lateral wall of urinary bladder Personal history of malignant neoplasm of bladder documented in this encounter Care Teams Diesel Mechanic Farm Relationship Specialty Start Date End Date Physician, Pcp Unknown PCP - General 03/10/24 documented as of this encounter
--- OUTSIDE RECORDS SUMMARY | 2024-06-17 10:41 | XMS_ITS | Patient Health Record ---
Author Organization Danish Ashby MD Address [address] [place] [phone] Care Team Providers Care Geothermal Operations Manager Name Role Phone Danish Ashby Primary Care Provider Allergies Allergen (clinical drug ingredient) Drug/Non Drug Allergy documented on EMR Reaction Allergy Type Onset Date Status glue on bandaids (uncoded) galicia skin Allergy Active Results Component Value Reference Range Notes Complete Blood Count Auto Di ff Reviewed date:05/10/2024 04:37:48 PM Interpretation: Performing Lab:[facility], [address] [place] [phone] Notes/Report: White Blood Count 6.9 4.8-10.8 X10*3/uL [...] NRBC Abs Auto 0.000 0.0-0.012 X10*3/uL Comprehensive [place]. Panel Fa st Reviewed date:05/10/2024 04:37:29 PM Interpretation: Performing Lab:[facility], [address] [place] [phone] Notes/Report: Sodium 144 135-145 mmol/L Potassium 4.6 [...] 3.5-5.0 g/dL Alkaline Phosphatase 65 39-117 U/L Lipid Panel Reviewed date:05/10/2024 01:52:48 PM Interpretation: Performing Lab:[address] [phone] Notes/Report: Triglycerides 154 <150 mg/dL Desirable Triglyceride: [...] low results in patients with liver disease. PSA,Total (Free>4and<10) Reviewed date:05/17/2024 12:40:54 PM Interpretation:05-17-2024 Performing Lab:[address] [phone] Notes/Report: PSA,Total (Free>4and<10) 5.53 0.00-4.00 ng/mL PSA methodology: Morgan Alinity i Chemiluminescent Microparticle Immunoassay (CMIA) Microalbumin, Random Reviewed date:05/10/2024 01:52:21 PM Interpretation: Performing Lab:[address] [phone] Notes/Report: Creatinine Urine 121.68 Microalbumin Urine 39.0 Microalbum/Creatinine Ratio Ur 32.0 <30 ug/mg cr Albumin/Creatinine Ratio Reference Ranges: Normal: < 30 ug/mg creatinine Microalbuminuria: 30 - 300 ug/mg creatinine Clinical Albuminuria: > 300 ug/mg creatinine Hemoglobin A1c Reviewed date:05/10/2024 01:51:40 PM Interpretation: Performing Lab:[address] [phone] Notes/Report: Hemoglobin A1c % 5.9 <6.0 % [...] average glucose, using the formula of the Z7T-Ktercyb Average Glucose study (ADAG), Diabetes Care, Vol.31,#8, Sep. 2007 UA ClnCatch+Micro w/rflx Cul t Reviewed date:05/11/2024 09:13:40 AM Interpretation: Performing Lab:[facility], [address] [place] [phone] Notes/Report: Urine, Clean Catch Color Urine Yellow Appearance Urine Cloudy PH 5.5 5.0-9.0 Glucose Urine UA Negative Negative mg/dL Urine Blood Small (1+) Negative Specific [place] - Urine 1.020 1.005-1.025 Urine Protein Negative Neg-Trace mg/dL Urine Ketones Negative Negative mg/dL Nitrite Urine Positive Negative Leukocyte Esterase Urine Moderate (2+) Negative RBC Urine 3-5 0-2 /HPF WBC Urine 11-20 0-5 /HPF Squamous Epithelial Cell Urine 0-2 0-2 /HPF Bacteria Urine 3+ None Seen Hyaline Casts Urine 0-2 0-2 /LPF UA ClnCatch+Micro w/rflx Cul t Reviewed date:06/08/2024 12:40:12 PM Interpretation: Performing Lab:[facility], [address] [place] [phone] Notes/Report: Urine, Clean Catch Color Urine Yellow Appearance Urine Clear PH 5.0 5.0-9.0 Glucose Urine UA Negative Negative mg/dL Urine Blood Trace Negative Specific [place] - Urine 1.020 1.005-1.025 Urine Protein Negative Neg-Trace mg/dL Urine Ketones Trace Negative mg/dL Nitrite Urine Negative Negative Leukocyte Esterase Urine Small (1+) Negative RBC Urine 0-2 0-2 /HPF WBC Urine 21-50 0-5 /HPF Squamous Epithelial Cell Urine 0-2 0-2 /HPF Bacteria Urine 4+ None Seen Hyaline Casts Urine 0-2 0-2 /LPF PSA Free and Total Reviewed date:05/17/2024 12:41:03 PM Interpretation:CJ 05/17 Performing Lab:[facility], [address] [place] [phone] Notes/Report: Prostate Specific Ag Total 5.0 < OR = 4.0 ng/ mL Percent Free Prostate Spec Ag 10 >25 % (calc) PSA(ng/mL) Free PSA(%) Estimated(x) Probability of Cancer(as%) 0-2.5 (*) Approx. 1 2.6-4.0(1) 0-27(2) 24(3) 4.1-10(4) 0-10 56 11-15 28 16-20 20 21-25 16 >or =26 8 >10(+) N/A >50 References:(1)Phil et al.:Urology 60: 469-474 (2001) (2)Silvestreona et al.:J.Urol 168: 922-925 (2001) Free PSA(%) Sensitivity(%) Specificity(%) < or = 25 85 19 < or = 30 93 9 (3)Catalona et al.:AMELIA 277: 0304-6513 (1996) (4)Catalona et al.:AMELIA 279: 1078-7487 (1997) (x)These estimates vary with age, ethnicity, family history and EDWIN results. (*)The diagnostic usefulness of % Free PSA has not been established in patients with total PSA below 2.6 ng/mL (+)In men with PSA above 10 ng/mL, prostate cancer risk is determined by total PSA alone. The Total PSA value from this assay system is standardized against the equimolar PSA standard. The test result will be approximately 20% higher when compared to the WHO-standardized Total PSA (Siemens assay). Comparison of serial PSA results should be interpreted with this fact in mind. PSA was performed using the Day Edna Immunoassay method. Values obtained from different assay methods cannot be used interchangeably. PSA levels, regardless of value, should not be interpreted as absolute evidence of the presence or absence of disease. THIS TEST WAS PERFORMED AT: [facility] [address] [place] [phone] CELSO PEGUERO MD Free Prostate Spec Ag 0.5 Urine Culture Reviewed date:05/13/2024 01:17:15 PM Interpretation: Performing Lab:[facility], [address] [place] [phone] Notes/Report: O:KLEPNE Klebsiella pneumoniae Urine Culture Quant Urine Culture > 100,000 cfu/mL Ampicillin >=32 Cefazolin 4 Cefepime <=0.12 Ceftriaxone <=0.25 Ciprofloxacin 0.12 Gentamicin <=1 Nitrofurantoin 32 Trimethoprim/Sulfamethoxaz ole <=20 Urine Culture Reviewed date:06/10/2024 05:06:05 PM Interpretation: Performing Lab:[facility], [address] [place] [phone] Notes/Report: O:KLEPNE Klebsiella pneumoniae Urine Culture Quant Urine Culture > 100,000 cfu/mL Ampicillin >=32 Cefazolin 4 Cefepime <=0.12 Ceftriaxone <=0.25 Ciprofloxacin 0.12 Gentamicin <=1 Nitrofurantoin 32 Trimethoprim/Sulfamethoxaz ole <=20 Reason For Referral No Information Medications Medication SIG (Take, Route, Frequency, Duration) Notes Start Date End Date Status Lisinopril 20 MG TAKE 1 TABLET BY DEYSI TH EVERY DAY for 90 Not-Taking Cephalexin 500 MG 1 capsule Orally twi ce a day for 5 days 05/13/2024 Active Tamsulosin HCl 0.4 MG TAKE 1 CAPSULE BY MOUTH TWICE A DAY for 90 Active Cephalexin 500 MG 1 capsule Orally 3 t imes a day for 7 days 06/10/2024 Active Ibuprofen 800 MG 1 tablet Orally Thre e times a day for 30 day(s) 09/12/2011 Not-Ta ryley Indomethacin 50 MG 1 capsule with food Orally Three times a day for 10 days 10/24/2014 Not-Taking Immunizations Vaccine Route Administration Date Status Comme nts Flu Vaccine Unknown 12/20/2013 Administered [facility], work Flu Vaccine Unknown 12/12/2014 Administered At work Fluarix Quadrivalent IM Intramuscular 10/24/2017 Administabhishek bell pt was given the vaccine at [facility] in [place]. Prevnar 13 IM Intramuscular 02/13/2018 Administered Influenza High Dose IM Intramuscular 12/21/2018 Administer ed pt was given the vaccine at [facility] in [place]. PPSV23 (Pnemovax) IM Intramuscular 02/15/2019 Administered Influenza High Dose IM Intramuscular 10/19/2019 Administer ed SARS-COV-2 Moderna Unknown 05/03/2020 Administered SARS-COV-2 Moderna Unknown 06/02/2020 Administered Influenza High Dose Unknown 12/24/2021 Administered [facility] Social History Tobacco Use: Social History Observation Description Date Details (start date - stop date) Former Smoker NA - NA Tobacco Use/Smoking Question Answer Notes Patient is a former smoker How long has it been since y ou last smoked? > 10 years Additional Findings: Tobacco Non-User Fo rmer smoker, currently using no form of tobacco Alcohol Screen Question Answer Notes Did you have a drink contain ing alcohol in the past year? Yes How often did you have a dri nk containing alcohol in the past year? 2 to 3 times a week (3 points) How many drinks did you have on a typical day when you were drinking in the past year? 1 or 2 drinks (0 point) How often did you have 6 or more drinks on one occasion in the past year? Never (0 point) Points 3 Interpretation Negative Problems Problem Type SNOMED Code ICD Code Onset Dates Problem Status W/U Status Risk Notes Problem Back pain (348092443) Back pain (M54.9) Active confirmed Problem 42188960 Prostatism (N40.0) Active confirmed Problem 50135538 Depression (F32.9) Active confirmed Problem 541817931 Lumbar disc disease (M51.9) Active confirmed Problem 59638683 Essential hypertension (I10) Active confirmed Problem 2387623 Prediabetes (R73.09) Active confirmed Problem Bladder cancer (976890524) Bladder cancer (C67.9) Active confirmed Problem 325979614 Morbid obesity due to excess calories (E66.01) Active confirmed Problem 263554387 History of hematuria (Z87.448) Active confirmed Problem Obstructive sleep apnea (84318635) Obstructive sleep apnea (G47.33) Active confirmed Problem 51312863 Dysthymia (F34.1) Active confirmed Problem 3950918447678441 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) Active confirmed Problem 7043600344695 Bilateral nonpulsatile tinnitus (H93.13) Active confirmed Vital Signs Blood pressure diastolic 80 mm Hg 05/17/2024 aidan ght is up 5 pounds since 05-12-23 Height 67.5 in 05/17/2024 weight is up 5 pounds since 05-12-23 Blood pressure systolic 142 mm Hg 05/17/2024 aidang ht is up 5 pounds since 05-12-23 Weight 284 lbs 05/17/2024 weight is up 5 pounds since 05-12-23 BMI 43.82 kg/m2 05/17/2024 weight is up 5 pounds since 05-12-23 Encounters Encounter Location Date Provider Diagnosis Danish Ashby MD [address] [place] [id number] 05/10/2024 Danish Ashby Essential hypertension I10 ; Prostatism N40.0 and Prediabetes R73.09 Danish Ashby MD [address] [place] [id number] 06/08/2024 Danish Ashby Hematuria R31.9 Danish Ashby MD [address] [place] [id number] 06/17/2024 Danish Ashby Bladder cancer C67.9 and UTI (urinary tract infection) N39.0 Danish Ashby MD [address] [place] [id number] 05/17/2024 Danish Ashby Bladder cancer C67.9 ; Elevated PSA R97.20 ; Essential hypertension I10 ; Prediabetes R73.09 and Morbid obesity due to excess calories E66.01 Danish Ashby MD [address] [place] [id number] 10/30/2023 Danish Ashby MD [address] [place] [address] [id number] 05/13/2024 Danish Ashby MD [address] [place] [address] [id number] 05/13/2024 Danish Ashby MD [address] [place] [address] [id number] 11/09/2023 Danish Ashby MD [address] [place] [address] [id number] 11/14/2023 Danish Ashby MD [address] [place] [id number] 03/04/2024 Danish Ashby MD [address] [place] [address] [id number] 06/07/2024 Danish Ashby MD [address] [facility] [address] [place] [id number] 06/10/2024 Danish Ashby Assessments Encounter Date Diagnosis (ICD Code) Assessment Notes Treatment Notes Treatment Clinical Notes Section Notes 05/10/2024 Essential hypertension (ICD-10 - I10) 06/08/2024 Hematuria (ICD-10 - R31.9) 06/17/2024 Bladder cancer (ICD-10 - C67.9) 05/17/2024 Bladder cancer (ICD-10 - C67.9) pending labs 05/17/2024 Elevated PSA (ICD-10 - R97.20) will continue to monitor , lab ordered 05/10/2024 Prostatism (ICD-10 - N40.0) 06/17/2024 UTI (urinary tract infection) (ICD-10 - N39.0) 05/17/2024 Essential hypertension (ICD-10 - I10) doing well, will continue current regiment 05/10/2024 Prediabetes (ICD-10 - R73.09) 05/17/2024 Prediabetes (ICD-10 - R73.09) stable, no need for medication at this time 05/17/2024 Morbid obesity due to excess calories (ICD-10 - E66.01) to discuss meds Plan Of Treatment Pending Test Test Name Order Date Electrocardiogram (EKG) 02/13/2018 Electrocardiogram (EKG) 07/02/2012 Electrocardiogram (EKG) 12/13/2016 NUC WHOLE BODY SCAN BONE 11/09/2012 UA ClnCatch+Micro w/rflx Cult 06/17/2024 PSA,Total (Free>4and<10) 06/17/2024 Next Appt Details Provider Name:Danish heredia, 06/28/2024 08:15:00 AM, [address] [facility], [address] [facility], [place], [place], [phone], Provider Name:Danish heredia, 11/23/2024 10:00:00 AM, [address] [facility], [address], [place], [place], [phone], Provider Name:Danish Carbajal ier, 05/12/2025 07:45:00 AM, [address] [place] [address], [address], [place], [place], [phone], Provider Name:Danish Carbajal ier, 05/20/2025 09:30:00 AM, [address] [place] [address], [address], [place], [place], [id number], Insurance Providers Payer Name Payer Address Payer Phone Subscriber Number Group Number Insured Name Patient Relationship to Insured Coverage Start Date Coverage End Date [employer] [address] [place] [address] [id number] Torres Lao Self - patient is the insured [facility] [address] [place], [place] [id number] [phone] [id number] Torres Lao Self - patient is the insured 8 Medical (General) History Medical History History ICD Code hematuria work up in 2006 colonoscopy 03/2011 negative - Dr. Pena (repeat 10 years):11/12/22 Colonoscopy repeat 10 years
[2024-06-17 10:43] LABS: PSA,Total (Free>4and<10) 4.01 ng/mL (0.00-4.00)
[2024-06-18 10:33] LABS: Free Prostate Spec Ag 0.5 ng/mL; Percent Free Prostate Spec Ag 13 % (calc) (>25); Prostate Specific Ag Total 3.8 ng/mL (< OR = 4.0)
== END 2024-06-17 09:50 | disposition home or self-care (01) ==
LOC: HO.LNP 09:49
PROVIDERS: Visit Provider Internal Medicine
DX: Z12.5 Encounter for screening for malignant neoplasm of prostate (principal); C67.9 Malignant neoplasm of bladder, unspecified; N39.0 Urinary tract infection, site not specified
CPT/HCPCS: 84153; 84154

== ENCOUNTER 2024-06-28 10:53 | Outpatient (REF) | payer MEDICARE, SELFPAY ==
[2024-06-28 11:01] LABS: Appearance Urine Clear; Color Urine Yellow; Glucose Urine UA Negative (Negative); Leukocyte Esterase Urine Small (1+) (Negative); Nitrite Urine Negative (Negative); Specific Gravity - Urine >= 1.030 (1.005-1.025); UMIC TRIGGER UACC YES; Urine Blood Trace (Negative); Urine Ketones Trace mg/dL (Negative); Urine Protein Negative (Neg-Trace)
[2024-06-28 11:03] LABS: Bacteria Urine None Seen (None Seen); Hyaline Casts Urine 0-2 /LPF (0-2); RBC Urine 0-2 /HPF (0-2); Squamous Epithelial Cell Urine 0-2 /HPF (0-2); UACC Culture Trigger YES
--- OUTSIDE RECORDS SUMMARY | 2024-06-28 11:32 | XMS_ITS | Patient Health Record ---
Author Organization [facility] Address [address] [place] [phone] Care Team Providers Care Emergency Medicine Name Role Phone Symone CHOUDHARY, Danish Primary [...] Problem Status W/U Status Risk Notes Problem 313338774 Colon cancer screening (Z12.11) Active confirmed Plan Of Treatment Future Test Test Name Order Date COLONOSCOPY CONTROL OF BLEEDING ANY METH OD 10/24/2022 COLONOSCOPY 10/24/2022 Insurance Providers Payer Name Payer Address Payer Phone Subscriber Number Group Number Insured Name Patient Relationship to Insured Coverage Start Date Coverage End Date MEDICARE OF [place] [address] [place] [address] [phone] [id number] JANE ISRAEL Self - patient is the insured [employer] [address] [place] [address] [id number] JANE ISRAEL Self - patient is the insured Medical (General) History Medical History History ICD Code Gastroesophageal reflux disease Insomnia Colonoscopy 03/24, lymphoid polyp, ten-ye ar followup Back pain Arthritis Elevated PSA Surgical History Surgery Date(Month/Year) bilateral hip replacement shoulder surgery lower back x2 bilateral knees
--- OUTSIDE RECORDS SUMMARY | 2024-06-28 11:32 | XMS_ITS | Clinical Summary ---
Author Organization [facility] Address [address] [place] [address] Phone Care Team Providers Care Piano Tuner Name Role Phone Physician, Pcp Unknown Primary [...] age to complete this topic Insurance MEDICARE [facility] Care Teams Piano Tuner Relationship Specialty Start Date End Date Physician, Pcp Unknown PCP - General 03/10/24
--- OUTSIDE RECORDS SUMMARY | 2024-06-28 11:33 | XMS_ITS ---
Author Organization Danish Ashby MD Address [address] [place] [phone] Care Team Providers Care Merchant Patroller Name Role Phone Danish Ashby Primary Care Provider REASON FOR VISIT Urine Test Medications Medication SIG (Take, Route, Fr equency, Duration) Notes Start Date End Date Status Cephalexin 500 MG 1 capsule Orally 3 t imes a day for 7 days 06/10/2024 Active Encounters Encounter Location Date Provider Diagnosis Danish Ashby MD [address] [place], [place] [id number] 06/10/2024 Danish Ashby Plan Of Treatment Medication Medication Name Sig Start Date Stop Date Notes Cephalexin 500 MG 1 capsule Orally 3 t imes a day for 7 days 06/10/2024 Next Appt Details Provider Name:Danish heredia, 08/19/2024 08:45:00 AM, [address], [address], [place], [place], [phone], Provider Name:Danish Carbajal ier, 11/23/2024 10:00:00 AM, [address] [facility] [address], [address], [place], [phone], Provider Name:Danish Carbajal ier, 05/12/2025 07:45:00 AM, [address] [facility] [address], [address], [place], [phone], Provider Name:Danish Carbajal ier, 05/20/2025 09:30:00 AM, [address] [place] [address] Drive, [address], [place], [phone], Progress Notes * Torres AYERS RDOB:03/1950 (73 yo M)Acc No.[id number]:06/10/2024 Patient:?Torres AYERS :1950???Age:73 Y???Sex:Male Address:[address] [place] [address] [address], [place] [address] * Refills? Start Cephalexin Capsule, 500 MG, Orally, 21 Capsule, 1 capsule, 3 times a day, 7 days * true * Date:? Generated for Monica robert/Gurinder/eTransmitting on:?06/28/2024 11:32 AM EDT
--- OUTSIDE RECORDS SUMMARY | 2024-06-28 11:33 | XMS_ITS | Patient Health Record ---
Author Organization Danish Ashby MD Address [address] [place] [phone] Care Team Providers Care Ingot Passer Name Role Phone Danish Ashby Primary Care Provider [phone] Allergies Allergen (clinical drug ingredient) Drug/Non Drug Allergy documented on EMR Reaction Allergy Type Onset Date Status glue on bandaids (uncoded) galicia skin Allergy Active Results Component Value Reference Range Notes Complete Blood Count Auto Di ff Reviewed date:05/10/2024 04:37:48 PM Interpretation: Performing Lab:[facility], [address] [place] [phone] Notes/Report: White Blood Count 6.9 4.8-10.8 X10*3/uL [...] NRBC Abs Auto 0.000 0.0-0.012 X10*3/uL Comprehensive [place]. Panel Fa st Reviewed date:05/10/2024 04:37:29 PM Interpretation: Performing Lab:[facility], [address] [place] [phone] Notes/Report: Sodium 144 135-145 mmol/L Potassium 4.6 [...] Reviewed date:05/10/2024 01:52:48 PM Interpretation: Performing Lab:[address] [phone] Notes/Report: Triglycerides 154 <150 mg/dL Desirable Triglyceride: [...] Reviewed date:05/17/2024 12:40:54 PM Interpretation:05-17-2024 Performing Lab:[address] [address] Notes/Report: PSA,Total (Free>4and<10) 5.53 0.00-4.00 ng/mL PSA methodology: Morgan Alinity i Chemiluminescent Microparticle Immunoassay (CMIA) Microalbumin, Random Reviewed date:05/10/2024 01:52:21 PM Interpretation: Performing Lab:[address] [phone] Notes/Report: Creatinine Urine 121.68 Microalbumin Urine 39.0 Microalbum/Creatinine Ratio Ur 32.0 <30 ug/mg cr Albumin/Creatinine Ratio Reference Ranges: Normal: < 30 ug/mg creatinine Microalbuminuria: 30 - 300 ug/mg creatinine Clinical Albuminuria: > 300 ug/mg creatinine Hemoglobin A1c Reviewed date:05/10/2024 01:51:40 PM Interpretation: Performing Lab:[address] [phone] Notes/Report: Hemoglobin A1c % 5.9 <6.0 % [...] average glucose, using the formula of the U7L-Lrhernp Average Glucose study (ADAG), Diabetes Care, Vol.31,#8, Sep. 2007 UA ClnCatch+Micro w/rflx Cul t Reviewed date:05/11/2024 09:13:40 AM Interpretation: Performing Lab:[facility], [address] [place] [phone] Notes/Report: Urine, Clean Catch Color Urine Yellow Appearance Urine Cloudy PH 5.5 5.0-9.0 Glucose Urine UA Negative Negative mg/dL Urine Blood Small (1+) Negative Specific [place] - Urine 1.020 1.005-1.025 Urine Protein Negative Neg-Trace mg/dL Urine Ketones Negative Negative mg/dL Nitrite Urine Positive Negative Leukocyte Esterase Urine Moderate (2+) Negative RBC Urine 3-5 0-2 /HPF WBC Urine 11-20 0-5 /HPF Squamous Epithelial Cell Urine 0-2 0-2 /HPF Bacteria Urine 3+ None Seen Hyaline Casts Urine 0-2 0-2 /LPF UA ClnCatch+Micro w/rflx Cul t Reviewed date:06/08/2024 12:40:12 PM Interpretation: Performing Lab:[facility], [address] [place] [phone] Notes/Report: Urine, Clean Catch Color Urine Yellow Appearance Urine Clear PH 5.0 5.0-9.0 Glucose Urine UA Negative Negative mg/dL Urine Blood Trace Negative Specific [place] - Urine 1.020 1.005-1.025 Urine Protein Negative Neg-Trace mg/dL Urine Ketones Trace Negative mg/dL Nitrite Urine Negative Negative Leukocyte Esterase Urine Small (1+) Negative RBC Urine 0-2 0-2 /HPF WBC Urine 21-50 0-5 /HPF Squamous Epithelial Cell Urine 0-2 0-2 /HPF Bacteria Urine 4+ None Seen Hyaline Casts Urine 0-2 0-2 /LPF PSA,Total (Free>4and<10) Reviewed date:06/17/2024 12:33:54 PM Interpretation: Performing Lab:[address] [phone] Notes/Report: PSA,Total (Free>4and<10) 4.01 0.00-4.00 ng/mL PSA methodology: Morgan Alinity i Chemiluminescent Microparticle Immunoassay (CMIA) UA ClnCatch+Micro w/rflx Cul t (Not yet reviewed by provider) Interpretation: Performing Lab:[address] [phone] Notes/Report: Urine, Clean Catch Color Urine Yellow Appearance Urine Clear PH 5.0 5.0-9.0 Glucose Urine UA Negative Negative mg/dL Urine Blood Trace Negative Specific [place] - Urine >= 1.030 1.005-1.025 Urine Protein Negative Neg-Trace mg/dL Urine Ketones Trace Negative mg/dL Nitrite Urine Negative Negative Leukocyte Esterase Urine Small (1+) Negative RBC Urine 0-2 0-2 /HPF WBC Urine 6-10 0-5 /HPF Squamous Epithelial Cell Urine 0-2 0-2 /HPF Bacteria Urine None Seen None Seen Hyaline Casts Urine 0-2 0-2 /LPF PSA Free and Total Reviewed date:05/17/2024 12:41:03 PM Interpretation:CJ 05/17 Performing Lab:[address] [phone] Notes/Report: Prostate Specific Ag Total 5.0 < OR = 4.0 ng/ mL Percent Free Prostate Spec Ag 10 >25 % (calc) PSA(ng/mL) Free PSA(%) Estimated(x) Probability of Cancer(as%) 0-2.5 (*) Approx. 1 2.6-4.0(1) 0-27(2) 24(3) 4.1-10(4) 0-10 56 11-15 28 16-20 20 21-25 16 >or =26 8 >10(+) N/A >50 References:(1)Phil et al.:Urology 60: 469-474 (2002) (2)Phil et al.:J.Urol 168: 922-925 (2001) Free PSA(%) Sensitivity(%) Specificity(%) < or = 25 85 19 < or = 30 93 9 (3)Catalona et al.:AMELIA 277: 1445-9244 (1996) (4)Catalona et al.:AMELIA 279: 6907-2896 (1997) (x)These estimates vary with age, ethnicity, [...] of disease. THIS TEST WAS PERFORMED AT: [facility] [address] [phone] CELSO PEGUERO MD Free Prostate Spec Ag 0.5 Urine Culture Reviewed date:05/13/2024 01:17:15 PM Interpretation: Performing Lab:[address] [address] Notes/Report: O:KLEPNE Klebsiella pneumoniae Urine Culture Quant Urine Culture > 100,000 cfu/mL Ampicillin >=32 Cefazolin 4 Cefepime <=0.12 Ceftriaxone <=0.25 Ciprofloxacin 0.12 Gentamicin <=1 Nitrofurantoin 32 Trimethoprim/Sulfamethoxaz ole <=20 Urine Culture Reviewed date:06/10/2024 05:06:05 PM Interpretation: Performing Lab:[address] [address] Notes/Report: O:KLEPNE Klebsiella pneumoniae Urine Culture Quant Urine Culture > 100,000 cfu/mL Ampicillin >=32 Cefazolin 4 Cefepime <=0.12 Ceftriaxone <=0.25 Ciprofloxacin 0.12 Gentamicin <=1 Nitrofurantoin 32 Trimethoprim/Sulfamethoxaz ole <=20 PSA Free and Total Reviewed date:06/18/2024 12:30:44 PM Interpretation: Performing Lab:[facility], [address] [place] [phone] Notes/Report: Prostate Specific Ag Total 3.8 < OR = 4.0 ng/ mL Percent Free Prostate Spec Ag 13 >25 % (calc) PSA(ng/mL) Free PSA(%) Estimated(x) Probability of Cancer(as%) 0-2.5 (*) Approx. 1 2.6-4.0(1) 0-27(2) 24(3) 4.1-10(4) 0-10 56 11-15 28 16-20 20 21-25 16 >or =26 8 >10(+) N/A >50 References:(1)Phil et al.:Urology 60: 469-474 (2001) (2)Phil et al.:J.Urol 168: 922-925 (2001) Free PSA(%) Sensitivity(%) Specificity(%) < or = 25 85 19 < or = 30 93 9 (3)Catalona et al.:AMELIA 277: 9802-7850 (1996) (4)Catalona et al.:AMELIA 279: 8194-2549 (1997) (x)These estimates vary with age, ethnicity, [...] of disease. THIS TEST WAS PERFORMED AT: [facility] [address] [place] [phone] CELSO PEGUERO MD Free Prostate Spec Ag 0.5 Reason For Referral No Information Medications Medication [...] Immunizations Vaccine Route Administration Date Status [facility] Flu Vaccine Unknown 12/20/2013 Administered [facility], [facility] Flu Vaccine Unknown 12/12/2014 Administered At work Fluarix Quadrivalent IM Intramuscular 10/24/2017 Administe red pt was given the vaccine at [facility] in [place]. Prevnar 13 IM Intramuscular 02/13/2018 Administered Influenza High Dose IM Intramuscular 12/21/2018 Administer ed pt was given the vaccine at [facility] in [place]. PPSV23 (Pnemovax) IM Intramuscular 02/15/2019 Administered Influenza High Dose IM Intramuscular 10/19/2019 Administer ed SARS-COV-2 Moderna Unknown 05/03/2020 Administered SARS-COV-2 Moderna Unknown 06/02/2020 Administered Influenza High Dose Unknown 12/24/[address] [facility] Social History Tobacco Use: Social History Observation [...] W/U Status Risk Notes Problem Back pain (035221470) Back pain (M54.9) Active confirmed Problem 10658560 Prostatism (N40.0) Active confirmed Problem 51180292 Depression (F32.9) Active confirmed Problem 230742392 Lumbar disc disease (M51.9) Active confirmed Problem 41347014 Essential hypertension (I10) Active confirmed Problem 5202893 Prediabetes (R73.09) Active confirmed Problem Bladder cancer (797907870) Bladder cancer (C67.9) Active confirmed Problem 297946664 Morbid obesity due to excess calories (E66.01) Active confirmed Problem 449450688 History of hematuria (Z87.448) Active confirmed Problem Obstructive sleep apnea (86355504) Obstructive sleep apnea (G47.33) Active confirmed Problem 88899743 Dysthymia (F34.1) Active confirmed Problem 1040084656435748 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) Active confirmed Problem 2691156929631 Bilateral nonpulsatile tinnitus (H93.13) Active confirmed Vital Signs Blood pressure diastolic 80 mm Hg 05/17/2024 aidan ght is up 5 pounds since 05-12-23 Height 67.5 in 05/17/2024 weight is up 5 pounds since 05-12-23 Blood pressure systolic 142 mm Hg 05/17/2024 weig ht is up 5 pounds since 05-12-23 Weight 284 lbs 05/17/2024 weight is up 5 pounds since 05-12-23 BMI 43.82 kg/m2 05/17/2024 weight is up 5 pounds since 05-12-23 Encounters Encounter Location Date Provider Diagnosis Danish Ashby MD [address] [place] [id number] 05/10/2024 Danish Ashby Essential hypertension I10 ; Prostatism N40.0 and Prediabetes R73.09 Danish Ashby MD [address] [place] [address] Drive [address] [place] [id number] 06/08/2024 Danish Ashby Hematuria R31.9 Danish Ashby MD [address] [place] [address] Drive [address] [place] [id number] 06/17/2024 Danish Ashby Bladder cancer C67.9 and UTI (urinary tract infection) N39.0 Danish Ashby MD [address] [place] [id number] 06/28/2024 Danish Ashby Aftercare Z51.89 Danish Ashby MD [address] [place] [id number] 05/17/2024 Danish Ashby Bladder cancer C67.9 ; Elevated PSA R97.20 ; Essential hypertension I10 ; Prediabetes R73.09 and Morbid obesity due to excess calories E66.01 Danish Ashby MD [address] [place] [id number] 10/30/2023 Danish Ashby MD [address] [place] [id number] 05/13/2024 Danish Ashby MD [address] [place] [id number] 05/13/2024 Danihs Ashby MD [address] [place] [id number] 11/09/2023 Danish Ashby MD [address] [place] [id number] 11/14/2023 Danish Ashby MD [address] [place] [address] [id number] 03/04/2024 Danish Ashby MD [address] [place] [id number] 06/07/2024 Danish Ashby MD [address] [place] [id number] 06/10/2024 Danish Ashby Assessments Encounter Date Diagnosis (ICD Code) Assessment Notes Treatment Notes Treatment Clinical Notes Section Notes 05/10/2024 Essential hypertension (ICD-10 - I10) 06/08/2024 Hematuria (ICD-10 - R31.9) 06/17/2024 Bladder cancer (ICD-10 - C67.9) 06/17/2024 UTI (urinary tract infection) (ICD-10 - N39.0) 06/28/2024 Aftercare (ICD-10 - Z51.89) 05/17/2024 Bladder cancer (ICD-10 - C67.9) pending labs 05/17/2024 Elevated PSA (ICD-10 - R97.20) will continue to monitor , lab ordered 05/10/2024 Prostatism (ICD-10 - N40.0) 05/17/2024 Essential hypertension (ICD-10 - I10) doing [...] SCAN BONE 11/09/2012 UA ClnCatch+Micro w/rflx Cult 06/28/2024 UA ClnCatch+Micro w/rflx Cult 06/17/2024 Next Appt Details Provider Name:Danish heredia, 08/19/2024 08:45:00 AM, [address] [place] [address], [phone], Provider Name:Danish heredia, 11/23/2024 10:00:00 AM, [address] [place] [address], [phone], Provider Name:Danish masr, 05/12/2025 07:45:00 AM, [address] [place] [address], [address], [phone], Provider Name:Danish masr, 05/20/2025 09:30:00 AM, [address] [place] [address], [phone], Insurance Providers Payer Name Payer Address Payer Phone Subscriber Number Group Number Insured Name Patient Relationship to Insured Coverage Start Date Coverage End Date [employer] [address] [place] [address] [id number] Torres Lao Self - patient is the insured [facility] AND [facility] [address] [place], [place] [phone] [id number] Torres Lao Self - patient is the insured 8 Medical (General) History Medical History History ICD Code hematuria work up in 2006 colonoscopy 03/2011 negative - Dr. Pena (repeat 10 years):11/12/22 Colonoscopy repeat 10 years
--- OUTSIDE RECORDS SUMMARY | 2024-06-28 11:33 | XMS_ITS ---
Author Organization Danish Ashby MD Address [address] [place], [place] [phone] Care Team Providers Care Manager Surgery Name Role Phone Danish Ashby Primary Care Provider [phone] Results Component Value Reference Range Notes UA ClnCatch+Micro w/rflx Cul t (Not yet reviewed by provider) Interpretation: Performing Lab:[facility] [place], [address] [place] [phone] Notes/Report: Urine, Clean Catch Color Urine Yellow Appearance Urine Clear PH 5.0 5.0-9.0 Glucose Urine UA Negative Negative mg/dL Urine Blood Trace Negative Specific [place] - Urine >= 1.030 1.005-1.025 Urine Protein Negative Neg-Trace mg/dL Urine Ketones Trace Negative mg/dL Nitrite Urine Negative Negative Leukocyte Esterase Urine Small (1+) Negative RBC Urine 0-2 0-2 /HPF WBC Urine 6-10 0-5 /HPF Squamous Epithelial Cell Urine 0-2 0-2 /HPF Bacteria Urine None Seen None Seen Hyaline Casts Urine 0-2 0-2 /LPF REASON FOR VISIT After Care U/A Encounters Encounter Location Date Provider Diagnosis Danish Ashby MD [address] [place] [id number] 06/28/2024 Danish Ashby Aftercare Z51.89 Assessments Encounter Date Diagnosis (ICD Code) Assessment Notes Treatment Notes Treatment Clinical Notes Section Notes 06/28/2024 Aftercare (ICD-10 - Z51.89) Plan Of Treatment Pending Test Test Name Order Date UA ClnCatch+Micro w/rflx Cult 06/28/2024 Next Appt Details Provider Name:Danish Carbajal ier, 08/19/2024 08:45:00 AM, [address] [place] [address], Suite [facility], [place], [place], [phone], Provider Name:Danish heredia, 11/23/2024 10:00:00 AM, [address] [place] [address], Suite [facility], [place], [place], [phone], Provider Name:Danish heredia, 05/12/2025 07:45:00 AM, [address] [place] [address], Suite [facility], [place], [place], [phone], Provider Name:Danish heredia, 05/20/2025 09:30:00 AM, [address] [place] [address], Suite [facility], [place], [place], [phone], Progress Notes * Torres AYERS RDOB:03/1950 (73 yo M)Acc No.[id number]:06/28/2024 Progress Note Patient:?Torres AYERS Provider:?Danish Ashby MD :1950???Age:73 Y???Sex:Male Mathew e:06/28/2024 Address:[address] [place], [place] [address]Veto [id number] Subjective: * Chief Complaints: * ???1. After Care U/A. * Medical History:? Objective: * Vitals:? Assessment: * Assessment: 1.?Aftercare - Z51.89??? Plan: * Treatment: * * The named appointment provid er may or may not be the originator of this progress note, and it is not deemed complete until electronically signed by the appointment provider. Sign off status: Pending * Provider:?Danish Ashby MD Date:?0 06/28/2024 Generated for Monica robert/Gurinder/Caititting on:?06/28/2024 11:32 AM EDT
--- OUTSIDE RECORDS SUMMARY | 2024-06-28 11:33 | XMS_ITS ---
Author Organization Danish Ashby MD Address [address] [place] [phone] Care Team Providers Care Giant Tire Repairer Name Role Phone Symone Danish Primary Care Provider [phone] Results Component Value Reference Range Notes PSA,Total (Free>4and<10) Reviewed date:06/17/2024 12:33:54 PM Interpretation: Performing Lab:[facility], [address] [place] [phone] Notes/Report: PSA,Total (Free>4and<10) 4.01 0.00-4.00 ng/mL PSA methodology: Morgan Alinity i Chemiluminescent Microparticle Immunoassay (CMIA) REASON FOR VISIT PSA and After Care UA Encounters Encounter Location Date Provider Diagnosis Danish Ashby MD [address] [place], [place] [phone] 06/17/2024 Danish Ashby Bladder cancer C67.9 and UTI (urinary tract infection) N39.0 Assessments Encounter Date Diagnosis (ICD Code) Assessment Notes Treatment Notes Treatment Clinical Notes Section Notes 06/17/2024 Bladder cancer (ICD-10 - C67.9) 06/17/2024 UTI (urinary tract infection) (ICD-10 - N39.0) Plan Of Treatment Pending Test Test Name Order Date UA ClnCatch+Micro w/rflx Cult 06/17/2024 Next Appt Details Provider Name:Danish Carbajal ier, 08/19/2024 08:45:00 AM, [address], [place], [place], [phone], Provider Name:Danish Carbajal ier, 11/23/2024 10:00:00 AM, [address] [place] [address], Suite [facility], [place], [place], [phone], Provider Name:Danish Carbajal ier, 05/12/2025 07:45:00 AM, [address] [place] [address], Suite [facility], [place], [place], [phone], Provider Name:Danish Carbajal ier, 05/20/2025 09:30:00 AM, [address] [place] [address], [address], [place], [place], [phone], Progress Notes * Torres AYERS RDOB:03/1950 (73 yo M)Acc No.[id number]:06/17/2024 Progress Note Patient:?Torres AYERS Chad Provider:?Danish Ashby MD :1950???Age:73 Y???Sex:Male Mathew e:06/17/2024 Address:[address] [place] [address], [id number] Subjective: * Chief Complaints: * ???1. PSA and After Care UA. * Medical History:? Objective: * Vitals:? Assessment: * Assessment: 1.?Bladder cancer - C67.9 (P rimary)???2.?UTI (urinary tract infection) - N39.0??? Plan: * Treatment: 2.?UTI (urinary tract infect ion)?LAB: UA ClnCatch+Micro w/rflx Cult * Procedure Codes:?34873 VENIP UNCT, ROUTINE* * * The named appointment provid er may or may not be the originator of this progress note, and it is not deemed complete until electronically signed by the appointment provider. Sign off status: Pending * Provider:?Danish Ashby MD Date:?0 06/17/2024 Generated for Monica robert/Gurinder/Caititting on:?06/28/2024 11:32 AM EDT
--- OUTSIDE RECORDS SUMMARY | 2024-06-28 11:33 | XMS_ITS | Encounter Summary ---
Author Organization [facility] Address [address] [place] [phone] Care Team Providers Care Truck Body Repairer Name Role Phone Physician, Pcp Unknown Primary Care Provider Mechelle vailable Encounter Details Date Type Department Care Team (Late st Contact Info) Description 03/01/2024 Lab Requisition [facility] Lab [address] [facility] [place] [address] Luis Gregory MD [address] [place], [place] [phone] Malignant neoplasm of lateral wall of bladder [...] AM EST) Final Diagnosis A. Urine, Voided, ([id number]): Negative for high grade urothelial carcinoma. Results of UroVysion fluorescence in situ hybridization (FISH) testing: CEP3: Normal CEP7: Normal CEP17: Normal LSI 9p21: Normal Interpretation: Normal profile Controls stained appropriately. Note: The results are intended as a screening device and should be interpreted in association with other clinical and pathological findings. 03/12/2024 1:47 PM [facility] Clinical Information C67.2 - Malignant neoplasm of lateral wall of bladder Z85.51 - Personal history of malignant neoplasm of bladder Urine Cytology/FISH (now) 03/12/2024 1:47 PM [facility] Gross Description A. Urine, Voided, ([id number]): Received is one ThinPrep slide for cytology screen and one ThinPrep slide for UroVysion FISH 03/12/2024 1:47 PM [facility] Disclaimer Technical pathology services provided by [facility] at [address] [place] [address] [address], [place] [address] (CLIA #[id number]/Marisa Liu MD, Planning Aide) Unless otherwise specified, all tissue is 10% NB formalin fixed and paraffin embedded. 03/12/2024 1:47 PM [facility] Tissue Urine specimen from urethra / Unknown 02/24/2024 03/01/2024 2:23 PM EST us Luis Gregory MD LAB PATHOLOGY ORDERABLES Fi nal Result [facility] [address] [place] [address], documented in this encounter Visit Diagnoses Diagnosis Malignant neoplasm of lateral wall of bladder (CMS/HCC V24, CMS/HCC V28) Malignant neoplasm of lateral wall of urinary bladder Personal history of malignant neoplasm of bladder documented in this encounter Care Teams Truck Body Repairer Relationship Specialty Start Date End Date Physician, Pcp Unknown PCP - General 03/10/24 documented as of this encounter
== END 2024-06-28 10:54 | disposition home or self-care (01) ==
LOC: HO.LNP 10:53
PROVIDERS: Visit Provider Internal Medicine
DX: Z51.89 Encounter for other specified aftercare (principal); R82.90 Unspecified abnormal findings in urine
CPT/HCPCS: 81001; 87086

== ENCOUNTER 2024-08-19 12:01 | Outpatient (REF) | payer MEDICARE, SELFPAY ==
--- OUTSIDE RECORDS SUMMARY | 2024-08-19 04:45 | XMS_ITS ---
Author Organization Danish Ashby MD Address [address] [place] [phone] Care Team Providers Care Real Estate Job Titles Name Role Phone Danish Ashby Primary Care Provider REASON FOR VISIT 2 month repeat PSA Encounters Encounter Location Date Provider Diagnosis Danish Ashby MD [address] [place] [phone] 08/19/2024 Danish Ashby Prostatism N40.0 Assessments Encounter Date Diagnosis (ICD Code) Assessment Notes Treatment Notes Treatment Clinical Notes Section Notes 08/19/2024 Prostatism (ICD-10 - N40.0) Plan Of Treatment Pending Test Test Name Order Date PSA,Total (Free>4and<10) 08/19/2024 Next Appt Details Provider Name:Danish heredia, 11/23/2024 10:00:00 AM, [address], [address], [place], [place], [phone], Provider Name:Danish Carbajal ier, 05/12/2025 07:45:00 AM, [address], [address], [place], [phone], Provider Name:Danish Carbajal ier, 05/20/2025 09:30:00 AM, [address], [address], [place], [phone], Progress Notes * Torres AYERS RDOB:03/1950 (73 yo M)Acc No.[id number]:08/19/2024 Progress Note Patient: Torres NUGENT Provider: Jean Ashby MD :1950 A ge:73 Y S ex:Male Date:08/19/2024 Address:[address] [place], [place] [phone] Subjective: * Chief Complaints: * 1 . 2 month repeat PSA. * Medical History: Objective: * Vitals: Assessment: * Assessment: 1. P rostatism - N40.0 (Primary) Plan: * Treatment: * Procedure Codes: 3 6415 VENIPUNCT, ROUTINE* * * The named appointment provid er may or may not be the originator of this progress note, and it is not deemed complete until electronically signed by the appointment provider. Sign off status: Pending * Provider: Jean Ashby MD Date: 08/19/2024 Generated for Monica robert/Gurinder/Caititting on: 08/19/2024 12:28 PM EDT
--- OUTSIDE RECORDS SUMMARY | 2024-08-19 12:28 | XMS_ITS | Patient Health Record ---
Author Organization [facility] Address [address] [place] [phone] Care Team Providers Care Ethyl Blender Name Role Phone Symone CHOUDHARY, Danish Primary [...] Problem Status W/U Status Risk Notes Problem 273989415 Colon cancer screening (Z12.11) Active confirmed Plan Of Treatment Future Test Test Name Order Date COLONOSCOPY CONTROL OF BLEEDING ANY METH OD 10/24/2022 COLONOSCOPY 10/24/2022 Insurance Providers Payer Name Payer Address Payer Phone Subscriber Number Group Number Insured Name Patient Relationship to Insured Coverage Start Date Coverage End Date MEDICARE OF [place] [address] [place] [address] [id number] JANE ISRAEL Self - patient is the insured [employer] CLAIMS [address] [place] [address] [id number] JANE ISRAEL Self - patient is the insured Medical (General) History Medical History History ICD Code Gastroesophageal reflux disease Insomnia Colonoscopy 03/24, lymphoid polyp, ten-ye ar followup Back pain Arthritis Elevated PSA Surgical History Surgery Date(Month/Year) bilateral hip replacement shoulder surgery lower back x2 bilateral knees
--- OUTSIDE RECORDS SUMMARY | 2024-08-19 12:28 | XMS_ITS | Clinical Summary ---
Author Organization [address] [facility] Address [address] [place] [address] Phone Care Team Providers Care Route Sales Representative Name Role Phone Physician, Pcp Unknown Primary Care Provider Mechelle vailable Encounters Date Type Department Care Team Description 07/20/2024 Lab Requisition [facility] - Main Lab [address] [facility] [place] [address] Luis Gregory MD Personal history of malignant neoplasm of bladder [...] [employer] Screening 03/01/2024 Influenza Vaccine (#1) 2024 RSV Immunization Adult Patie nts (1 [...] Associated Diagnosis Comments AP OUTSIDE CONSULT Routine 07/13/2024 12 :00 AM EDT Personal history of malignant neoplasm of bladder from Last 3 Months Results * Anatomic pathology outside consult (07/13/2024 12:00 AM EDT) Final Diagnosis A. Urine, Voided, [id number]: Negative for high grade urothelial carcinoma. 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 Results of UroVysion fluorescence in situ hybridization (FISH) testing: CEP3: Normal CEP7: Normal CEP17: Normal LSI 9p21: Normal Interpretation: Normal profile Controls stained appropriately. Note: The results are intended as a screening device and should be interpreted in association with other clinical and pathological findings. 08/02/2024 9:25 AM EDT [facility]) [facility] Clinical Information History of bladder neoplasm (malignant) Z85.51 Urine Cytology/FISH (now) 08/02/2024 9:25 AM EDT [facility] Gross Description A. Urine, Voided, [id number]: Received one ThinPrep slide for cytology and one ThinPrep slide for UroVysion FISH 08/02/2024 9:25 AM EDT [facility] Disclaimer Unless otherwise specified, all tissue is 10% NB formalin fixed and paraffin embedded. Technical pathology services provided by [facility] at [address], [place] [address] (CLIA #[id number]/Marisa Liu MD, Gis Manager) 08/02/2024 9:25 AM EDT [facility] Tissue Urine specimen from urethra / Unknown 07/13/2024 07/20/2024 10:44 AM EDT us Luis Gregory MD LAB PATHOLOGY ORDERABLES Fi nal Result [facility] ([facility]) [facility] [address] [place] [address], [place] [phone] from Last 3 Months Insurance MEDICARE [facility] Care Teams Route Sales Representative Relationship Specialty Start Date End Date Physician, Pcp Unknown PCP - General 03/10/24
[2024-08-19 14:34] LABS: PSA,Total (Free>4and<10) 5.54 ng/mL (0.00-4.00)
[2024-08-20 11:43] LABS: Free Prostate Spec Ag 0.4 ng/mL; Percent Free Prostate Spec Ag 8 % (calc) (>25)
== END 2024-08-19 12:02 | disposition home or self-care (01) ==
LOC: HO.LNP 12:01
PROVIDERS: Visit Provider Internal Medicine
DX: N40.0 Benign prostatic hyperplasia without lower urinary tract symptoms (principal); Z12.5 Encounter for screening for malignant neoplasm of prostate
CPT/HCPCS: 84153; 84154